=== PATIENT | male | born 1960 | race African-American/Black ===

== ENCOUNTER 2019-02-02 09:26 | Emergency (ER) | payer MEDICAID ==
[~2019-02-02] VITALS: Ht 172.7 cm; Wt 90.0 kg
[~2019-02-02 09:26] MED LIST: HYDR25TA
[2019-02-02] MEDS ORDERED: MORPHINE SULFATE 4 MG/ML CPJ (NOT FOR IM USE) IV STA (10:28)
[2019-02-02] MEDS ORDERED: ONDANSETRON HCL 4MG/2ML INJ IV STA (10:28)
[2019-02-02 10:52] LABS: CHLORIDE 108 mEq/L (98-107)
[2019-02-02 10:58] LABS: BASOPHILS % 0.8 % (0.0-2.0); EOSINOPHILS % 0.4 % (0.0-5.0); HEMATOCRIT. 41.7 % (42.0-52.0); HEMOGLOBIN. 14.4 g/dL (14.0-18.0); LYMPHOCYTES % 18.5 % (20.0-50.0); MEAN CORPUSCULAR HEMOGLOBIN 25.4 pg (28.0-32.0); MEAN CORPUSCULAR VOLUME 73.8 fL (80.0-94.0); MEAN PLATELET VOLUME 8.3 fl (7.4-10.4); MONOCYTES % 7.7 % (2.0-8.0); NEUTROPHILS % 72.6 % (40.0-76.0); PLATELET 375 x1000/uL (130-400); RED BLOOD CELL COUNT 5.65 mill/uL (4.7-6.1); RED CELL DISTRIBUTION WIDTH 16.3 % (11.6-14.6)
[2019-02-02 11:04] LABS: INR 0.9; PROTHROMBIN TIME 9.5 sec (9.6-11.0)
[2019-02-02] MEDS ORDERED: SODIUM CHLORIDE 0.9% 1,000 ML IV ONE (11:38)
[2019-02-02] MEDS ORDERED: LIDOCAINE 1%/EPI 1:100,000 10 ML VIAL IJ ONE (11:45)
[2019-02-02] MEDS ORDERED: CLONIDINE 0.1MG TABLET PO ONE (12:00)
[2019-02-02] MEDS ORDERED: LIDOCAINE HCL/EPINEPHRINE 1%-EPI 1:100,000 20 ML VIAL INFIL ONE (12:06)
[2019-02-02 14:00] VITALS: BP 161/112
== END 2019-02-02 15:20 | disposition home or self-care (01) ==
LOC: ER 09:26
DX: M25.462 Effusion, left knee (principal); I10 Essential (primary) hypertension; N19 Unspecified kidney failure
CPT/HCPCS: 20610; 36415; 73562; 80053; 84550; 85025; 85610; 85651; 86140; 87070; 87205; 89050; 89060; 96374; 96375; 99284; J2270; J2405; J3490; J7030; Z7610

== ENCOUNTER 2019-07-02 12:30 | Inpatient (IN) | payer MEDICAID, OTHER ==
[~2019-07-02] VITALS: Ht 170.2 cm; Wt 83.9 kg
[2019-07-02] MEDS ORDERED: HYDROCHLOROTHIAZIDE 25MG TABLET PO ONE (15:30)
[2019-07-02] MEDS ORDERED: AMLODIPINE 5MG TABLET PO ONE ×2 (15:30→23:30)
[2019-07-02 15:54] LABS: BASOPHILS % 0.5 % (0.0-2.0); EOSINOPHILS % 0.6 % (0.0-5.0); HEMATOCRIT. 43.1 % (42.0-52.0); HEMOGLOBIN. 14.8 g/dL (14.0-18.0); LYMPHOCYTES % 26.8 % (20.0-50.0); MEAN CORPUSCULAR HEMOGLOBIN 25.6 pg (28.0-32.0); MEAN CORPUSCULAR VOLUME 74.2 fL (80.0-94.0); MEAN PLATELET VOLUME 7.9 fl (7.4-10.4); MONOCYTES % 9.4 % (2.0-8.0); NEUTROPHILS % 62.7 % (40.0-76.0); PLATELET 415 x1000/uL (130-400)
[2019-07-02 15:58] LABS: CHLORIDE 106 mEq/L (98-107)
[2019-07-02] MEDS ORDERED: ACETAMINOPHEN 325MG TABLET PO ONE (17:45)
[2019-07-02] MEDS ORDERED: CLONIDINE 0.2MG TABLET PO ONE (18:30)
[2019-07-02 22:02] LABS: CLARITY URINE CLEAR (CLEAR); COLOR URINE YELLOW (YELLOW); KETONES URINE NEGATIVE (NEGATIVE); LEUKOCYTE ESTERASE URINE NEGATIVE (NEGATIVE); NITRITE URINE NEGATIVE (NEGATIVE); OCCULT BLOOD URINE TRACE (NEGATIVE); PH URINE 7.5 (4.5-8.0); PROTEIN URINE 2+ (NEGATIVE)
[2019-07-02 22:15] LABS: *AMPHETAMINES SCREEN URINE NEGATIVE (NEGATIVE)
[2019-07-02 22:16] LABS: *BARBITURATES SCREEN URINE NEGATIVE (NEGATIVE); *BENZODIAZEPINES SCREEN URINE NEGATIVE (NEGATIVE); *COCAINE SCREEN URINE PRESUMTIVE POSITIVE (NEGATIVE); CANNABINOID URINE SCREEN NEGATIVE (NEGATIVE); METHADONE URINE SCREEN NEGATIVE (NEGATIVE); OPIATES URINE SCREEN NEGATIVE (NEGATIVE); PHENCYCLIDINE URINE SCREEN NEGATIVE (NEGATIVE)
[2019-07-03] MEDS ORDERED: CLONIDINE 0.1MG TABLET PO NR (09:00)
[2019-07-03] MEDS ORDERED: MORPHINE SULFATE 2 MG/ML CPJ (NOT FOR IM USE) IV PRN (09:00)
[2019-07-03] MEDS ORDERED: ONDANSETRON HCL 4MG/2ML INJ IV PRN (09:15)
[2019-07-03] MEDS: SODIUM CHLORIDE 0.9% 1,000 ML IV SCH ×2 (09:15→23:10)
[2019-07-03] MEDS ORDERED: POTASSIUM CHLORIDE 20MEQ TABLET SR PO NR (09:15)
[2019-07-03] MEDS: HYDROCODONE/ACETAMINOPHEN 5/325MG TABLET PO PRN ×2 (10:29→16:12)
[2019-07-03] MEDS: ACETAMINOPHEN 325MG TABLET PO PRN (10:31)
[2019-07-03] MEDS ORDERED: TAMSULOSIN HCL 0.4MG SR CAPSULE PO NR (12:45)
[2019-07-03 15:05] VITALS: BP 175/114
[2019-07-03] MEDS: CLONIDINE 0.1MG TABLET PO PRN ×2 (15:14→23:50)
[2019-07-03] MEDS ORDERED: CLON0.1T MT (16:07)
[2019-07-03] MEDS ORDERED: LISI2.5T47 MT (16:08)
[2019-07-03] MEDS: HYDRALAZINE HCL 50MG TABLET PO SCH (16:12)
[2019-07-03] MEDS: AMLODIPINE 5MG TABLET PO SCH ×2 (16:12→20:43)
[2019-07-03 20:00] VITALS: BP 137/93
[2019-07-04] VITALS (7 sets, daily range): BP systolic 118–156; BP diastolic 85–101
[2019-07-04] MEDS: CLONIDINE 0.1MG TABLET PO PRN ×2 (05:51→08:25)
[2019-07-04 07:31] LABS: BASOPHILS % 0.4 % (0.0-2.0); EOSINOPHILS % 1.1 % (0.0-5.0); HEMATOCRIT. 39.7 % (42.0-52.0); HEMOGLOBIN. 14.3 g/dL (14.0-18.0); LYMPHOCYTES % 39.6 % (20.0-50.0); MEAN CORPUSCULAR HEMOGLOBIN 26.8 pg (28.0-32.0); MEAN CORPUSCULAR VOLUME 74.7 fL (80.0-94.0); MEAN PLATELET VOLUME 7.8 fl (7.4-10.4); MONOCYTES % 9.3 % (2.0-8.0); NEUTROPHILS % 49.6 % (40.0-76.0); PLATELET 376 x1000/uL (130-400); RED BLOOD CELL COUNT 5.32 mill/uL (4.7-6.1); RED CELL DISTRIBUTION WIDTH 14.7 % (11.6-14.6)
[2019-07-04 08:08] LABS: PHOSPHORUS 2.5 mg/dL (2.5-4.9)
[2019-07-04] MEDS: HYDRALAZINE HCL 50MG TABLET PO SCH (08:25)
[2019-07-04] MEDS: AMLODIPINE 5MG TABLET PO SCH (08:26)
[2019-07-04] MEDS: ACETAMINOPHEN 325MG TABLET PO PRN (08:29)
[2019-07-04] MEDS ORDERED: TAMSULOSIN HCL 0.4MG SR CAPSULE PO SCH (09:00)
[2019-07-04] MEDS: SODIUM CHLORIDE 0.9% 1,000 ML IV SCH (12:13)
[2019-07-04] MEDS ORDERED: POTASSIUM CHLORIDE 20MEQ TABLET SR PO NR (12:15)
[2019-07-04] MEDS ORDERED: AMLO5TAB88 PO (14:26)
[2019-07-04] MEDS ORDERED: TAMS-11 MT (14:26)
[2019-07-04] MEDS ORDERED: HYDR-4135 MT (14:26)
== END 2019-07-04 17:01 | disposition home or self-care (01) | DRG 469 ==
LOC: ER 14:04 → 6WST 20:59 → EDBEDREQ 21:02 → EDBEDREQTM 21:02 → ENRESERV 07-03 13:16
PROVIDERS: ADMIT Internal Medicine; ATTEND Internal Medicine
DX: N17.9 Acute kidney failure, unspecified (principal); E43 Unspecified severe protein-calorie malnutrition; I16.0 Hypertensive urgency; N18.4 Chronic kidney disease, stage 4 (severe); I12.9 Hypertensive chronic kidney disease with stage 1 through stage 4 chronic kidney disease, or unspecified chronic kidney disease; E87.6 Hypokalemia; N40.0 Benign prostatic hyperplasia without lower urinary tract symptoms; F14.129 Cocaine abuse with intoxication, unspecified; N28.1 Cyst of kidney, acquired; F17.200 Nicotine dependence, unspecified, uncomplicated; G43.909 Migraine, unspecified, not intractable, without status migrainosus; M19.90 Unspecified osteoarthritis, unspecified site; K21.9 Gastro-esophageal reflux disease without esophagitis; Z91.19 Patient's noncompliance with other medical treatment and regimen; Z71.51 Drug abuse counseling and surveillance of drug abuser; Z82.49 Family history of ischemic heart disease and other diseases of the circulatory system; Z87.440 Personal history of urinary (tract) infections; Z91.14 Patient's other noncompliance with medication regimen; Z68.29 Body mass index [BMI] 29.0-29.9, adult
CPT/HCPCS: 36415; 71045; 73130; 76770; 80048; 80053; 80061; 80305; 81003; 83036; 83605; 83735; 83880; 84100; 84443; 84484; 85025; 93005; 93306; 99285; J2270

== ENCOUNTER 2020-03-17 19:52 | Emergency (ER) | payer OTHER ==
[~2020-03-17] VITALS: Ht 175.3 cm; Wt 82.1 kg
[~2020-03-17 19:52] MED LIST changes: +AMLO5TAB88 PO; +HYDR-4135 MT; -HYDR25TA; +TAMS-11 MT
[2020-03-17 22:12] LABS: BASOPHILS % 0.6 % (0.0-2.0); EOSINOPHILS % 2.3 % (0.0-5.0); HEMATOCRIT. 42.5 % (42.0-52.0); HEMOGLOBIN. 14.5 g/dL (14.0-18.0); LYMPHOCYTES % 38.6 % (20.0-50.0); MEAN CORPUSCULAR HEMOGLOBIN 26.2 pg (28.0-32.0); MEAN CORPUSCULAR VOLUME 77.2 fL (80.0-94.0); MEAN PLATELET VOLUME 8.4 fl (7.4-10.4); NEUTROPHILS % 48.5 % (40.0-76.0); PLATELET 330 x1000/uL (130-400); RED BLOOD CELL COUNT 5.51 mill/uL (4.7-6.1); RED CELL DISTRIBUTION WIDTH 16.2 % (11.6-14.6)
[2020-03-17] MEDS ORDERED: AMLODIPINE 10MG TABLET PO ONE (22:15)
[2020-03-17] MEDS ORDERED: ACETAMINOPHEN 325MG TABLET PO ONE (22:15)
[2020-03-17 22:17] LABS: CHLORIDE 111 mEq/L (98-107)
[2020-03-18] MEDS ORDERED: CLONIDINE 0.1MG TABLET PO ONE (01:15)
[2020-03-18 10:12] VITALS: BP 154/95
== END 2020-03-18 10:41 | disposition short-term general hospital (02) ==
LOC: ER 19:52
DX: I16.0 Hypertensive urgency (principal); I10 Essential (primary) hypertension; N28.9 Disorder of kidney and ureter, unspecified; F14.10 Cocaine abuse, uncomplicated; F12.10 Cannabis abuse, uncomplicated; Z79.899 Other long term (current) drug therapy
CPT/HCPCS: 36415; 71045; 80053; 83880; 84484; 85025; 93005; 99285

== ENCOUNTER 2021-06-29 06:46 | Inpatient (IN) | payer OTHER ==
[~2021-06-29] VITALS: Ht 175.3 cm; Wt 78.0 kg
[~2021-06-29 06:46] MED LIST changes: +ASPI-986 MT
[2021-06-29 11:12] LABS: HEMATOCRIT. 37.2 % (42.0-52.0); HEMOGLOBIN. 12.5 g/dL (14.0-18.0); MEAN CORPUSCULAR HEMOGLOBIN 24.9 pg (28.0-32.0); MEAN CORPUSCULAR VOLUME 74.2 fL (80.0-94.0); MEAN PLATELET VOLUME 8.1 fl (7.4-10.4); PLATELET 335 x1000/uL (130-400); RED BLOOD CELL COUNT 5.01 mill/uL (4.7-6.1)
[2021-06-29 11:18] LABS: CHLORIDE 109 mEq/L (98-107)
[2021-06-29 11:56] LABS: PLATELET ESTIMATE NORMAL
[2021-06-29] MEDS ORDERED: ASPIRIN 325MG TABLET PO ONE (12:30)
[2021-06-29] MEDS ORDERED: NITROGLYCERIN 0.4MG TABLET SL SL ONE (12:30)
[2021-06-29] MEDS ORDERED: FUROSEMIDE 100MG/10ML VIAL IVP ONE (12:30)
[2021-06-29] MEDS ORDERED: ONDANSETRON HCL 4MG/2ML INJ IV PRN (16:15)
[2021-06-29] MEDS ORDERED: ACETAMINOPHEN 325MG TABLET PO PRN (16:15)
[2021-06-29] MEDS: AMLODIPINE 10MG TABLET PO SCH (17:01)
[2021-06-29] MEDS: FUROSEMIDE 40MG/4ML VIAL IVP SCH (17:05)
[2021-06-29] MEDS: METOPROLOL TARTRATE 50MG TABLET PO SCH (21:32)
[2021-06-30] MEDS: CLONIDINE 0.1MG TABLET PO PRN (00:23)
[2021-06-30 04:00] VITALS: BP 151/103
[2021-06-30 04:03] VITALS: BP 151/103
[2021-06-30 08:00] VITALS: BP 145/107
[2021-06-30] MEDS: FUROSEMIDE 40MG/4ML VIAL IVP SCH ×2 (08:53→16:35)
[2021-06-30] MEDS: METOPROLOL TARTRATE 50MG TABLET PO SCH ×2 (08:54→20:55)
[2021-06-30] MEDS: AMLODIPINE 10MG TABLET PO SCH (08:54)
[2021-06-30 11:29] LABS: HEMATOCRIT. 31.8 % (42.0-52.0); HEMOGLOBIN. 10.6 g/dL (14.0-18.0); MEAN CORPUSCULAR HEMOGLOBIN 24.7 pg (28.0-32.0); MEAN CORPUSCULAR VOLUME 73.6 fL (80.0-94.0); MEAN PLATELET VOLUME 8.7 fl (7.4-10.4); PLATELET 270 x1000/uL (130-400); RED BLOOD CELL COUNT 4.32 mill/uL (4.7-6.1); RED CELL DISTRIBUTION WIDTH 15.1 % (11.6-14.6)
[2021-06-30 12:00] VITALS: BP 138/74
[2021-06-30 13:11] LABS: BG BASE EXCESS -7.1 mmol/L (-2.0-2.0); BG CARBOXYHEMOGLOBIN 0.3 % (0.5-1.5); BG DEOXYHEMOGLOBIN 6.5 % (0.0-5.0); BG HCO3 ACT 17.6 mmol/L (22.0-26.0); BG METHEMOGLOBIN 0.2 % (0.0-1.5); BG OXYGEN SATURATION 93.5 % (92.0-98.5); BG PCO2 33.2 mmHg (35.0-45.0); BG PH 7.343 (7.350-7.450); BG PO2 77.4 mmHg (75.0-100.0); BG SAMPLE SITE LEFT RADIAL; BG VENT MODE NASAL CANNULA
[2021-06-30] MEDS: CEFTRIAXONE 1,000 MG in DEXTROSE 5% WATER 50 ML IV SCH (13:23)
[2021-06-30] MEDS: DEXAMETHASONE 10 MG/ML VIAL IV SCH (13:23)
[2021-06-30 16:00] VITALS: BP 141/98
[2021-06-30 16:01] LABS: CLARITY URINE CLEAR (CLEAR); COLOR URINE YELLOW (YELLOW); KETONES URINE NEGATIVE (NEGATIVE); LEUKOCYTE ESTERASE URINE NEGATIVE (NEGATIVE); NITRITE URINE NEGATIVE (NEGATIVE); OCCULT BLOOD URINE 2+ (NEGATIVE); PROTEIN URINE 3+ (NEGATIVE); SPECIFIC GRAVITY URINE 1.012 (1.005-1.030); UROBILINOGEN URINE 0.2 E.U./dL (0.2-1.0)
[2021-06-30 16:19] LABS: *AMPHETAMINES SCREEN URINE NEGATIVE (NEGATIVE); *BARBITURATES SCREEN URINE NEGATIVE (NEGATIVE); *BENZODIAZEPINES SCREEN URINE NEGATIVE (NEGATIVE); *COCAINE SCREEN URINE PRESUMTIVE POSITIVE (NEGATIVE); METHADONE URINE SCREEN NEGATIVE (NEGATIVE)
[2021-06-30 16:20] LABS: CANNABINOID URINE SCREEN NEGATIVE (NEGATIVE); OPIATES URINE SCREEN NEGATIVE (NEGATIVE); PHENCYCLIDINE URINE SCREEN NEGATIVE (NEGATIVE)
[2021-06-30 20:00] VITALS: BP 144/109
[2021-07-01 04:00] VITALS: BP 148/106
[2021-07-01 08:00] VITALS: BP 137/102
[2021-07-01 08:47] LABS: PHOSPHORUS 6.4 mg/dL (2.5-4.9)
[2021-07-01] MEDS: METOPROLOL TARTRATE 50MG TABLET PO SCH ×2 (09:09→21:45)
[2021-07-01] MEDS: AMLODIPINE 10MG TABLET PO SCH (09:09)
[2021-07-01] MEDS: FUROSEMIDE 40MG/4ML VIAL IVP SCH (09:10)
[2021-07-01] MEDS: DEXAMETHASONE 10 MG/ML VIAL IV SCH (09:10)
[2021-07-01 11:50] LABS: BASOPHILS % 0.3 % (0.0-2.0); EOSINOPHILS % 0.2 % (0.0-5.0); HEMATOCRIT. 34.7 % (42.0-52.0); HEMOGLOBIN. 11.5 g/dL (14.0-18.0); LYMPHOCYTES % 22.8 % (20.0-50.0); MEAN CORPUSCULAR HEMOGLOBIN 24.7 pg (28.0-32.0); MEAN CORPUSCULAR VOLUME 74.3 fL (80.0-94.0); MEAN PLATELET VOLUME 9.2 fl (7.4-10.4); MONOCYTES % 12.6 % (2.0-8.0); NEUTROPHILS % 64.1 % (40.0-76.0); PLATELET 331 x1000/uL (130-400); RED BLOOD CELL COUNT 4.67 mill/uL (4.7-6.1); RED CELL DISTRIBUTION WIDTH 15.2 % (11.6-14.6)
[2021-07-01 14:00] VITALS: BP 134/104
[2021-07-01] MEDS: CEFTRIAXONE 1,000 MG in DEXTROSE 5% WATER 50 ML IV SCH (14:27)
[2021-07-01 14:36] LABS: PLATELET ESTIMATE NORMAL
[2021-07-01 16:30] VITALS: BP 125/90
[2021-07-01] MEDS ORDERED: ALBUTEROL 6.7GM HFA INHALER ORI PRN (17:00)
[2021-07-01 20:00] VITALS: BP 139/93
[2021-07-02] VITALS (7 sets, daily range): BP systolic 116–141; BP diastolic 89–103
[2021-07-02 06:54] LABS: PHOSPHORUS 6.6 mg/dL (2.5-4.9)
[2021-07-02 06:56] LABS: HEMATOCRIT. 33.4 % (42.0-52.0); HEMOGLOBIN. 11.3 g/dL (14.0-18.0); LYMPHOCYTES % 16.3 % (20.0-50.0); MEAN CORPUSCULAR HEMOGLOBIN 24.9 pg (28.0-32.0); MEAN CORPUSCULAR VOLUME 73.5 fL (80.0-94.0); MEAN PLATELET VOLUME 8.7 fl (7.4-10.4); MONOCYTES % 9.3 % (2.0-8.0); NEUTROPHILS % 74.4 % (40.0-76.0); PLATELET 332 x1000/uL (130-400); RED BLOOD CELL COUNT 4.54 mill/uL (4.7-6.1); RED CELL DISTRIBUTION WIDTH 15.2 % (11.6-14.6)
[2021-07-02] MEDS: AMLODIPINE 10MG TABLET PO SCH (08:15)
[2021-07-02] MEDS: METOPROLOL TARTRATE 50MG TABLET PO SCH ×2 (08:15→21:00)
[2021-07-02] MEDS: DEXAMETHASONE 10 MG/ML VIAL IV SCH (08:15)
[2021-07-02] MEDS: CEFTRIAXONE 1,000 MG in DEXTROSE 5% WATER 50 ML IV SCH (14:25)
[2021-07-03] VITALS: BP 140/98
[2021-07-03 07:34] LABS: BASOPHILS % 0.1 % (0.0-2.0); EOSINOPHILS % 0.2 % (0.0-5.0); HEMATOCRIT. 31.6 % (42.0-52.0); HEMOGLOBIN. 10.6 g/dL (14.0-18.0); LYMPHOCYTES % 17.5 % (20.0-50.0); MEAN CORPUSCULAR HEMOGLOBIN 24.7 pg (28.0-32.0); MEAN CORPUSCULAR VOLUME 73.5 fL (80.0-94.0); NEUTROPHILS % 73.2 % (40.0-76.0); PLATELET 339 x1000/uL (130-400); RED CELL DISTRIBUTION WIDTH 15.3 % (11.6-14.6)
[2021-07-03 07:51] LABS: PHOSPHORUS 5.4 mg/dL (2.5-4.9)
[2021-07-03 08:00] VITALS: BP 105/55
[2021-07-03] MEDS: METOPROLOL TARTRATE 50MG TABLET PO SCH ×2 (08:32→20:34)
[2021-07-03] MEDS: AMLODIPINE 10MG TABLET PO SCH (08:32)
[2021-07-03] MEDS: DEXAMETHASONE 10 MG/ML VIAL IV SCH (08:33)
[2021-07-03 12:00] VITALS: BP 123/90
[2021-07-03] MEDS: CEFTRIAXONE 1,000 MG in DEXTROSE 5% WATER 50 ML IV SCH (14:41)
[2021-07-03 16:00] VITALS: BP 126/89
[2021-07-03 20:00] VITALS: BP 148/94
[2021-07-04 04:03] VITALS: BP 132/85
[2021-07-04 08:00] VITALS: BP 138/109
[2021-07-04] MEDS: DEXAMETHASONE 10 MG/ML VIAL IV SCH (08:17)
[2021-07-04] MEDS: METOPROLOL TARTRATE 50MG TABLET PO SCH ×2 (08:18→20:28)
[2021-07-04] MEDS: AMLODIPINE 10MG TABLET PO SCH (08:18)
[2021-07-04 09:08] LABS: BASOPHILS % 0.1 % (0.0-2.0); EOSINOPHILS % 0.2 % (0.0-5.0); HEMATOCRIT. 33.4 % (42.0-52.0); HEMOGLOBIN. 11.1 g/dL (14.0-18.0); LYMPHOCYTES % 19.7 % (20.0-50.0); MEAN CORPUSCULAR HEMOGLOBIN 24.7 pg (28.0-32.0); MEAN CORPUSCULAR VOLUME 74.6 fL (80.0-94.0); MEAN PLATELET VOLUME 8.9 fl (7.4-10.4); PLATELET 366 x1000/uL (130-400); RED BLOOD CELL COUNT 4.47 mill/uL (4.7-6.1); RED CELL DISTRIBUTION WIDTH 15.3 % (11.6-14.6)
[2021-07-04 09:27] LABS: PHOSPHORUS 4.7 mg/dL (2.5-4.9)
[2021-07-04 12:00] VITALS: BP 129/93
[2021-07-04] MEDS: CEFTRIAXONE 1,000 MG in DEXTROSE 5% WATER 50 ML IV SCH (14:24)
[2021-07-04 16:00] VITALS: BP 132/93
[2021-07-04 20:00] VITALS: BP 149/106
[2021-07-05 04:00] VITALS: BP 142/86
[2021-07-05 08:00] VITALS: BP 169/104
[2021-07-05] MEDS: AMLODIPINE 10MG TABLET PO SCH (08:56)
[2021-07-05] MEDS: DEXAMETHASONE 10 MG/ML VIAL IV SCH (08:56)
[2021-07-05] MEDS: METOPROLOL TARTRATE 50MG TABLET PO SCH ×2 (08:56→21:15)
[2021-07-05 11:17] LABS: HEMATOCRIT. 32.8 % (42.0-52.0); HEMOGLOBIN. 10.9 g/dL (14.0-18.0); MEAN CORPUSCULAR HEMOGLOBIN 24.5 pg (28.0-32.0); MEAN CORPUSCULAR VOLUME 73.4 fL (80.0-94.0); MEAN PLATELET VOLUME 8.7 fl (7.4-10.4); PLATELET 421 x1000/uL (130-400); RED BLOOD CELL COUNT 4.47 mill/uL (4.7-6.1); RED CELL DISTRIBUTION WIDTH 15.2 % (11.6-14.6)
[2021-07-05 11:25] LABS: PHOSPHORUS 3.8 mg/dL (2.5-4.9)
[2021-07-05 12:00] VITALS: BP 129/55
[2021-07-05 14:14] LABS: PLATELET ESTIMATE SLIGHTLY INCREASED
[2021-07-05] MEDS: CEFTRIAXONE 1,000 MG in DEXTROSE 5% WATER 50 ML IV SCH (15:44)
[2021-07-05 15:48] VITALS: BP 135/86
[2021-07-05] MEDS ORDERED: ALBU18HF2 IH (19:37)
[2021-07-05 20:00] VITALS: BP 158/102
[2021-07-06 04:00] VITALS: BP 148/94
[2021-07-06 06:33] VITALS: BP 145/94
[2021-07-06 08:00] VITALS: BP 165/107
[2021-07-06] MEDS: AMLODIPINE 10MG TABLET PO SCH (08:47)
[2021-07-06] MEDS: DEXAMETHASONE 10 MG/ML VIAL IV SCH (08:47)
[2021-07-06] MEDS: METOPROLOL TARTRATE 50MG TABLET PO SCH (08:47)
[2021-07-06 11:29] LABS: BASOPHILS % 0.3 % (0.0-2.0); EOSINOPHILS % 0.5 % (0.0-5.0); HEMATOCRIT. 33.4 % (42.0-52.0); HEMOGLOBIN. 11.2 g/dL (14.0-18.0); LYMPHOCYTES % 11.1 % (20.0-50.0); MEAN CORPUSCULAR HEMOGLOBIN 24.7 pg (28.0-32.0); MEAN CORPUSCULAR VOLUME 73.5 fL (80.0-94.0); MEAN PLATELET VOLUME 8.9 fl (7.4-10.4); MONOCYTES % 7.4 % (2.0-8.0); NEUTROPHILS % 80.7 % (40.0-76.0); PLATELET 419 x1000/uL (130-400); RED BLOOD CELL COUNT 4.54 mill/uL (4.7-6.1); RED CELL DISTRIBUTION WIDTH 15.5 % (11.6-14.6)
[2021-07-06 11:38] LABS: PHOSPHORUS 3.4 mg/dL (2.5-4.9)
[2021-07-06 11:41] VITALS: BP 160/115
[2021-07-06] MEDS: CLONIDINE 0.1MG TABLET PO PRN (11:42)
[2021-07-06 12:50] VITALS: BP 145/94
== END 2021-07-06 14:35 | disposition home or self-care (01) | DRG 720 ==
LOC: ER 06:46 → EDBEDREQTM 15:00 → EDBEDREQ 15:00 → ENRESERV 06-30 02:51 → 7EST 06-30 03:01
PROVIDERS: ADMIT Internal Medicine; ATTEND Internal Medicine
DX: A41.89 Other specified sepsis (principal); J96.01 Acute respiratory failure with hypoxia; N17.0 Acute kidney failure with tubular necrosis; J12.82 Pneumonia due to coronavirus disease 2019; E43 Unspecified severe protein-calorie malnutrition; U07.1 COVID-19; E11.22 Type 2 diabetes mellitus with diabetic chronic kidney disease; J68.0 Bronchitis and pneumonitis due to chemicals, gases, fumes and vapors; E87.8 Other disorders of electrolyte and fluid balance, not elsewhere classified; I13.0 Hypertensive heart and chronic kidney disease with heart failure and stage 1 through stage 4 chronic kidney disease, or unspecified chronic kidney disease; I50.9 Heart failure, unspecified; D64.9 Anemia, unspecified; E87.5 Hyperkalemia; F14.10 Cocaine abuse, uncomplicated; N18.4 Chronic kidney disease, stage 4 (severe); N28.1 Cyst of kidney, acquired; N40.0 Benign prostatic hyperplasia without lower urinary tract symptoms; Z82.49 Family history of ischemic heart disease and other diseases of the circulatory system; Z83.3 Family history of diabetes mellitus; N18.9 Chronic kidney disease, unspecified; Z86.16 Personal history of COVID-19; Z68.25 Body mass index [BMI] 25.0-25.9, adult
CPT/HCPCS: 36415; 36600; 71045; 76770; 80048; 80053; 80305; 81003; 82375; 82550; 82805; 83735; 83880; 84100; 84484; 85025; 87426; 93005; 99285; C9803; J0696; J1100; J1940; J7060; U0003; U0005

== ENCOUNTER 2021-07-18 06:23 | Inpatient (IN) | payer OTHER ==
[~2021-07-18] VITALS: Ht 182.9 cm; Wt 85.7 kg
[~2021-07-18 06:23] MED LIST changes: +ALBU18HF2 IH
[2021-07-18 07:29] LABS: BASOPHILS % 0.9 % (0.0-2.0); EOSINOPHILS % 0.8 % (0.0-5.0); HEMATOCRIT. 33.5 % (42.0-52.0); LYMPHOCYTES % 23.8 % (20.0-50.0); MEAN CORPUSCULAR HEMOGLOBIN 24.4 pg (28.0-32.0); MEAN CORPUSCULAR VOLUME 74.4 fL (80.0-94.0); MEAN PLATELET VOLUME 8.7 fl (7.4-10.4); MONOCYTES % 11.6 % (2.0-8.0); NEUTROPHILS % 62.9 % (40.0-76.0); PLATELET 394 x1000/uL (130-400); RED CELL DISTRIBUTION WIDTH 16.1 % (11.6-14.6)
[2021-07-18 07:35] LABS: CHLORIDE 110 mEq/L (98-107)
[2021-07-18] MEDS ORDERED: NITROGLYCERIN 0.4MG TABLET SL SL PRN (11:45)
[2021-07-18] MEDS ORDERED: ENOXAPARIN 40MG/0.4ML SYR SUBCUT SCH (11:45)
[2021-07-18] MEDS ORDERED: ACETAMINOPHEN 325MG TABLET PO PRN ×2 (11:45)
[2021-07-18] MEDS ORDERED: CLONIDINE 0.1MG TABLET PO PRN (11:45)
[2021-07-18] MEDS ORDERED: MAGNESIUM/ALUMINUM HYDROXIDE/SIMETHICONE 30ML UDC PO PRN (11:45)
[2021-07-18] MEDS ORDERED: GUAIFENESIN 200MG/10ML SUGAR FREE UDC PO PRN (11:45)
[2021-07-18] MEDS ORDERED: DOCUSATE SODIUM 100MG CAPSULE PO PRN (11:45)
[2021-07-18] MEDS ORDERED: IPRATROPIUM/ALBUTEROL 0.5-3(2.5)MG/3ML NEB NEB PRN (11:45)
[2021-07-18] MEDS ORDERED: METOLAZONE 10MG TABLET PO NR (11:45)
[2021-07-18] MEDS ORDERED: ONDANSETRON HCL 4MG/2ML INJ IV PRN (11:45)
[2021-07-18] MEDS: ENOXAPARIN 30MG/0.3ML SYR SUBCUT SCH (12:00)
[2021-07-18 12:30] LABS: CLARITY URINE CLEAR (CLEAR); COLOR URINE YELLOW (YELLOW); KETONES URINE NEGATIVE (NEGATIVE); LEUKOCYTE ESTERASE URINE NEGATIVE (NEGATIVE); NITRITE URINE NEGATIVE (NEGATIVE); OCCULT BLOOD URINE TRACE (NEGATIVE); PROTEIN URINE 2+ (NEGATIVE); SPECIFIC GRAVITY URINE 1.014 (1.005-1.030); UROBILINOGEN URINE 0.2 E.U./dL (0.2-1.0)
[2021-07-18 12:44] LABS: *AMPHETAMINES SCREEN URINE NEGATIVE (NEGATIVE); *BARBITURATES SCREEN URINE NEGATIVE (NEGATIVE); *BENZODIAZEPINES SCREEN URINE NEGATIVE (NEGATIVE); *COCAINE SCREEN URINE PRESUMTIVE POSITIVE (NEGATIVE); CANNABINOID URINE SCREEN NEGATIVE (NEGATIVE); METHADONE URINE SCREEN NEGATIVE (NEGATIVE); PHENCYCLIDINE URINE SCREEN NEGATIVE (NEGATIVE)
[2021-07-18 12:45] LABS: OPIATES URINE SCREEN NEGATIVE (NEGATIVE)
[2021-07-18 12:50] LABS: BG BASE EXCESS -9.3 mmol/L (-2.0-2.0); BG CARBOXYHEMOGLOBIN 0.5 % (0.5-1.5); BG FRACTION INSPIRED OXYGEN 21; BG HCO3 ACT 14.4 mmol/L (22.0-26.0); BG METHEMOGLOBIN 0.2 % (0.0-1.5); BG OXYHEMOGLOBIN 96.3 % (94.0-97.0); BG PCO2 25.2 mmHg (35.0-45.0); BG PH 7.376 (7.350-7.450); BG PO2 99.5 mmHg (75.0-100.0); BG SAMPLE SITE RIGHT RADIAL; BG TOTAL HEMOGLOBIN 10.9 g/dL (12.0-18.0); BG VENT MODE ROOM AIR
[2021-07-18 12:55] LABS: FOLIC ACID (FOLATE) SERUM 7.9 ng/mL (>5.38)
[2021-07-18 16:07] LABS: CREATINE KINASE MB FRACTION 4.5 ng/mL (0.5-3.6)
[2021-07-18] MEDS: FUROSEMIDE 40MG/4ML VIAL IVP SCH (17:24)
[2021-07-18 19:44] LABS: CLARITY URINE CLEAR (CLEAR); COLOR URINE YELLOW (YELLOW); KETONES URINE NEGATIVE (NEGATIVE); LEUKOCYTE ESTERASE URINE NEGATIVE (NEGATIVE); NITRITE URINE NEGATIVE (NEGATIVE); OCCULT BLOOD URINE NEGATIVE (NEGATIVE); PROTEIN URINE 1+ (NEGATIVE); SPECIFIC GRAVITY URINE 1.008 (1.005-1.030); UROBILINOGEN URINE 0.2 E.U./dL (0.2-1.0)
[2021-07-18 19:53] LABS: *AMPHETAMINES SCREEN URINE NEGATIVE (NEGATIVE); *BARBITURATES SCREEN URINE NEGATIVE (NEGATIVE); *BENZODIAZEPINES SCREEN URINE NEGATIVE (NEGATIVE); *COCAINE SCREEN URINE PRESUMTIVE POSITIVE (NEGATIVE); METHADONE URINE SCREEN NEGATIVE (NEGATIVE); OPIATES URINE SCREEN NEGATIVE (NEGATIVE)
[2021-07-18 19:54] LABS: CANNABINOID URINE SCREEN NEGATIVE (NEGATIVE); PHENCYCLIDINE URINE SCREEN NEGATIVE (NEGATIVE)
[2021-07-18 20:44] LABS: CREATINE KINASE MB FRACTION 4.7 ng/mL (0.5-3.6)
[2021-07-18] MEDS ORDERED: ZOLPIDEM TARTRATE 5MG TABLET PO PRN (21:00)
[2021-07-18] MEDS: FAMOTIDINE 20MG TABLET PO SCH (21:06)
[2021-07-19 04:13] LABS: BASOPHILS % 0.6 % (0.0-2.0); EOSINOPHILS % 1.2 % (0.0-5.0); HEMATOCRIT. 27.4 % (42.0-52.0); HEMOGLOBIN. 9.3 g/dL (14.0-18.0); MEAN CORPUSCULAR HEMOGLOBIN 24.8 pg (28.0-32.0); MEAN CORPUSCULAR VOLUME 72.7 fL (80.0-94.0); MEAN PLATELET VOLUME 7.7 fl (7.4-10.4); MONOCYTES % 13.9 % (2.0-8.0); NEUTROPHILS % 65.3 % (40.0-76.0); PLATELET 300 x1000/uL (130-400); RED BLOOD CELL COUNT 3.76 mill/uL (4.7-6.1)
[2021-07-19 04:20] LABS: CHLORIDE 107 mEq/L (98-107)
[2021-07-19 04:26] LABS: PHOSPHORUS 5.7 mg/dL (2.5-4.9)
[2021-07-19 04:30] LABS: CREATINE KINASE 70 IU/L (39-308); T4 FREE 0.99 ng/dL (0.76-1.46)
[2021-07-19] MEDS: FUROSEMIDE 40MG/4ML VIAL IVP SCH ×2 (06:57→17:59)
[2021-07-19 08:00] VITALS: BP 163/97
[2021-07-19 12:00] VITALS: BP 141/87
[2021-07-19] MEDS: ASPIRIN 325MG EC TABLET PO SCH (12:07)
[2021-07-19] MEDS: AMLODIPINE 10MG TABLET PO SCH (12:07)
[2021-07-19] MEDS: ENOXAPARIN 30MG/0.3ML SYR SUBCUT SCH (12:11)
[2021-07-19 16:00] VITALS: BP 142/78
[2021-07-19 20:00] VITALS: BP 138/77
[2021-07-19] MEDS: FAMOTIDINE 20MG TABLET PO SCH (20:54)
[2021-07-20] VITALS: BP 143/73
[2021-07-20 04:00] VITALS: BP 147/88
[2021-07-20] MEDS: FUROSEMIDE 40MG/4ML VIAL IVP SCH ×2 (05:32→18:23)
[2021-07-20 07:54] LABS: HEMATOCRIT. 30.4 % (42.0-52.0); HEMOGLOBIN. 10.4 g/dL (14.0-18.0); MEAN CORPUSCULAR HEMOGLOBIN 24.7 pg (28.0-32.0); MEAN CORPUSCULAR VOLUME 71.9 fL (80.0-94.0); MEAN PLATELET VOLUME 8.1 fl (7.4-10.4); PLATELET 333 x1000/uL (130-400); RED BLOOD CELL COUNT 4.22 mill/uL (4.7-6.1); RED CELL DISTRIBUTION WIDTH 15.5 % (11.6-14.6)
[2021-07-20 07:55] LABS: BASOPHILS % 0.4 % (0.0-2.0); EOSINOPHILS % 0.9 % (0.0-5.0); LYMPHOCYTES % 14.7 % (20.0-50.0); MONOCYTES % 10.3 % (2.0-8.0); NEUTROPHILS % 73.7 % (40.0-76.0)
[2021-07-20 08:00] VITALS: BP 134/83
[2021-07-20] MEDS: ENOXAPARIN 30MG/0.3ML SYR SUBCUT SCH ×2 (09:00→09:42)
[2021-07-20] MEDS: ASPIRIN 325MG EC TABLET PO SCH (09:42)
[2021-07-20] MEDS: AMLODIPINE 10MG TABLET PO SCH (09:43)
[2021-07-20 12:00] VITALS: BP 155/93
[2021-07-20 16:00] VITALS: BP 144/89
[2021-07-20 20:00] VITALS: BP 137/89
[2021-07-20] MEDS: FAMOTIDINE 20MG TABLET PO SCH (20:49)
[2021-07-21] VITALS: BP 107/45
[2021-07-21 04:00] VITALS: BP 152/87
[2021-07-21] MEDS: FUROSEMIDE 40MG/4ML VIAL IVP SCH ×2 (05:34→16:17)
[2021-07-21 07:24] LABS: HEMATOCRIT. 33.4 % (42.0-52.0); HEMOGLOBIN. 11.6 g/dL (14.0-18.0); MEAN CORPUSCULAR HEMOGLOBIN 24.7 pg (28.0-32.0); MEAN CORPUSCULAR VOLUME 71.1 fL (80.0-94.0); MEAN PLATELET VOLUME 7.8 fl (7.4-10.4); PLATELET 342 x1000/uL (130-400); RED CELL DISTRIBUTION WIDTH 15.5 % (11.6-14.6)
[2021-07-21 07:51] LABS: PHOSPHORUS 3.8 mg/dL (2.5-4.9)
[2021-07-21 08:00] VITALS: BP 142/100
[2021-07-21] MEDS: AMLODIPINE 10MG TABLET PO SCH (08:09)
[2021-07-21] MEDS: ENOXAPARIN 30MG/0.3ML SYR SUBCUT SCH ×2 (08:09→08:11)
[2021-07-21] MEDS: ASPIRIN 325MG EC TABLET PO SCH (08:09)
[2021-07-21 11:55] VITALS: BP 143/95
[2021-07-21 16:00] VITALS: BP 118/73
[2021-07-21 16:13] LABS: PLATELET ESTIMATE NORMAL
[2021-07-21 20:00] VITALS: BP 130/86
[2021-07-21] MEDS: FAMOTIDINE 20MG TABLET PO SCH (21:54)
[2021-07-22 04:00] VITALS: BP 147/85
[2021-07-22 05:33] LABS: PHOSPHORUS 5.1 mg/dL (2.5-4.9)
[2021-07-22 06:00] LABS: BASOPHILS % 0.3 % (0.0-2.0); EOSINOPHILS % 4.3 % (0.0-5.0); HEMATOCRIT. 36.1 % (42.0-52.0); HEMOGLOBIN. 12.2 g/dL (14.0-18.0); LYMPHOCYTES % 30.3 % (20.0-50.0); MEAN CORPUSCULAR HEMOGLOBIN 24.2 pg (28.0-32.0); MEAN CORPUSCULAR VOLUME 71.7 fL (80.0-94.0); MONOCYTES % 14.8 % (2.0-8.0); NEUTROPHILS % 50.3 % (40.0-76.0); PLATELET 373 x1000/uL (130-400); RED BLOOD CELL COUNT 5.04 mill/uL (4.7-6.1); RED CELL DISTRIBUTION WIDTH 15.7 % (11.6-14.6)
[2021-07-22] MEDS: FUROSEMIDE 40MG/4ML VIAL IVP SCH ×3 (06:27→10:20)
[2021-07-22 08:00] VITALS: BP 148/80
[2021-07-22] MEDS: ENOXAPARIN 30MG/0.3ML SYR SUBCUT SCH (09:00)
[2021-07-22] MEDS: AMLODIPINE 10MG TABLET PO SCH (10:15)
[2021-07-22] MEDS: ASPIRIN 325MG EC TABLET PO SCH (10:15)
[2021-07-22] MEDS: FAMOTIDINE 20MG TABLET PO SCH (10:15)
[2021-07-22 12:00] VITALS: BP 151/80
[2021-07-22 13:52] VITALS: BP 148/80
[2021-09-05] MEDS ORDERED: HYDR-4135 MT (12:05)
[2021-09-05] MEDS ORDERED: NIFE-32 MT (12:05)
[2021-09-05] MEDS ORDERED: ALBU18HF2 IH (12:05)
[2021-09-05] MEDS ORDERED: FLUT1DIS3 INH (12:05)
== END 2021-07-22 15:00 | disposition home or self-care (01) | DRG 194 ==
LOC: ER 06:23 → MICUSO 10:41 → EDBEDREQ 10:52 → 8WST 07-19 08:33
PROVIDERS: ADMIT Internal Medicine; ATTEND Internal Medicine
DX: I13.0 Hypertensive heart and chronic kidney disease with heart failure and stage 1 through stage 4 chronic kidney disease, or unspecified chronic kidney disease (principal); N17.9 Acute kidney failure, unspecified; E43 Unspecified severe protein-calorie malnutrition; E11.22 Type 2 diabetes mellitus with diabetic chronic kidney disease; E83.51 Hypocalcemia; D63.8 Anemia in other chronic diseases classified elsewhere; F14.10 Cocaine abuse, uncomplicated; F17.210 Nicotine dependence, cigarettes, uncomplicated; Z20.822 Contact with and (suspected) exposure to COVID-19; N28.1 Cyst of kidney, acquired; R94.6 Abnormal results of thyroid function studies; R79.89 Other specified abnormal findings of blood chemistry; N40.0 Benign prostatic hyperplasia without lower urinary tract symptoms; Z82.49 Family history of ischemic heart disease and other diseases of the circulatory system; Z86.16 Personal history of COVID-19; Z87.01 Personal history of pneumonia (recurrent); Z91.14 Patient's other noncompliance with medication regimen; Z79.82 Long term (current) use of aspirin; Z79.899 Other long term (current) drug therapy; Z68.25 Body mass index [BMI] 25.0-25.9, adult; I50.33 Acute on chronic diastolic (congestive) heart failure; N18.5 Chronic kidney disease, stage 5
CPT/HCPCS: 36415; 36600; 71045; 80048; 80053; 80305; 81003; 82375; 82550; 82553; 82607; 82746; 82805; 83540; 83550; 83735; 83880; 84100; 84145; 84439; 84443; 84484; 85025; 87426; 93005; 93306; 93970; 99285; J1650; J1940

== ENCOUNTER 2021-10-13 17:03 | Inpatient (IN) | payer OTHER ==
[~2021-10-13] VITALS: Ht 172.7 cm; Wt 76.2 kg
[~2021-10-13 17:03] MED LIST changes: -AMLO5TAB88 PO; -ASPI-986 MT; +FLUT1DIS3 INH; +NIFE-32 MT
[2021-10-13] MEDS ORDERED: NITROGLYCERIN OINT 1GM/INCH UDPKT TD ONE (17:45)
[2021-10-13] MEDS ORDERED: ASPIRIN 81MG TABLET PO ONE (17:45)
[2021-10-13 18:28] LABS: HEMATOCRIT. 30.7 % (42.0-52.0); MEAN CORPUSCULAR HEMOGLOBIN 23.6 pg (28.0-32.0); MEAN CORPUSCULAR VOLUME 72.3 fL (80.0-94.0); MEAN PLATELET VOLUME 8.8 fl (7.4-10.4); PLATELET 262 x1000/uL (130-400); RED BLOOD CELL COUNT 4.24 mill/uL (4.7-6.1); RED CELL DISTRIBUTION WIDTH 20.5 % (11.6-14.6)
[2021-10-13] MEDS ORDERED: FUROSEMIDE 40MG/4ML VIAL IVP NR (18:30)
[2021-10-13 18:34] LABS: CHLORIDE 117 mEq/L (98-107)
[2021-10-13 18:39] LABS: ETHANOL BLOOD < 10 mg/dL
[2021-10-13] MEDS ORDERED: ALBUTEROL (0.083%) 2.5MG/3ML NEB HHN NR (18:43)
[2021-10-13] MEDS ORDERED: SODIUM BICARBONATE 8.4% 1 MEQ/ML 50ML SYR IV NR (18:45)
[2021-10-13] MEDS ORDERED: INSULIN REGULAR (HUMULIN R) 300UNITS/3ML VIAL IV NR (18:45)
[2021-10-13] MEDS ORDERED: DEXTROSE 50% WATER 50ML SYRINGE IV NR (18:45)
[2021-10-13 18:55] LABS: CLARITY URINE CLEAR (CLEAR); COLOR URINE YELLOW (YELLOW); KETONES URINE NEGATIVE (NEGATIVE); LEUKOCYTE ESTERASE URINE NEGATIVE (NEGATIVE); NITRITE URINE NEGATIVE (NEGATIVE); OCCULT BLOOD URINE TRACE (NEGATIVE); PROTEIN URINE 3+ (NEGATIVE); SPECIFIC GRAVITY URINE 1.017 (1.005-1.030); UROBILINOGEN URINE 0.2 E.U./dL (0.2-1.0)
[2021-10-13 19:15] LABS: PLATELET ESTIMATE NORMAL
[2021-10-13 19:31] LABS: *AMPHETAMINES SCREEN URINE NEGATIVE (NEGATIVE); *BARBITURATES SCREEN URINE NEGATIVE (NEGATIVE); *BENZODIAZEPINES SCREEN URINE NEGATIVE (NEGATIVE); *COCAINE SCREEN URINE PRESUMTIVE POSITIVE (NEGATIVE); CANNABINOID URINE SCREEN NEGATIVE (NEGATIVE); METHADONE URINE SCREEN NEGATIVE (NEGATIVE); OPIATES URINE SCREEN NEGATIVE (NEGATIVE); PHENCYCLIDINE URINE SCREEN NEGATIVE (NEGATIVE)
[2021-10-13] MEDS ORDERED: HYDRALAZINE 20MG/ML VIAL IV PRN (23:07)
[2021-10-14] VITALS (7 sets, daily range): BP systolic 131–176; BP diastolic 51–128
[2021-10-14] MEDS: CLONIDINE 0.1MG TABLET PO PRN ×2 (00:02→08:50)
[2021-10-14] MEDS ORDERED: IPRATROPIUM/ALBUTEROL 0.5-3(2.5)MG/3ML NEB HHN PRN (01:45)
[2021-10-14] MEDS: FUROSEMIDE 40MG/4ML VIAL IVP SCH (10:45)
[2021-10-14] MEDS: NIFEDIPINE XL 60MG TAB PO SCH (11:50)
[2021-10-14] MEDS: HYDRALAZINE HCL 100MG TABLET PO SCH ×2 (13:03→21:10)
[2021-10-15] VITALS: BP_SYST 119; BP_SYST 132; BP_DIAS 59; BP_DIAS 85
[2021-10-15 04:00] VITALS: BP 146/106
[2021-10-15 08:00] VITALS: BP 150/97
[2021-10-15 08:31] LABS: BASOPHILS % 0.3 % (0.0-2.0); EOSINOPHILS % 1.9 % (0.0-5.0); HEMATOCRIT. 28.9 % (42.0-52.0); HEMOGLOBIN. 9.9 g/dL (14.0-18.0); LYMPHOCYTES % 23.3 % (20.0-50.0); MEAN CORPUSCULAR HEMOGLOBIN 24.8 pg (28.0-32.0); MEAN CORPUSCULAR VOLUME 72.2 fL (80.0-94.0); MEAN PLATELET VOLUME 8.6 fl (7.4-10.4); MONOCYTES % 12.6 % (2.0-8.0); NEUTROPHILS % 61.9 % (40.0-76.0); PLATELET 249 x1000/uL (130-400); RED CELL DISTRIBUTION WIDTH 20.2 % (11.6-14.6)
[2021-10-15] MEDS: FUROSEMIDE 40MG/4ML VIAL IVP SCH (09:19)
[2021-10-15] MEDS: NIFEDIPINE XL 60MG TAB PO SCH (09:20)
[2021-10-15] MEDS: HYDRALAZINE HCL 100MG TABLET PO SCH ×2 (09:20→20:41)
[2021-10-15 12:00] VITALS: BP 152/106
[2021-10-15 16:00] VITALS: BP 144/105
[2021-10-15] MEDS ORDERED: FUROSEMIDE 40MG/4ML VIAL IVP NR (16:15)
[2021-10-15 20:00] VITALS: BP 148/100
[2021-10-16] VITALS (7 sets, daily range): BP systolic 145–167; BP diastolic 89–117
[2021-10-16] MEDS: FUROSEMIDE 40MG/4ML VIAL IVP SCH (08:05)
[2021-10-16] MEDS: CLONIDINE 0.1MG TABLET PO PRN (08:05)
[2021-10-16] MEDS: NIFEDIPINE XL 60MG TAB PO SCH (08:05)
[2021-10-16] MEDS: HYDRALAZINE HCL 100MG TABLET PO SCH (08:06)
[2021-10-16] MEDS ORDERED: HYDR100T26 MT (08:08)
[2021-10-16] MEDS ORDERED: FURO-151 MT (08:08)
[2021-10-16] MEDS ORDERED: ALBU18HF2 IH (08:08)
[2021-10-16] MEDS ORDERED: FLUT1DIS3 INH (08:08)
[2021-10-16] MEDS ORDERED: CLONIDINE 0.1MG TABLET PO NR (08:08)
[2021-10-16] MEDS ORDERED: NIFE-32 MT (08:08)
[2021-10-16] MEDS ORDERED: HYDRALAZINE HCL 100MG TABLET PO SCH (14:00)
== END 2021-10-16 15:30 | disposition home or self-care (01) | DRG 194 ==
LOC: ER 17:03 → EDBEDREQTM 19:59 → EDBEDREQ 19:59 → 7WST 20:11 → EDBEDREQ 20:16 → EDBEDREQTM 20:16 → ENRESERV 21:32
PROVIDERS: ADMIT Internal Medicine; ATTEND Internal Medicine
DX: I13.2 Hypertensive heart and chronic kidney disease with heart failure and with stage 5 chronic kidney disease, or end stage renal disease (principal); N17.0 Acute kidney failure with tubular necrosis; E43 Unspecified severe protein-calorie malnutrition; E87.8 Other disorders of electrolyte and fluid balance, not elsewhere classified; E87.5 Hyperkalemia; I16.0 Hypertensive urgency; I50.33 Acute on chronic diastolic (congestive) heart failure; J44.9 Chronic obstructive pulmonary disease, unspecified; Z91.19 Patient's noncompliance with other medical treatment and regimen; Z68.25 Body mass index [BMI] 25.0-25.9, adult; F14.90 Cocaine use, unspecified, uncomplicated; R07.9 Chest pain, unspecified; D64.9 Anemia, unspecified; Z71.51 Drug abuse counseling and surveillance of drug abuser
CPT/HCPCS: 36415; 71045; 80048; 80053; 80305; 80320; 81003; 83605; 83880; 84145; 84484; 85025; 93005; 94640; 99291; J0360; J1815; J1940; J3490; G0480

== ENCOUNTER 2021-12-30 05:33 | Emergency (ER) | payer OTHER ==
[~2021-12-30] VITALS: Ht 170.2 cm; Wt 81.6 kg
[~2021-12-30 05:33] MED LIST changes: +FURO-151 MT; -HYDR-4135 MT; +HYDR100T26 MT
[2021-12-30] MEDS ORDERED: IPRATROPIUM/ALBUTEROL 0.5-3(2.5)MG/3ML NEB HHN ONE (06:15)
[2021-12-30] MEDS ORDERED: FUROSEMIDE 40MG/4ML VIAL IVP ONE (06:15)
[2021-12-30] MEDS ORDERED: ASPIRIN 81MG TABLET PO ONE (06:15)
[2021-12-30] MEDS ORDERED: HYDRALAZINE 20MG/ML VIAL IV ONE (06:15)
[2021-12-30 06:20] LABS: BASOPHILS % 0.5 % (0.0-2.0); EOSINOPHILS % 4.2 % (0.0-5.0); HEMATOCRIT. 35.7 % (42.0-52.0); HEMOGLOBIN. 11.5 g/dL (14.0-18.0); LYMPHOCYTES % 21.6 % (20.0-50.0); MEAN CORPUSCULAR HEMOGLOBIN 23.8 pg (28.0-32.0); MEAN CORPUSCULAR VOLUME 73.6 fL (80.0-94.0); MEAN PLATELET VOLUME 7.8 fl (7.4-10.4); MONOCYTES % 14.4 % (2.0-8.0); NEUTROPHILS % 59.3 % (40.0-76.0); PLATELET 352 x1000/uL (130-400); RED BLOOD CELL COUNT 4.84 mill/uL (4.7-6.1); RED CELL DISTRIBUTION WIDTH 18.8 % (11.6-14.6)
[2021-12-30 06:30] LABS: CHLORIDE 117 mEq/L (98-107)
[2021-12-30 07:07] LABS: PROTHROMBIN TIME 10.9 sec (9.6-11.0)
[2021-12-30] MEDS ORDERED: INSULIN REGULAR (HUMULIN R) 300UNITS/3ML VIAL IV ONE (08:30)
[2021-12-30] MEDS ORDERED: DEXTROSE 50% WATER 50ML SYRINGE IV ONE ×2 (08:30→14:45)
[2021-12-30] MEDS ORDERED: INSULIN REGULAR (HUMULIN R) 300UNITS/3ML VIAL IV SCH (10:15)
[2021-12-30] MEDS: DEXTROSE 50% WATER 50ML SYRINGE IV SCH ×2 (10:48→11:00)
[2021-12-30] MEDS ORDERED: ACETAMINOPHEN 325MG TABLET PO ONE (11:45)
[2021-12-30] MEDS ORDERED: LABETALOL 5MG/ML SYR 20 MG/4 ML SYRINGE IV NR (15:00)
[2021-12-30 15:12] VITALS: BP 160/100
== END 2021-12-30 14:58 | disposition short-term general hospital (02) ==
LOC: ER 05:33
DX: I21.4 Non-ST elevation (NSTEMI) myocardial infarction (principal); N17.9 Acute kidney failure, unspecified; I13.0 Hypertensive heart and chronic kidney disease with heart failure and stage 1 through stage 4 chronic kidney disease, or unspecified chronic kidney disease; N18.9 Chronic kidney disease, unspecified; I50.9 Heart failure, unspecified; J44.9 Chronic obstructive pulmonary disease, unspecified; F14.10 Cocaine abuse, uncomplicated; Z20.822 Contact with and (suspected) exposure to COVID-19; Z91.14 Patient's other noncompliance with medication regimen
CPT/HCPCS: 36415; 71045; 80048; 80053; 82962; 83880; 84484; 85025; 85610; 87426; 93005; 94640; 94664; 96374; 96375; 96376; 99285; C9803; J0360; J1815; J1940; J3490; Z7610

== ENCOUNTER 2022-02-05 02:31 | Inpatient (IN) | payer OTHER ==
[~2022-02-05] VITALS: Ht 175.3 cm; Wt 74.8 kg
[~2022-02-05 02:31] MED LIST changes: +AMLO10TA80 PO; +CLON0.1T PO; -NIFE-32 MT
[2022-02-05] MEDS ORDERED: CEFTRIAXONE 1 G PREMIX 50 ML IV ONE (03:15)
[2022-02-05] MEDS ORDERED: AZITHROMYCIN 500MG/250ML 250 ML IV ONE (03:15)
[2022-02-05] MEDS ORDERED: SODIUM CHLORIDE 0.9% 1,000 ML IV ONE (03:15)
[2022-02-05] MEDS ORDERED: FUROSEMIDE 40MG/4ML VIAL IVP ONE (04:30)
[2022-02-05 04:37] LABS: BASOPHILS % 0.6 % (0.0-2.0); EOSINOPHILS % 1.7 % (0.0-5.0); HEMATOCRIT. 31.8 % (42.0-52.0); HEMOGLOBIN. 10.4 g/dL (14.0-18.0); LYMPHOCYTES % 25.4 % (20.0-50.0); MEAN CORPUSCULAR HEMOGLOBIN 23.1 pg (28.0-32.0); MEAN CORPUSCULAR VOLUME 70.6 fL (80.0-94.0); MEAN PLATELET VOLUME 8.1 fl (7.4-10.4); MONOCYTES % 13.5 % (2.0-8.0); NEUTROPHILS % 58.8 % (40.0-76.0); PLATELET 277 x1000/uL (130-400); RED BLOOD CELL COUNT 4.51 mill/uL (4.7-6.1); RED CELL DISTRIBUTION WIDTH 18.7 % (11.6-14.6)
[2022-02-05 04:45] LABS: CHLORIDE 108 mEq/L (98-107)
[2022-02-05] MEDS ORDERED: FUROSEMIDE 40MG/4ML VIAL IVP SCH (06:45)
[2022-02-05] MEDS ORDERED: AZITHROMYCIN 500MG/250ML 250 ML IV SCH (06:45)
[2022-02-05] MEDS ORDERED: CEFTRIAXONE 1 G PREMIX 50 ML IV SCH (06:45)
[2022-02-05] MEDS ORDERED: ACETAMINOPHEN 325MG TABLET PO PRN (10:00)
[2022-02-05] MEDS ORDERED: ONDANSETRON HCL 4MG/2ML INJ IV PRN (10:00)
[2022-02-05] MEDS ORDERED: FUROSEMIDE 40MG/4ML VIAL IVP NR (10:00)
[2022-02-05] MEDS: AMLODIPINE 10MG TABLET PO SCH (10:17)
[2022-02-05 20:00] VITALS: BP 151/101
[2022-02-05 20:20] VITALS: BP 129/90
[2022-02-06] VITALS: BP 146/116
[2022-02-06 08:00] VITALS: BP 158/118
[2022-02-06] MEDS: FUROSEMIDE 40MG/4ML VIAL IVP SCH ×2 (09:00→17:03)
[2022-02-06] MEDS: AMLODIPINE 10MG TABLET PO SCH (09:00)
[2022-02-06 12:00] VITALS: BP 147/115
[2022-02-06] MEDS: METHYLPREDNISOLONE SOD SUCC 40 MG/ML VIAL IV SCH ×2 (13:42→21:39)
[2022-02-06] MEDS: IPRATROPIUM/ALBUTEROL 0.5-3(2.5)MG/3ML NEB HHN SCH ×2 (14:08→20:00)
[2022-02-06 16:00] VITALS: BP 145/100
[2022-02-06 20:00] VITALS: BP 186/125
[2022-02-06] MEDS: HYDRALAZINE HCL 50MG TABLET PO SCH (21:39)
[2022-02-06] MEDS ORDERED: *PATIENT'S OWN MEDICATION STORAGE XX SCH (23:00)
[2022-02-06 23:06] LABS: *AMPHETAMINES SCREEN URINE NEGATIVE (NEGATIVE); *BARBITURATES SCREEN URINE NEGATIVE (NEGATIVE); *BENZODIAZEPINES SCREEN URINE NEGATIVE (NEGATIVE); *COCAINE SCREEN URINE NEGATIVE (NEGATIVE); CANNABINOID URINE SCREEN NEGATIVE (NEGATIVE); METHADONE URINE SCREEN NEGATIVE (NEGATIVE); OPIATES URINE SCREEN NEGATIVE (NEGATIVE); PHENCYCLIDINE URINE SCREEN NEGATIVE (NEGATIVE)
[2022-02-07] VITALS (7 sets, daily range): BP systolic 160–173; BP diastolic 89–104
[2022-02-07] MEDS: IPRATROPIUM/ALBUTEROL 0.5-3(2.5)MG/3ML NEB HHN SCH ×4 (01:07→20:36)
[2022-02-07] MEDS: METHYLPREDNISOLONE SOD SUCC 40 MG/ML VIAL IV SCH ×3 (06:01→21:34)
[2022-02-07] MEDS: AMLODIPINE 10MG TABLET PO SCH (06:01)
[2022-02-07] MEDS: HYDRALAZINE HCL 50MG TABLET PO SCH (09:39)
[2022-02-07] MEDS: HYDRALAZINE HCL 100MG TABLET PO SCH (21:34)
[2022-02-08 00:30] VITALS: BP 166/108
[2022-02-08] MEDS ORDERED: HYDRALAZINE HCL 50MG TABLET PO SCH (01:00)
[2022-02-08] MEDS: IPRATROPIUM/ALBUTEROL 0.5-3(2.5)MG/3ML NEB HHN SCH (01:15)
[2022-02-08 03:48] VITALS: BP 155/95
[2022-02-08 04:19] VITALS: BP 159/87
[2022-02-08] MEDS: METHYLPREDNISOLONE SOD SUCC 40 MG/ML VIAL IV SCH ×2 (05:17→13:34)
[2022-02-08] MEDS: HYDRALAZINE HCL 100MG TABLET PO SCH ×2 (05:17→13:34)
[2022-02-08 08:00] VITALS: BP 161/209
[2022-02-08] MEDS: AMLODIPINE 10MG TABLET PO SCH (08:45)
[2022-02-08 12:00] VITALS: BP 162/107
[2022-02-08] MEDS ORDERED: HYDR100T26 MT (13:56)
[2022-02-08] MEDS ORDERED: FLUT1DIS3 INH (13:56)
[2022-02-08] MEDS ORDERED: ALBU18HF2 IH (13:56)
[2022-02-08] MEDS ORDERED: TAMS-11 MT (13:56)
[2022-02-08] MEDS ORDERED: CLON0.1T PO (13:56)
[2022-02-08] MEDS ORDERED: AMLO10TA80 PO (13:56)
[2022-02-08 16:00] VITALS: BP 154/89
== END 2022-02-08 15:55 | disposition home or self-care (01) | DRG 194 ==
LOC: ER 02:34 → MICUSO 05:27 → 7EST 18:40 → 7WST 02-06 11:58
PROVIDERS: ADMIT Internal Medicine; ATTEND Internal Medicine
DX: I13.0 Hypertensive heart and chronic kidney disease with heart failure and stage 1 through stage 4 chronic kidney disease, or unspecified chronic kidney disease (principal); N17.9 Acute kidney failure, unspecified; J44.1 Chronic obstructive pulmonary disease with (acute) exacerbation; I50.33 Acute on chronic diastolic (congestive) heart failure; I34.0 Nonrheumatic mitral (valve) insufficiency; Z20.822 Contact with and (suspected) exposure to COVID-19; N18.9 Chronic kidney disease, unspecified; Z28.310 Unvaccinated for COVID-19; Z79.899 Other long term (current) drug therapy; Z82.49 Family history of ischemic heart disease and other diseases of the circulatory system; F14.11 Cocaine abuse, in remission
CPT/HCPCS: 36415; 71045; 78580; 80048; 80053; 80305; 83605; 83880; 84484; 85025; 85379; 87426; 87804; 93005; 94640; 99285; C9803; J0456; J0696; J1940; J2920; J7030

== ENCOUNTER 2022-04-20 18:47 | Inpatient (IN) | payer OTHER ==
[~2022-04-20] VITALS: Ht 172.7 cm; Wt 83.9 kg
[2022-04-20] MEDS ORDERED: FUROSEMIDE 40MG/4ML VIAL IVP ONE ×2 (21:15→23:30)
[2022-04-20 21:59] LABS: HEMOGLOBIN. 10.2 g/dL (14.0-18.0); MEAN CORPUSCULAR HEMOGLOBIN 23.8 pg (28.0-32.0); MEAN CORPUSCULAR VOLUME 72.3 fL (80.0-94.0); PLATELET 275 x1000/uL (130-400); RED BLOOD CELL COUNT 4.29 mill/uL (4.7-6.1); RED CELL DISTRIBUTION WIDTH 20.6 % (11.6-14.6)
[2022-04-20 22:30] LABS: PLATELET ESTIMATE NORMAL
[2022-04-20 22:38] LABS: CHLORIDE 114 mEq/L (98-107)
[2022-04-20] MEDS ORDERED: NITROGLYCERIN 0.4MG TABLET SL SL ONE (23:30)
[2022-04-21] VITALS (7 sets, daily range): BP systolic 142–182; BP diastolic 78–130
[2022-04-21] MEDS ORDERED: ACETAMINOPHEN 325MG TABLET PO PRN (02:30)
[2022-04-21] MEDS ORDERED: ONDANSETRON HCL 4MG/2ML INJ IV PRN (02:30)
[2022-04-21] MEDS ORDERED: CLONIDINE 0.1MG TABLET PO PRN (02:30)
[2022-04-21] MEDS: ALBUTEROL (0.083%) 2.5MG/3ML NEB HHN SCH ×5 (04:18→20:13)
[2022-04-21] MEDS ORDERED: HYDRALAZINE HCL 100MG TABLET PO SCH (06:00)
[2022-04-21] MEDS ORDERED: FUROSEMIDE 40MG/4 ML UDC PO SCH (09:00)
[2022-04-21] MEDS: AMLODIPINE 10MG TABLET PO SCH (10:10)
[2022-04-21] MEDS: FUROSEMIDE 40MG/4 ML UDC PO SCH ×2 (10:29→21:26)
[2022-04-21 13:13] LABS: HEMATOCRIT. 33.4 % (42.0-52.0); HEMOGLOBIN. 10.9 g/dL (14.0-18.0); MEAN CORPUSCULAR HEMOGLOBIN 23.6 pg (28.0-32.0); MEAN CORPUSCULAR VOLUME 72.8 fL (80.0-94.0); MEAN PLATELET VOLUME 8.5 fl (7.4-10.4); PLATELET 273 x1000/uL (130-400); RED BLOOD CELL COUNT 4.59 mill/uL (4.7-6.1)
[2022-04-21 14:11] LABS: PLATELET ESTIMATE NORMAL
[2022-04-21] MEDS: HYDRALAZINE HCL 50MG TABLET PO SCH ×2 (14:29→21:26)
[2022-04-21] MEDS: TAMSULOSIN HCL 0.4MG SR CAPSULE PO SCH (21:24)
[2022-04-21 23:38] LABS: CLARITY URINE CLEAR (CLEAR); COLOR URINE YELLOW (YELLOW); KETONES URINE NEGATIVE (NEGATIVE); LEUKOCYTE ESTERASE URINE TRACE (NEGATIVE); NITRITE URINE NEGATIVE (NEGATIVE); OCCULT BLOOD URINE NEGATIVE (NEGATIVE); PROTEIN URINE 1+ (NEGATIVE); SPECIFIC GRAVITY URINE 1.008 (1.005-1.030); UROBILINOGEN URINE 0.2 E.U./dL (0.2-1.0)
[2022-04-22 00:02] VITALS: BP 149/90
[2022-04-22 00:03] LABS: *AMPHETAMINES SCREEN URINE NEGATIVE (NEGATIVE); *BARBITURATES SCREEN URINE NEGATIVE (NEGATIVE); *BENZODIAZEPINES SCREEN URINE NEGATIVE (NEGATIVE); *COCAINE SCREEN URINE PRESUMTIVE POSITIVE (NEGATIVE); CANNABINOID URINE SCREEN NEGATIVE (NEGATIVE); METHADONE URINE SCREEN NEGATIVE (NEGATIVE); OPIATES URINE SCREEN NEGATIVE (NEGATIVE); PHENCYCLIDINE URINE SCREEN NEGATIVE (NEGATIVE)
[2022-04-22] MEDS: ALBUTEROL (0.083%) 2.5MG/3ML NEB HHN SCH ×3 (00:17→08:56)
[2022-04-22 04:03] VITALS: BP 173/109
[2022-04-22] MEDS: HYDRALAZINE HCL 50MG TABLET PO SCH ×3 (04:58→22:01)
[2022-04-22 08:00] VITALS: BP 156/99
[2022-04-22] MEDS: FUROSEMIDE 40MG/4 ML UDC PO SCH ×2 (08:30→22:02)
[2022-04-22] MEDS: AMLODIPINE 10MG TABLET PO SCH (08:31)
[2022-04-22] MEDS ORDERED: METOPROLOL TARTRATE 50MG TABLET PO SCH (09:00)
[2022-04-22 11:40] LABS: BASOPHILS % 0.4 % (0.0-2.0); EOSINOPHILS % 0.8 % (0.0-5.0); HEMATOCRIT. 30.8 % (42.0-52.0); HEMOGLOBIN. 10.2 g/dL (14.0-18.0); LYMPHOCYTES % 12.7 % (20.0-50.0); MEAN CORPUSCULAR HEMOGLOBIN 23.7 pg (28.0-32.0); MEAN CORPUSCULAR VOLUME 71.3 fL (80.0-94.0); MEAN PLATELET VOLUME 8.3 fl (7.4-10.4); NEUTROPHILS % 72.1 % (40.0-76.0); PLATELET 250 x1000/uL (130-400); RED BLOOD CELL COUNT 4.32 mill/uL (4.7-6.1); RED CELL DISTRIBUTION WIDTH 20.4 % (11.6-14.6)
[2022-04-22 12:00] VITALS: BP 140/84
[2022-04-22] MEDS: CARVEDILOL 3.125 MG TABLET PO SCH ×2 (14:06→22:00)
[2022-04-22] MEDS ORDERED: MAGNESIUM 2 G PREMIX 50 ML IV SCH (15:00)
[2022-04-22 16:00] VITALS: BP 130/94
[2022-04-22 20:00] VITALS: BP 136/88
[2022-04-22] MEDS: TAMSULOSIN HCL 0.4MG SR CAPSULE PO SCH (21:59)
[2022-04-23] VITALS: BP 125/75
[2022-04-23 04:00] VITALS: BP 133/91
[2022-04-23] MEDS: HYDRALAZINE HCL 50MG TABLET PO SCH ×3 (06:38→21:49)
[2022-04-23 08:00] VITALS: BP_SYST 129; BP_SYST 132; BP_DIAS 75; BP_DIAS 79
[2022-04-23 08:24] LABS: HEMATOCRIT. 29.4 % (42.0-52.0); HEMOGLOBIN. 9.8 g/dL (14.0-18.0); MEAN CORPUSCULAR HEMOGLOBIN 23.4 pg (28.0-32.0); MEAN CORPUSCULAR VOLUME 70.6 fL (80.0-94.0); MEAN PLATELET VOLUME 7.7 fl (7.4-10.4); PLATELET 255 x1000/uL (130-400); RED BLOOD CELL COUNT 4.17 mill/uL (4.7-6.1); RED CELL DISTRIBUTION WIDTH 20.1 % (11.6-14.6)
[2022-04-23] MEDS: FUROSEMIDE 40MG/4 ML UDC PO SCH ×2 (09:05→21:48)
[2022-04-23] MEDS: CARVEDILOL 3.125 MG TABLET PO SCH ×2 (09:05→21:48)
[2022-04-23] MEDS: AMLODIPINE 10MG TABLET PO SCH (09:05)
[2022-04-23 12:00] VITALS: BP 132/96
[2022-04-23] MEDS: SODIUM BICARBONATE 650 MG TABLET PO SCH (13:07)
[2022-04-23 16:00] VITALS: BP 143/87
[2022-04-23 16:54] LABS: PLATELET ESTIMATE NORMAL
[2022-04-23 20:00] VITALS: BP 140/90
[2022-04-23] MEDS: TAMSULOSIN HCL 0.4MG SR CAPSULE PO SCH (21:48)
[2022-04-24] VITALS: BP 136/88
[2022-04-24 04:10] VITALS: BP 131/85
[2022-04-24] MEDS: HYDRALAZINE HCL 50MG TABLET PO SCH ×2 (05:45→13:15)
[2022-04-24 07:42] LABS: HEMATOCRIT. 30.8 % (42.0-52.0); HEMOGLOBIN. 10.4 g/dL (14.0-18.0); MEAN PLATELET VOLUME 8.2 fl (7.4-10.4); PLATELET 267 x1000/uL (130-400); RED BLOOD CELL COUNT 4.33 mill/uL (4.7-6.1); RED CELL DISTRIBUTION WIDTH 20.4 % (11.6-14.6)
[2022-04-24 08:00] VITALS: BP 164/92
[2022-04-24] MEDS: SODIUM BICARBONATE 650 MG TABLET PO SCH (08:09)
[2022-04-24] MEDS: FUROSEMIDE 40MG/4 ML UDC PO SCH (08:10)
[2022-04-24] MEDS: AMLODIPINE 10MG TABLET PO SCH (08:10)
[2022-04-24] MEDS: CARVEDILOL 3.125 MG TABLET PO SCH (08:10)
[2022-04-24] MEDS ORDERED: MAGNESIUM 2 G PREMIX 50 ML IV ONE (09:30)
[2022-04-24 09:57] LABS: PLATELET ESTIMATE NORMAL
[2022-04-24 12:00] VITALS: BP 133/91
[2022-04-24] MEDS ORDERED: HYDR-4135 PO (13:36)
[2022-04-24] MEDS ORDERED: COR3 PO (13:36)
[2022-04-24] MEDS ORDERED: SODI650T PO (13:36)
[2022-04-24] MEDS ORDERED: FURO40SO4 PO (13:36)
[2022-04-24 15:01] VITALS: BP 133/91
== END 2022-04-24 16:00 | disposition home or self-care (01) | DRG 816 ==
LOC: ER 18:47 → MICUSO 23:22 → EDBEDREQ 23:26 → EDBEDREQTM 23:26 → 6WST 04-21 01:35
PROVIDERS: ADMIT Internal Medicine; ATTEND Internal Medicine
DX: T40.5X1A Poisoning by cocaine, accidental (unintentional), initial encounter (principal); J96.01 Acute respiratory failure with hypoxia; I50.43 Acute on chronic combined systolic (congestive) and diastolic (congestive) heart failure; N17.9 Acute kidney failure, unspecified; E44.0 Moderate protein-calorie malnutrition; I31.39 Other pericardial effusion (noninflammatory); D63.8 Anemia in other chronic diseases classified elsewhere; I27.21 Secondary pulmonary arterial hypertension; I24.9 Acute ischemic heart disease, unspecified; I42.0 Dilated cardiomyopathy; J68.0 Bronchitis and pneumonitis due to chemicals, gases, fumes and vapors; F14.10 Cocaine abuse, uncomplicated; D50.9 Iron deficiency anemia, unspecified; I13.2 Hypertensive heart and chronic kidney disease with heart failure and with stage 5 chronic kidney disease, or end stage renal disease; N18.5 Chronic kidney disease, stage 5; I08.1 Rheumatic disorders of both mitral and tricuspid valves; Z60.2 Problems related to living alone; E83.42 Hypomagnesemia; E78.00 Pure hypercholesterolemia, unspecified; I45.10 Unspecified right bundle-branch block; N28.1 Cyst of kidney, acquired; N40.0 Benign prostatic hyperplasia without lower urinary tract symptoms; Z79.899 Other long term (current) drug therapy; Z82.49 Family history of ischemic heart disease and other diseases of the circulatory system; Z86.16 Personal history of COVID-19; Z91.15 Patient's noncompliance with renal dialysis; Z91.199 Patient's noncompliance with other medical treatment and regimen due to unspecified reason; Z87.01 Personal history of pneumonia (recurrent); Y92.89 Other specified places as the place of occurrence of the external cause; Z71.51 Drug abuse counseling and surveillance of drug abuser; Z68.28 Body mass index [BMI] 28.0-28.9, adult
CPT/HCPCS: 36415; 71045; 76770; 80048; 80053; 80061; 80305; 81003; 83735; 83880; 84100; 84484; 85025; 93005; 93306; 94640; 99291; J1940; J3475

== ENCOUNTER 2022-07-12 20:23 | Inpatient (IN) | payer OTHER ==
[~2022-07-12] VITALS: Ht 172.7 cm; Wt 93.4 kg
[~2022-07-12 20:23] MED LIST changes: -CLON0.1T PO; +COR3 PO; -FURO-151 MT; +FURO40SO4 PO; +HYDR-4135 PO; -HYDR100T26 MT; +SODI650T PO
[2022-07-12] MEDS ORDERED: NALOXONE HCL 0.4 MG/ML 1ML VIAL ONE (20:49)
[2022-07-12] MEDS ORDERED: IPRATROPIUM BROMIDE (0.02%) 0.5MG/2.5ML NEB HHN STA (20:53)
[2022-07-12] MEDS ORDERED: ALBUTEROL (0.083%) 2.5MG/3ML NEB HHN STA (20:53)
[2022-07-12] MEDS ORDERED: NALOXONE HCL 1 MG/ML 2ML VIAL IV ONE (21:00)
[2022-07-12] MEDS ORDERED: FUROSEMIDE 40MG/4ML VIAL IV ONE (21:00)
[2022-07-12 21:26] LABS: BG BASE EXCESS -16.6 mmol/L (-2.0-2.0); BG CARBOXYHEMOGLOBIN 1.2 % (0.5-1.5); BG FRACTION INSPIRED OXYGEN 100; BG METHEMOGLOBIN 0.1 % (0.0-1.5); BG OXYGEN SATURATION 70.6 % (92.0-98.5); BG OXYHEMOGLOBIN 69.7 % (94.0-97.0); BG PCO2 148.7 mmHg (35.0-45.0); BG PH 6.767 (7.350-7.450); BG PO2 53.2 mmHg (75.0-100.0); BG SAMPLE SITE LEFT RADIAL; BG TOTAL HEMOGLOBIN 12.7 g/dL (12.0-18.0); BG VENT MODE MASK - NRB
[2022-07-12 21:39] LABS: BASOPHILS % 0.8 % (0.0-2.0); EOSINOPHILS % 0.3 % (0.0-5.0); HEMATOCRIT. 38.4 % (42.0-52.0); LYMPHOCYTES % 16.2 % (20.0-50.0); MEAN CORPUSCULAR HEMOGLOBIN 22.7 pg (28.0-32.0); MEAN CORPUSCULAR VOLUME 73.1 fL (80.0-94.0); MEAN PLATELET VOLUME 7.1 fl (7.4-10.4); MONOCYTES % 10.8 % (2.0-8.0); NEUTROPHILS % 71.9 % (40.0-76.0); PLATELET 378 x1000/uL (130-400); RED BLOOD CELL COUNT 5.26 mill/uL (4.7-6.1); RED CELL DISTRIBUTION WIDTH 19.2 % (11.6-14.6)
[2022-07-12 21:44] LABS: CHLORIDE 114 mEq/L (98-107)
[2022-07-12] MEDS ORDERED: PROPOFOL 10MG/ML 100ML 100 ML IV ONE (21:45)
[2022-07-12] MEDS ORDERED: METHYLPREDNISOLONE SOD SUCC 125 MG/2 ML VIAL IV ONE (21:45)
[2022-07-12] MEDS ORDERED: FENTANYL CITRATE/PF 50MCG/ML 2ML VIAL IV ONE (21:45)
[2022-07-12 22:02] LABS: ETHANOL BLOOD < 10 mg/dL
[2022-07-12] MEDS ORDERED: DEXTROSE 50% WATER 50ML SYRINGE IV NR (22:30)
[2022-07-12] MEDS ORDERED: SODIUM BICARBONATE 8.4% 1 MEQ/ML 50ML SYR IV NR (22:30)
[2022-07-12] MEDS ORDERED: CALCIUM GLUCONATE 100MG/ML 10ML VIAL IV NR (22:30)
[2022-07-12] MEDS ORDERED: INSULIN REGULAR (HUMULIN R) 300UNITS/3ML VIAL IV NR (22:30)
[2022-07-12] MEDS ORDERED: ALBUTEROL (0.083%) 2.5MG/3ML NEB HHN NR (22:30)
[2022-07-12 22:35] LABS: INR 1.1; PROTHROMBIN TIME 11.5 sec (9.6-11.0)
[2022-07-12 22:56] LABS: BG BASE EXCESS -15.9 mmol/L (-2.0-2.0); BG CARBOXYHEMOGLOBIN 0.1 % (0.5-1.5); BG DEOXYHEMOGLOBIN 3.9 % (0.0-5.0); BG FRACTION INSPIRED OXYGEN 100; BG HCO3 ACT 15.8 mmol/L (22.0-26.0); BG METHEMOGLOBIN 0.9 % (0.0-1.5); BG OXYGEN SATURATION 96.1 % (92.0-98.5); BG OXYHEMOGLOBIN 95.1 % (94.0-97.0); BG PCO2 66.3 mmHg (35.0-45.0); BG PH 6.995 (7.350-7.450); BG PO2 106.3 mmHg (75.0-100.0); BG SAMPLE SITE LEFT BRACHIAL; BG TOTAL HEMOGLOBIN 12.2 g/dL (12.0-18.0); BG VENT MODE VENT - AC
[2022-07-12] MEDS ORDERED: VANCOMYCIN 1G PREMIX 200 ML IV NR (23:00)
[2022-07-12] MEDS ORDERED: PIPERACILLIN/TAZ 3.375G PREMIX 50 ML IV NR (23:00)
[2022-07-12] MEDS ORDERED: PIPERACILLIN/TAZOBACTAM 3.375GM/50ML PREMIX IV ONE (23:00)
[2022-07-13] VITALS (41 sets, daily range): BP systolic 98–139; BP diastolic 61–96
[2022-07-13] MEDS ORDERED: FENTANYL 2500MCG/250ML PMX 250 ML IV ONE ×3 (00:30→16:00)
[2022-07-13] MEDS ORDERED: FENTANYL CITRATE 2,500 MCG in SODIUM CHLORIDE 0.9% 200 ML IV NR (00:45)
[2022-07-13] MEDS ORDERED: SODIUM BICARBONATE 8.4% 1 MEQ/ML 50ML SYR IV NR (01:00)
[2022-07-13 01:02] LABS: *AMPHETAMINES SCREEN URINE NEGATIVE (NEGATIVE); *BARBITURATES SCREEN URINE NEGATIVE (NEGATIVE); *BENZODIAZEPINES SCREEN URINE NEGATIVE (NEGATIVE); *COCAINE SCREEN URINE PRESUMTIVE POSITIVE (NEGATIVE); CANNABINOID URINE SCREEN NEGATIVE (NEGATIVE); METHADONE URINE SCREEN NEGATIVE (NEGATIVE); OPIATES URINE SCREEN NEGATIVE (NEGATIVE); PHENCYCLIDINE URINE SCREEN NEGATIVE (NEGATIVE)
[2022-07-13 02:13] LABS: BG BASE EXCESS -9.6 mmol/L (-2.0-2.0); BG CARBOXYHEMOGLOBIN 0.2 % (0.5-1.5); BG DEOXYHEMOGLOBIN 1.3 % (0.0-5.0); BG FRACTION INSPIRED OXYGEN 100; BG HCO3 ACT 15.2 mmol/L (22.0-26.0); BG METHEMOGLOBIN 0.3 % (0.0-1.5); BG OXYGEN SATURATION 98.7 % (92.0-98.5); BG OXYHEMOGLOBIN 98.2 % (94.0-97.0); BG PCO2 29.6 mmHg (35.0-45.0); BG PH 7.329 (7.350-7.450); BG PO2 268.7 mmHg (75.0-100.0); BG SAMPLE SITE RIGHT RADIAL; BG VENT MODE VENT - AC
[2022-07-13] MEDS ORDERED: SODIUM BICARBONATE 100 MEQ in SODIUM CHLORIDE 0.45% 1,000 ML IV SCH (02:15)
[2022-07-13] MEDS ORDERED: CALCIUM GLUCONATE 100MG/ML 10ML VIAL IV ONE (02:15)
[2022-07-13] MEDS ORDERED: INSULIN REGULAR (HUMULIN R) 300UNITS/3ML VIAL IV ONE (02:15)
[2022-07-13] MEDS ORDERED: DEXTROSE 50% WATER 50ML SYRINGE IV ONE (02:15)
[2022-07-13] MEDS ORDERED: SODIUM POLYSTYRENE SULFONATE 15 G/60 ML BOT PO NR (02:45)
[2022-07-13 04:55] LABS: HEMATOCRIT. 27.5 % (42.0-52.0); HEMOGLOBIN. 8.6 g/dL (14.0-18.0); MEAN CORPUSCULAR HEMOGLOBIN 22.8 pg (28.0-32.0); MEAN PLATELET VOLUME 6.9 fl (7.4-10.4); PLATELET 204 x1000/uL (130-400); RED BLOOD CELL COUNT 3.76 mill/uL (4.7-6.1); RED CELL DISTRIBUTION WIDTH 18.8 % (11.6-14.6)
[2022-07-13 05:16] LABS: CHLORIDE 118 mEq/L (98-107); INR 1.1; PROTHROMBIN TIME 11.7 sec (9.6-11.0)
[2022-07-13 05:42] LABS: HEPATITIS B SURFACE ANTIGEN NEGATIVE
[2022-07-13] MEDS: PROPOFOL 10MG/ML 100ML 100 ML IV PRN ×2 (05:46→07:46)
[2022-07-13] MEDS ORDERED: SODIUM POLYSTYRENE SULFONATE 15 G/60 ML BOT PR NR (06:00)
[2022-07-13] MEDS ORDERED: LIDOCAINE HCL 1% 10 MG/ML 10ML VIAL ONE (08:23)
[2022-07-13] MEDS ORDERED: ONDANSETRON HCL 4MG/2ML INJ IV PRN (08:45)
[2022-07-13] MEDS: PANTOPRAZOLE SODIUM 40 MG/VIAL IV SCH (09:00)
[2022-07-13 09:28] LABS: NUCLEATED RED BLOOD CELLS 3 /100 WBC; PLATELET ESTIMATE NORMAL
[2022-07-13] MEDS ORDERED: PIPERACILLIN/TAZOBACTAM 3.375 G in DEXTROSE 5% WATER 50 ML IV SCH (10:00)
[2022-07-13] MEDS ORDERED: IPRATROPIUM/ALBUTEROL 0.5-3(2.5)MG/3ML NEB HHN PRN (11:30)
[2022-07-13] MEDS ORDERED: ALBUTEROL (0.083%) 2.5MG/3ML NEB HHN PRN (11:45)
[2022-07-13] MEDS ORDERED: IPRATROPIUM BROMIDE (0.02%) 0.5MG/2.5ML NEB HHN PRN (11:45)
[2022-07-13] MEDS: IPRATROPIUM BROMIDE (0.02%) 0.5MG/2.5ML NEB HHN SCH ×2 (11:57→20:23)
[2022-07-13] MEDS: ALBUTEROL (0.083%) 2.5MG/3ML NEB HHN SCH ×2 (11:57→20:24)
[2022-07-13] MEDS ORDERED: IPRATROPIUM/ALBUTEROL 0.5-3(2.5)MG/3ML NEB HHN SCH (12:00)
[2022-07-13] MEDS: DEXT 5%/0.45% NACL 1000ML 1,000 ML IV SCH (12:05)
[2022-07-13] MEDS ORDERED: MIDAZOLAM 100MG/100ML PMX 100 ML IV PRN ×2 (15:45→16:00)
[2022-07-13] MEDS: MIDAZOLAM HCL 100 MG in SODIUM CHLORIDE 0.9% 100 ML IV PRN (17:03)
[2022-07-13] MEDS: FENTANYL CITRATE 2,500 MCG in SODIUM CHLORIDE 0.9% 200 ML IV PRN (19:41)
[2022-07-13] MEDS ORDERED: EPOETIN ALFA 10000UNITS/ML VIAL SUBCUT NR (21:00)
[2022-07-13] MEDS ORDERED: EPOETIN ALFA-EPBX 4,000 UNIT/ML VIAL SUBCUT NR (21:00)
[2022-07-13] MEDS: PIPERACILLIN/TAZOBACTAM 3.375 G in DEXTROSE 5% WATER 50 ML IV SCH (21:23)
[2022-07-14] VITALS (74 sets, daily range): BP systolic 96–176; BP diastolic 62–113
[2022-07-14] MEDS: IPRATROPIUM BROMIDE (0.02%) 0.5MG/2.5ML NEB HHN SCH ×4 (01:54→20:26)
[2022-07-14] MEDS: ALBUTEROL (0.083%) 2.5MG/3ML NEB HHN SCH ×4 (01:54→20:27)
[2022-07-14] MEDS ORDERED: NOREPINEPHRINE 8MG/250ML PMX 250 ML IV PRN (02:45)
[2022-07-14] MEDS ORDERED: NOREPINEPHRINE 8 MG in DEXTROSE 5% WATER 250 ML IV PRN (02:45)
[2022-07-14 05:12] LABS: HEMOGLOBIN. 8.6 g/dL (14.0-18.0); MEAN CORPUSCULAR HEMOGLOBIN 22.7 pg (28.0-32.0); MEAN CORPUSCULAR VOLUME 71.2 fL (80.0-94.0); MEAN PLATELET VOLUME 8.4 fl (7.4-10.4); PLATELET 225 x1000/uL (130-400); RED BLOOD CELL COUNT 3.79 mill/uL (4.7-6.1); RED CELL DISTRIBUTION WIDTH 18.5 % (11.6-14.6)
[2022-07-14 06:16] LABS: PHOSPHORUS 5.6 mg/dL (2.5-4.9)
[2022-07-14] MEDS: DEXT 5%/0.45% NACL 1000ML 1,000 ML IV SCH (07:35)
[2022-07-14] MEDS ORDERED: SODIUM BICARBONATE 8.4% 1 MEQ/ML 50ML SYR IV NR (08:30)
[2022-07-14 08:31] LABS: BG BASE EXCESS -0.8 mmol/L (-2.0-2.0); BG CARBOXYHEMOGLOBIN 0.4 % (0.5-1.5); BG DEOXYHEMOGLOBIN 7.4 % (0.0-5.0); BG FRACTION INSPIRED OXYGEN 90; BG HCO3 ACT 21.7 mmol/L (22.0-26.0); BG METHEMOGLOBIN 0.7 % (0.0-1.5); BG OXYGEN SATURATION 92.5 % (92.0-98.5); BG OXYHEMOGLOBIN 91.5 % (94.0-97.0); BG PCO2 27.3 mmHg (35.0-45.0); BG PH 7.519 (7.350-7.450); BG PO2 63.2 mmHg (75.0-100.0); BG SAMPLE SITE RIGHT RADIAL; BG TOTAL HEMOGLOBIN 7.5 g/dL (12.0-18.0); BG VENT MODE VENT - AC
[2022-07-14] MEDS: PANTOPRAZOLE SODIUM 40 MG/VIAL IV SCH (09:32)
[2022-07-14] MEDS: PIPERACILLIN/TAZOBACTAM 3.375 G in DEXTROSE 5% WATER 50 ML IV SCH ×2 (09:32→21:16)
[2022-07-14 13:12] LABS: NUCLEATED RED BLOOD CELLS 7 /100 WBC
[2022-07-14 13:13] LABS: PLATELET ESTIMATE NORMAL
[2022-07-14] MEDS: METHYLPREDNISOLONE SOD SUCC 40 MG/ML VIAL IV SCH (18:15)
[2022-07-14] MEDS: MIDAZOLAM HCL 100 MG in SODIUM CHLORIDE 0.9% 100 ML IV PRN (19:48)
[2022-07-14] MEDS: CLONIDINE 0.1MG TABLET PO PRN (22:43)
[2022-07-15] VITALS (97 sets, daily range): BP systolic 115–180; BP diastolic 53–116
[2022-07-15] MEDS: IPRATROPIUM BROMIDE (0.02%) 0.5MG/2.5ML NEB HHN SCH ×4 (01:13→20:19)
[2022-07-15] MEDS: ALBUTEROL (0.083%) 2.5MG/3ML NEB HHN SCH ×4 (01:14→20:20)
[2022-07-15] MEDS: DEXT 5%/0.45% NACL 1000ML 1,000 ML IV SCH (02:31)
[2022-07-15] MEDS: METHYLPREDNISOLONE SOD SUCC 40 MG/ML VIAL IV SCH ×2 (02:31→09:30)
[2022-07-15] MEDS: CLONIDINE 0.1MG TABLET PO PRN (04:25)
[2022-07-15 05:16] LABS: EOSINOPHILS % 0.1 % (0.0-5.0); HEMATOCRIT. 23.8 % (42.0-52.0); HEMOGLOBIN. 7.9 g/dL (14.0-18.0); MEAN CORPUSCULAR HEMOGLOBIN 22.9 pg (28.0-32.0); MEAN CORPUSCULAR VOLUME 69.3 fL (80.0-94.0); MEAN PLATELET VOLUME 7.1 fl (7.4-10.4); MONOCYTES % 3.7 % (2.0-8.0); NEUTROPHILS % 79.2 % (40.0-76.0); PLATELET 207 x1000/uL (130-400); RED BLOOD CELL COUNT 3.44 mill/uL (4.7-6.1); RED CELL DISTRIBUTION WIDTH 18.2 % (11.6-14.6)
[2022-07-15 05:58] LABS: PHOSPHORUS 6.7 mg/dL (2.5-4.9)
[2022-07-15] MEDS: FENTANYL CITRATE 2,500 MCG in SODIUM CHLORIDE 0.9% 200 ML IV PRN (06:48)
[2022-07-15] MEDS ORDERED: HYDRALAZINE 20MG/ML VIAL IV PRN (07:00)
[2022-07-15] MEDS: PIPERACILLIN/TAZOBACTAM 3.375 G in DEXTROSE 5% WATER 50 ML IV SCH ×2 (08:22→20:34)
[2022-07-15] MEDS: PANTOPRAZOLE SODIUM 40 MG/VIAL IV SCH (08:23)
[2022-07-15 09:03] LABS: BG BASE EXCESS -1.7 mmol/L (-2.0-2.0); BG DEOXYHEMOGLOBIN 7.8 % (0.0-5.0); BG FRACTION INSPIRED OXYGEN 60; BG METHEMOGLOBIN 0.4 % (0.0-1.5); BG OXYGEN SATURATION 92.1 % (92.0-98.5); BG OXYHEMOGLOBIN 90.8 % (94.0-97.0); BG PCO2 32.7 mmHg (35.0-45.0); BG PH 7.446 (7.350-7.450); BG PO2 68.6 mmHg (75.0-100.0); BG SAMPLE SITE RIGHT RADIAL; BG TOTAL HEMOGLOBIN 8.1 g/dL (12.0-18.0); BG VENT MODE VENT - AC
[2022-07-15] MEDS ORDERED: AMLODIPINE 10MG TABLET PO SCH (13:15)
[2022-07-15] MEDS: AMLODIPINE 10MG TABLET PO SCH (16:36)
[2022-07-15] MEDS: HYDRALAZINE HCL 50MG TABLET PO SCH ×2 (16:37→21:04)
[2022-07-15] MEDS: MIDAZOLAM HCL 100 MG in SODIUM CHLORIDE 0.9% 100 ML IV PRN (17:32)
[2022-07-16] VITALS (98 sets, daily range): BP systolic 132–167; BP diastolic 69–108
[2022-07-16] MEDS: IPRATROPIUM BROMIDE (0.02%) 0.5MG/2.5ML NEB HHN SCH ×4 (02:10→21:09)
[2022-07-16] MEDS: ALBUTEROL (0.083%) 2.5MG/3ML NEB HHN SCH ×4 (02:10→21:09)
[2022-07-16 05:41] LABS: EOSINOPHILS % 0.1 % (0.0-5.0); HEMATOCRIT. 26.7 % (42.0-52.0); HEMOGLOBIN. 8.7 g/dL (14.0-18.0); LYMPHOCYTES % 13.7 % (20.0-50.0); MEAN CORPUSCULAR HEMOGLOBIN 23.2 pg (28.0-32.0); MONOCYTES % 14.9 % (2.0-8.0); NEUTROPHILS % 71.3 % (40.0-76.0); PLATELET 212 x1000/uL (130-400); RED BLOOD CELL COUNT 3.77 mill/uL (4.7-6.1); RED CELL DISTRIBUTION WIDTH 18.4 % (11.6-14.6)
[2022-07-16 05:45] LABS: PHOSPHORUS 6.1 mg/dL (2.5-4.9)
[2022-07-16] MEDS: HYDRALAZINE HCL 50MG TABLET PO SCH (06:12)
[2022-07-16] MEDS: FENTANYL CITRATE 2,500 MCG in SODIUM CHLORIDE 0.9% 200 ML IV PRN ×2 (06:13→22:00)
[2022-07-16] MEDS: MIDAZOLAM HCL 100 MG in SODIUM CHLORIDE 0.9% 100 ML IV PRN ×2 (07:30→21:24)
[2022-07-16 09:17] LABS: BG BASE EXCESS -1.2 mmol/L (-2.0-2.0); BG CARBOXYHEMOGLOBIN 0.1 % (0.5-1.5); BG DEOXYHEMOGLOBIN 2.3 % (0.0-5.0); BG FRACTION INSPIRED OXYGEN 80; BG HCO3 ACT 21.8 mmol/L (22.0-26.0); BG METHEMOGLOBIN 0.3 % (0.0-1.5); BG OXYGEN SATURATION 97.7 % (92.0-98.5); BG OXYHEMOGLOBIN 97.3 % (94.0-97.0); BG PCO2 29.8 mmHg (35.0-45.0); BG PH 7.483 (7.350-7.450); BG PO2 103.8 mmHg (75.0-100.0); BG SAMPLE SITE LEFT RADIAL; BG TOTAL RESPIRATORY RATE 27 b/min; BG VENT MODE VENT - AC
[2022-07-16] MEDS: PIPERACILLIN/TAZOBACTAM 3.375 G in DEXTROSE 5% WATER 50 ML IV SCH ×2 (10:03→21:25)
[2022-07-16] MEDS: PANTOPRAZOLE SODIUM 40 MG/VIAL IV SCH (10:03)
[2022-07-16] MEDS: AMLODIPINE 10MG TABLET PO SCH (10:03)
[2022-07-16] MEDS ORDERED: SODIUM BICARBONATE 4% (2.4MEQ) 5ML VIAL IV ONE (12:41)
[2022-07-16] MEDS ORDERED: LIDOCAINE HCL 1% 30ML VIAL (10MG/ML) ONE (12:41)
[2022-07-16] MEDS: HYDRALAZINE HCL 100MG TABLET PO SCH (14:54)
[2022-07-17] VITALS (101 sets, daily range): BP systolic 96–194; BP diastolic 58–130
[2022-07-17] MEDS: HYDRALAZINE HCL 100MG TABLET PO SCH ×4 (00:42→20:23)
[2022-07-17] MEDS: ALBUTEROL (0.083%) 2.5MG/3ML NEB HHN SCH ×4 (01:37→22:14)
[2022-07-17] MEDS: IPRATROPIUM BROMIDE (0.02%) 0.5MG/2.5ML NEB HHN SCH ×4 (01:37→22:14)
[2022-07-17 05:45] LABS: BASOPHILS % 0.2 % (0.0-2.0); EOSINOPHILS % 0.5 % (0.0-5.0); HEMATOCRIT. 22.4 % (42.0-52.0); HEMOGLOBIN. 7.3 g/dL (14.0-18.0); LYMPHOCYTES % 16.3 % (20.0-50.0); MEAN CORPUSCULAR HEMOGLOBIN 22.6 pg (28.0-32.0); MEAN CORPUSCULAR VOLUME 69.7 fL (80.0-94.0); MONOCYTES % 12.3 % (2.0-8.0); NEUTROPHILS % 70.7 % (40.0-76.0); PLATELET 194 x1000/uL (130-400); RED BLOOD CELL COUNT 3.21 mill/uL (4.7-6.1); RED CELL DISTRIBUTION WIDTH 18.4 % (11.6-14.6)
[2022-07-17 06:09] LABS: PHOSPHORUS 5.9 mg/dL (2.5-4.9)
[2022-07-17] MEDS: FENTANYL CITRATE 2,500 MCG in SODIUM CHLORIDE 0.9% 200 ML IV PRN (06:58)
[2022-07-17] MEDS: MIDAZOLAM HCL 100 MG in SODIUM CHLORIDE 0.9% 100 ML IV PRN (06:59)
[2022-07-17] MEDS: PANTOPRAZOLE SODIUM 40 MG/VIAL IV SCH (09:13)
[2022-07-17] MEDS: PIPERACILLIN/TAZOBACTAM 3.375 G in DEXTROSE 5% WATER 50 ML IV SCH ×2 (09:15→20:23)
[2022-07-17] MEDS: AMLODIPINE 10MG TABLET PO SCH (09:47)
[2022-07-17 11:10] LABS: BG BASE EXCESS 1.3 mmol/L (-2.0-2.0); BG CARBOXYHEMOGLOBIN 0.3 % (0.5-1.5); BG DEOXYHEMOGLOBIN 4.1 % (0.0-5.0); BG FRACTION INSPIRED OXYGEN 60; BG HCO3 ACT 24.7 mmol/L (22.0-26.0); BG METHEMOGLOBIN 0.3 % (0.0-1.5); BG OXYGEN SATURATION 95.9 % (92.0-98.5); BG OXYHEMOGLOBIN 95.3 % (94.0-97.0); BG PCO2 33.7 mmHg (35.0-45.0); BG PH 7.483 (7.350-7.450); BG PO2 83.8 mmHg (75.0-100.0); BG SAMPLE SITE LEFT RADIAL; BG TOTAL HEMOGLOBIN 8.2 g/dL (12.0-18.0); BG VENT MODE VENT - AC
[2022-07-17] MEDS: CLONIDINE 0.1MG TABLET PO PRN (20:23)
[2022-07-18] VITALS (42 sets, daily range): BP systolic 129–187; BP diastolic 52–138
[2022-07-18] MEDS: ALBUTEROL (0.083%) 2.5MG/3ML NEB HHN SCH ×3 (02:47→14:02)
[2022-07-18] MEDS: IPRATROPIUM BROMIDE (0.02%) 0.5MG/2.5ML NEB HHN SCH ×3 (02:47→14:02)
[2022-07-18] MEDS: HYDRALAZINE HCL 100MG TABLET PO SCH ×3 (05:45→21:06)
[2022-07-18] MEDS: CLONIDINE 0.1MG TABLET PO PRN ×2 (06:18→18:44)
[2022-07-18] MEDS: PIPERACILLIN/TAZOBACTAM 3.375 G in DEXTROSE 5% WATER 50 ML IV SCH ×2 (08:23→21:06)
[2022-07-18] MEDS: PANTOPRAZOLE SODIUM 40 MG/VIAL IV SCH (08:23)
[2022-07-18] MEDS: AMLODIPINE 10MG TABLET PO SCH (08:24)
[2022-07-18] MEDS ORDERED: THROAT LOZENGES-BENZOCAINE/MENTH/CETYLPYRD CL LOZENGES MM PRN (13:00)
[2022-07-19] VITALS (41 sets, daily range): BP systolic 124–184; BP diastolic 70–112
[2022-07-19] MEDS: CLONIDINE 0.1MG TABLET PO PRN ×2 (00:16→04:21)
[2022-07-19] MEDS ORDERED: HYDRALAZINE 20MG/ML VIAL IV PRN (05:00)
[2022-07-19] MEDS: HYDRALAZINE HCL 100MG TABLET PO SCH ×3 (05:51→22:46)
[2022-07-19 06:33] LABS: HEMATOCRIT. 25.8 % (42.0-52.0); HEMOGLOBIN. 8.7 g/dL (14.0-18.0); MEAN CORPUSCULAR HEMOGLOBIN 23.1 pg (28.0-32.0); MEAN CORPUSCULAR VOLUME 68.7 fL (80.0-94.0); MEAN PLATELET VOLUME 8.4 fl (7.4-10.4); PLATELET 212 x1000/uL (130-400); RED BLOOD CELL COUNT 3.75 mill/uL (4.7-6.1); RED CELL DISTRIBUTION WIDTH 17.5 % (11.6-14.6)
[2022-07-19 06:41] LABS: PHOSPHORUS 6.1 mg/dL (2.5-4.9)
[2022-07-19] MEDS: PANTOPRAZOLE SODIUM 40 MG/VIAL IV SCH (08:44)
[2022-07-19] MEDS: NIFEDIPINE XL 60MG TAB PO SCH ×2 (08:44→21:28)
[2022-07-19] MEDS: CLONIDINE 0.2MG TABLET PO SCH ×2 (12:31→21:28)
[2022-07-19 13:39] LABS: NUCLEATED RED BLOOD CELLS 1 /100 WBC; PLATELET ESTIMATE NORMAL
[2022-07-20 04:00] VITALS: BP 135/75
[2022-07-20] MEDS: HYDRALAZINE HCL 100MG TABLET PO SCH ×3 (05:42→20:50)
[2022-07-20] MEDS ORDERED: HYDRALAZINE HCL 50MG TABLET PO SCH (06:00)
[2022-07-20 06:54] LABS: HEMATOCRIT. 25.1 % (42.0-52.0); HEMOGLOBIN. 8.1 g/dL (14.0-18.0); MEAN CORPUSCULAR HEMOGLOBIN 22.5 pg (28.0-32.0); MEAN CORPUSCULAR VOLUME 69.6 fL (80.0-94.0); MEAN PLATELET VOLUME 7.4 fl (7.4-10.4); PLATELET 207 x1000/uL (130-400); RED BLOOD CELL COUNT 3.61 mill/uL (4.7-6.1); RED CELL DISTRIBUTION WIDTH 17.9 % (11.6-14.6)
[2022-07-20 07:10] LABS: PHOSPHORUS 5.4 mg/dL (2.5-4.9)
[2022-07-20 08:00] VITALS: BP 125/78
[2022-07-20] MEDS ORDERED: SODIUM BICARBONATE 650 MG TABLET PO SCH (09:00)
[2022-07-20] MEDS ORDERED: FUROSEMIDE 40MG/4 ML UDC PO SCH (09:00)
[2022-07-20] MEDS: NIFEDIPINE XL 60MG TAB PO SCH ×2 (09:24→20:50)
[2022-07-20] MEDS: AMLODIPINE 10MG TABLET PO SCH (09:25)
[2022-07-20] MEDS: CLONIDINE 0.2MG TABLET PO SCH ×2 (09:25→20:50)
[2022-07-20] MEDS: PANTOPRAZOLE SODIUM 40 MG/VIAL IV SCH (09:26)
[2022-07-20] MEDS: CARVEDILOL 3.125 MG TABLET PO SCH ×2 (09:26→20:50)
[2022-07-20 11:14] LABS: PLATELET ESTIMATE NORMAL
[2022-07-20 12:00] VITALS: BP 134/84
[2022-07-20 20:00] VITALS: BP 127/79
[2022-07-21] VITALS: BP 115/74
[2022-07-21 04:00] VITALS: BP 125/83
[2022-07-21] MEDS: HYDRALAZINE HCL 100MG TABLET PO SCH ×3 (06:07→21:28)
[2022-07-21 08:00] VITALS: BP 136/83
[2022-07-21] MEDS: PANTOPRAZOLE SODIUM 40 MG/VIAL IV SCH (08:58)
[2022-07-21] MEDS: AMLODIPINE 10MG TABLET PO SCH (08:58)
[2022-07-21] MEDS: CARVEDILOL 3.125 MG TABLET PO SCH ×2 (08:59→21:28)
[2022-07-21] MEDS: NIFEDIPINE XL 60MG TAB PO SCH ×2 (08:59→21:28)
[2022-07-21] MEDS: CLONIDINE 0.2MG TABLET PO SCH ×2 (09:00→21:50)
[2022-07-21 12:00] VITALS: BP 130/81
[2022-07-21 16:00] VITALS: BP 135/79
[2022-07-21 17:07] LABS: HEMOGLOBIN. 7.9 g/dL (14.0-18.0); MEAN CORPUSCULAR HEMOGLOBIN 22.5 pg (28.0-32.0); MEAN CORPUSCULAR VOLUME 68.3 fL (80.0-94.0); PLATELET 240 x1000/uL (130-400); RED BLOOD CELL COUNT 3.51 mill/uL (4.7-6.1); RED CELL DISTRIBUTION WIDTH 17.9 % (11.6-14.6)
[2022-07-21 17:37] LABS: PHOSPHORUS 5.8 mg/dL (2.5-4.9)
[2022-07-21 20:00] VITALS: BP 135/83
[2022-07-21 23:29] LABS: PLATELET ESTIMATE NORMAL
[2022-07-22] VITALS (15 sets, daily range): BP systolic 116–141; BP diastolic 69–81
[2022-07-22] MEDS ORDERED: IPRATROPIUM BROMIDE (0.02%) 0.5MG/2.5ML NEB HHN PRN (02:50)
[2022-07-22] MEDS ORDERED: ALBUTEROL (0.083%) 2.5MG/3ML NEB HHN PRN (02:50)
[2022-07-22] MEDS ORDERED: IPRATROPIUM/ALBUTEROL 0.5-3(2.5)MG/3ML NEB HHN PRN (03:00)
[2022-07-22 04:47] LABS: BASOPHILS % 0.4 % (0.0-2.0); EOSINOPHILS % 3.4 % (0.0-5.0); HEMATOCRIT. 24.1 % (42.0-52.0); LYMPHOCYTES % 20.5 % (20.0-50.0); MEAN CORPUSCULAR HEMOGLOBIN 22.3 pg (28.0-32.0); MEAN CORPUSCULAR VOLUME 67.6 fL (80.0-94.0); MEAN PLATELET VOLUME 6.9 fl (7.4-10.4); MONOCYTES % 19.5 % (2.0-8.0); NEUTROPHILS % 56.2 % (40.0-76.0); PLATELET 243 x1000/uL (130-400); RED BLOOD CELL COUNT 3.57 mill/uL (4.7-6.1); RED CELL DISTRIBUTION WIDTH 17.9 % (11.6-14.6)
[2022-07-22 05:07] LABS: PHOSPHORUS 6.2 mg/dL (2.5-4.9)
[2022-07-22] MEDS: HYDRALAZINE HCL 100MG TABLET PO SCH ×3 (05:27→21:30)
[2022-07-22] MEDS: PANTOPRAZOLE SODIUM 40 MG/VIAL IV SCH (08:53)
[2022-07-22] MEDS: CLONIDINE 0.2MG TABLET PO SCH ×2 (09:00→21:37)
[2022-07-22] MEDS: AMLODIPINE 10MG TABLET PO SCH (09:00)
[2022-07-22] MEDS: NIFEDIPINE XL 60MG TAB PO SCH ×2 (09:00→21:31)
[2022-07-22] MEDS: CARVEDILOL 3.125 MG TABLET PO SCH ×2 (09:01→21:32)
[2022-07-22] MEDS: CLONIDINE 0.1MG TABLET PO PRN (21:31)
[2022-07-22] MEDS: ACETAMINOPHEN 325MG TABLET PO PRN (21:32)
[2022-07-23] VITALS: BP 128/71
[2022-07-23 04:00] VITALS: BP 113/69
[2022-07-23] MEDS: HYDRALAZINE HCL 100MG TABLET PO SCH ×3 (06:32→21:28)
[2022-07-23 07:26] LABS: HEMATOCRIT. 23.4 % (42.0-52.0); HEMOGLOBIN. 7.7 g/dL (14.0-18.0); MEAN CORPUSCULAR HEMOGLOBIN 22.9 pg (28.0-32.0); MEAN CORPUSCULAR VOLUME 69.6 fL (80.0-94.0); MEAN PLATELET VOLUME 7.1 fl (7.4-10.4); PLATELET 249 x1000/uL (130-400); RED BLOOD CELL COUNT 3.37 mill/uL (4.7-6.1); RED CELL DISTRIBUTION WIDTH 17.6 % (11.6-14.6)
[2022-07-23 08:00] VITALS: BP 117/64
[2022-07-23] MEDS: PANTOPRAZOLE SODIUM 40 MG/VIAL IV SCH (08:40)
[2022-07-23] MEDS: CLONIDINE 0.2MG TABLET PO SCH ×2 (08:41→21:27)
[2022-07-23] MEDS: NIFEDIPINE XL 60MG TAB PO SCH ×2 (08:41→21:27)
[2022-07-23] MEDS: CARVEDILOL 3.125 MG TABLET PO SCH ×2 (08:42→21:28)
[2022-07-23 09:22] LABS: PHOSPHORUS 5.3 mg/dL (2.5-4.9)
[2022-07-23 12:00] VITALS: BP 145/80
[2022-07-23 14:06] LABS: BG BASE EXCESS 0.9 mmol/L (-2.0-2.0); BG CARBOXYHEMOGLOBIN 1.2 % (0.5-1.5); BG FRACTION INSPIRED OXYGEN 21; BG HCO3 ACT 28.3 mmol/L (22.0-26.0); BG METHEMOGLOBIN 0.5 % (0.0-1.5); BG OXYGEN SATURATION 82.7 % (92.0-98.5); BG OXYHEMOGLOBIN 81.3 % (94.0-97.0); BG PCO2 61.7 mmHg (35.0-45.0); BG PH 7.279 (7.350-7.450); BG SAMPLE SITE LEFT RADIAL; BG TOTAL HEMOGLOBIN 8.8 g/dL (12.0-18.0); BG VENT MODE ROOM AIR
[2022-07-23 16:00] VITALS: BP 164/94
[2022-07-23] MEDS: CLONIDINE 0.1MG TABLET PO PRN (16:13)
[2022-07-23 17:24] LABS: PLATELET ESTIMATE NORMAL
[2022-07-23 20:00] VITALS: BP 148/88
[2022-07-23] MEDS: ACETAMINOPHEN 325MG TABLET PO PRN (21:28)
[2022-07-24] VITALS (7 sets, daily range): BP systolic 116–133; BP diastolic 68–76
[2022-07-24] MEDS: HYDRALAZINE HCL 100MG TABLET PO SCH ×3 (06:13→21:30)
[2022-07-24] MEDS: CLONIDINE 0.2MG TABLET PO SCH ×2 (08:52→21:31)
[2022-07-24] MEDS: PANTOPRAZOLE SODIUM 40 MG/VIAL IV SCH (08:52)
[2022-07-24] MEDS: NIFEDIPINE XL 60MG TAB PO SCH ×2 (08:52→21:31)
[2022-07-24] MEDS: CARVEDILOL 3.125 MG TABLET PO SCH ×2 (08:52→21:31)
[2022-07-24 10:02] LABS: BG BASE EXCESS -1.7 mmol/L (-2.0-2.0); BG CARBOXYHEMOGLOBIN 0.8 % (0.5-1.5); BG DEOXYHEMOGLOBIN 10.6 % (0.0-5.0); BG FRACTION INSPIRED OXYGEN 28; BG OXYGEN SATURATION 89.3 % (92.0-98.5); BG OXYHEMOGLOBIN 88.6 % (94.0-97.0); BG PCO2 53.4 mmHg (35.0-45.0); BG PH 7.288 (7.350-7.450); BG PO2 63.2 mmHg (75.0-100.0); BG SAMPLE SITE LEFT BRACHIAL; BG TOTAL HEMOGLOBIN 7.9 g/dL (12.0-18.0); BG VENT MODE NASAL CANNULA
[2022-07-24 11:52] LABS: HEMATOCRIT. 23.4 % (42.0-52.0); HEMOGLOBIN. 7.7 g/dL (14.0-18.0); MEAN CORPUSCULAR HEMOGLOBIN 22.7 pg (28.0-32.0); MEAN CORPUSCULAR VOLUME 69.1 fL (80.0-94.0); MEAN PLATELET VOLUME 7.1 fl (7.4-10.4); PLATELET 260 x1000/uL (130-400); RED BLOOD CELL COUNT 3.39 mill/uL (4.7-6.1); RED CELL DISTRIBUTION WIDTH 17.6 % (11.6-14.6)
[2022-07-24 13:16] LABS: PHOSPHORUS 5.9 mg/dL (2.5-4.9)
[2022-07-24 16:52] LABS: PLATELET ESTIMATE NORMAL
[2022-07-24] MEDS: BUDESONIDE 0.5MG/2ML NEB HHN SCH (20:12)
[2022-07-24] MEDS: IPRATROPIUM BROMIDE (0.02%) 0.5MG/2.5ML NEB HHN SCH (20:12)
[2022-07-24] MEDS: ALBUTEROL (0.083%) 2.5MG/3ML NEB HHN SCH (20:13)
[2022-07-24] MEDS: GUAIFENESIN 600MG ER TABLET PO SCH (21:31)
[2022-07-25] VITALS (9 sets, daily range): BP systolic 112–155; BP diastolic 76–87
[2022-07-25] MEDS: HYDRALAZINE HCL 100MG TABLET PO SCH ×3 (05:58→21:22)
[2022-07-25 06:48] LABS: HEMATOCRIT. 22.8 % (42.0-52.0); HEMOGLOBIN. 7.5 g/dL (14.0-18.0); MEAN CORPUSCULAR HEMOGLOBIN 22.3 pg (28.0-32.0); MEAN CORPUSCULAR VOLUME 68.1 fL (80.0-94.0); MEAN PLATELET VOLUME 6.8 fl (7.4-10.4); PLATELET 270 x1000/uL (130-400); RED BLOOD CELL COUNT 3.34 mill/uL (4.7-6.1); RED CELL DISTRIBUTION WIDTH 17.6 % (11.6-14.6)
[2022-07-25 07:22] LABS: PHOSPHORUS 5.9 mg/dL (2.5-4.9)
[2022-07-25] MEDS: PANTOPRAZOLE SODIUM 40 MG/VIAL IV SCH (09:00)
[2022-07-25] MEDS: IPRATROPIUM BROMIDE (0.02%) 0.5MG/2.5ML NEB HHN SCH ×2 (09:54→17:40)
[2022-07-25] MEDS: ALBUTEROL (0.083%) 2.5MG/3ML NEB HHN SCH ×2 (09:54→17:40)
[2022-07-25] MEDS: BUDESONIDE 0.5MG/2ML NEB HHN SCH (09:55)
[2022-07-25] MEDS: GUAIFENESIN 600MG ER TABLET PO SCH ×2 (10:02→21:23)
[2022-07-25] MEDS: CARVEDILOL 3.125 MG TABLET PO SCH ×2 (10:03→21:23)
[2022-07-25] MEDS: NIFEDIPINE XL 60MG TAB PO SCH ×2 (10:03→21:23)
[2022-07-25] MEDS: CLONIDINE 0.2MG TABLET PO SCH ×2 (10:03→21:22)
[2022-07-25 19:16] LABS: BG BASE EXCESS -0.1 mmol/L (-2.0-2.0); BG CARBOXYHEMOGLOBIN 0.9 % (0.5-1.5); BG DEOXYHEMOGLOBIN 9.9 % (0.0-5.0); BG FRACTION INSPIRED OXYGEN 28; BG HCO3 ACT 25.2 mmol/L (22.0-26.0); BG METHEMOGLOBIN 0.5 % (0.0-1.5); BG OXYHEMOGLOBIN 88.7 % (94.0-97.0); BG PH 7.375 (7.350-7.450); BG PO2 61.3 mmHg (75.0-100.0); BG SAMPLE SITE LEFT RADIAL; BG TOTAL HEMOGLOBIN 8.2 g/dL (12.0-18.0); BG VENT MODE NASAL CANNULA
[2022-07-26] VITALS: BP 128/70
[2022-07-26] MEDS: IPRATROPIUM BROMIDE (0.02%) 0.5MG/2.5ML NEB HHN SCH (00:26)
[2022-07-26] MEDS: BUDESONIDE 0.5MG/2ML NEB HHN SCH ×2 (00:27→08:18)
[2022-07-26] MEDS: ALBUTEROL (0.083%) 2.5MG/3ML NEB HHN SCH ×2 (00:27→08:18)
[2022-07-26 04:00] VITALS: BP 147/86
[2022-07-26 05:41] LABS: BASOPHILS % 0.5 % (0.0-2.0); EOSINOPHILS % 3.1 % (0.0-5.0); HEMATOCRIT. 23.9 % (42.0-52.0); HEMOGLOBIN. 7.8 g/dL (14.0-18.0); LYMPHOCYTES % 23.4 % (20.0-50.0); MEAN CORPUSCULAR HEMOGLOBIN 21.7 pg (28.0-32.0); MEAN CORPUSCULAR VOLUME 66.9 fL (80.0-94.0); MEAN PLATELET VOLUME 6.8 fl (7.4-10.4); MONOCYTES % 13.7 % (2.0-8.0); NEUTROPHILS % 59.3 % (40.0-76.0); PLATELET 275 x1000/uL (130-400); RED BLOOD CELL COUNT 3.58 mill/uL (4.7-6.1)
[2022-07-26 05:49] LABS: CHLORIDE 104 mEq/L (98-107)
[2022-07-26 05:59] LABS: PHOSPHORUS 5.8 mg/dL (2.5-4.9)
[2022-07-26] MEDS: HYDRALAZINE HCL 100MG TABLET PO SCH ×2 (06:12→13:28)
[2022-07-26 07:00] LABS: PLATELET ESTIMATE NORMAL
[2022-07-26 08:00] VITALS: BP 132/77
[2022-07-26] MEDS: PANTOPRAZOLE SODIUM 40 MG/VIAL IV SCH (09:02)
[2022-07-26] MEDS: CLONIDINE 0.2MG TABLET PO SCH (09:03)
[2022-07-26] MEDS: GUAIFENESIN 600MG ER TABLET PO SCH (09:03)
[2022-07-26] MEDS: NIFEDIPINE XL 60MG TAB PO SCH (09:03)
[2022-07-26] MEDS: CARVEDILOL 3.125 MG TABLET PO SCH (09:04)
[2022-07-26] MEDS ORDERED: HYDR100T26 PO (09:10)
[2022-07-26] MEDS ORDERED: CARV12.545 MT (09:10)
[2022-07-26] MEDS ORDERED: LOSA100T32 MT (09:10)
[2022-07-26] MEDS ORDERED: ALBU18HF2 IH (09:11)
[2022-07-26] MEDS ORDERED: FLUT1DIS3 INH (09:11)
[2022-07-26 10:13] VITALS: BP 132/77
[2022-07-26 12:00] VITALS: BP 131/86
[2022-07-26] MEDS ORDERED: SEVELAMER CARBONATE 800 MG TABLET PO SCH (17:40)
[2022-07-27] MEDS ORDERED: PANTOPRAZOLE 40MG DR TABLET PO SCH (07:10)
== END 2022-07-26 14:40 | DRG 130 ==
LOC: ER 20:23 → MICUSO 23:20 → EDBEDREQ 23:21 → CVICU 07-13 14:08 → 8WST 07-19 22:33
PROVIDERS: ADMIT Internal Medicine; ATTEND Internal Medicine
PROC: 5A1955Z Respiratory Ventilation, Greater than 96 Consecutive Hours (ICD-10-PCS; principal; 2022-07-12)
PROC: 06HY33Z Insertion of Infusion Device into Lower Vein, Percutaneous Approach (ICD-10-PCS; 2022-07-12)
PROC: B54BZZA Ultrasonography of Right Lower Extremity Veins, Guidance (ICD-10-PCS; 2022-07-12)
PROC: 0BH17EZ Insertion of Endotracheal Airway into Trachea, Via Natural or Artificial Opening (ICD-10-PCS; 2022-07-12)
PROC: 02HV33Z Insertion of Infusion Device into Superior Vena Cava, Percutaneous Approach (ICD-10-PCS; 2022-07-12)
PROC: B548ZZA Ultrasonography of Superior Vena Cava, Guidance (ICD-10-PCS; 2022-07-13)
PROC: 5A1D70Z Performance of Urinary Filtration, Intermittent, Less than 6 Hours Per Day (ICD-10-PCS; 2022-07-13)
PROC: 5A1D70Z Performance of Urinary Filtration, Intermittent, Less than 6 Hours Per Day (ICD-10-PCS; 2022-07-15)
PROC: 0W9G30Z Drainage of Peritoneal Cavity with Drainage Device, Percutaneous Approach (ICD-10-PCS; 2022-07-16)
PROC: 5A1D70Z Performance of Urinary Filtration, Intermittent, Less than 6 Hours Per Day (ICD-10-PCS; 2022-07-17)
PROC: 5A1D70Z Performance of Urinary Filtration, Intermittent, Less than 6 Hours Per Day (ICD-10-PCS; 2022-07-19)
PROC: 5A1D70Z Performance of Urinary Filtration, Intermittent, Less than 6 Hours Per Day (ICD-10-PCS; 2022-07-22)
PROC: 5A1D70Z Performance of Urinary Filtration, Intermittent, Less than 6 Hours Per Day (ICD-10-PCS; 2022-07-25)
DX: J96.01 Acute respiratory failure with hypoxia (principal); G93.40 Encephalopathy, unspecified; I50.23 Acute on chronic systolic (congestive) heart failure; R18.8 Other ascites; E44.1 Mild protein-calorie malnutrition; N17.9 Acute kidney failure, unspecified; E87.20 Acidosis, unspecified; N18.6 End stage renal disease; D63.1 Anemia in chronic kidney disease; J96.02 Acute respiratory failure with hypercapnia; I13.2 Hypertensive heart and chronic kidney disease with heart failure and with stage 5 chronic kidney disease, or end stage renal disease; Z20.822 Contact with and (suspected) exposure to COVID-19; E78.00 Pure hypercholesterolemia, unspecified; E87.5 Hyperkalemia; E78.5 Hyperlipidemia, unspecified; E66.2 Morbid (severe) obesity with alveolar hypoventilation; F14.129 Cocaine abuse with intoxication, unspecified; F17.210 Nicotine dependence, cigarettes, uncomplicated; Z68.31 Body mass index [BMI] 31.0-31.9, adult; Z99.2 Dependence on renal dialysis; Z91.15 Patient's noncompliance with renal dialysis; Z79.899 Other long term (current) drug therapy; Z82.49 Family history of ischemic heart disease and other diseases of the circulatory system
CPT/HCPCS: 31500; 36415; 36556; 36600; 49083; 71045; 71250; 74176; 76604; 76705; 76937; 78582; 80048; 80053; 80305; 80320; 82375; 82805; 82962; 83735; 83880; 84100; 84145; 84484; 85025; 85732; 86705; 86706; 86709; 86803; 87070; 87340; 87426; 87804; 90935; 93005; 93970; 94002; 94003; 94640; 97110; 97162; 97166; 97530; 99291; A9558; C1752; C1893; C9113; J0360; J0610; J0885; J1642; J1815; J1940; J2250; J2310; J2543; J2704; J2920; J2930; J3010; J3370; J3490; J7050; J7060; J7626; G0480

== ENCOUNTER 2022-07-30 09:18 | Inpatient (IN) | payer OTHER ==
[~2022-07-30] VITALS: Ht 175.3 cm; Wt 77.9 kg
[2022-07-30] VITALS (13 sets, daily range): BP systolic 102–142; BP diastolic 60–82
[~2022-07-30 09:18] MED LIST changes: -AMLO10TA80 PO; +CARV12.545 MT; +HYDR100T26 PO; +LOSA100T32 MT
[2022-07-30 09:51] LABS: BASOPHILS % 0.5 % (0.0-2.0); EOSINOPHILS % 0.2 % (0.0-5.0); HEMATOCRIT. 26.4 % (42.0-52.0); HEMOGLOBIN. 8.3 g/dL (14.0-18.0); LYMPHOCYTES % 15.6 % (20.0-50.0); MEAN CORPUSCULAR HEMOGLOBIN 21.7 pg (28.0-32.0); MEAN CORPUSCULAR VOLUME 69.1 fL (80.0-94.0); MEAN PLATELET VOLUME 7.1 fl (7.4-10.4); MONOCYTES % 9.2 % (2.0-8.0); NEUTROPHILS % 74.5 % (40.0-76.0); PLATELET 269 x1000/uL (130-400); RED BLOOD CELL COUNT 3.82 mill/uL (4.7-6.1); RED CELL DISTRIBUTION WIDTH 18.2 % (11.6-14.6)
[2022-07-30 09:58] LABS: CHLORIDE 105 mEq/L (98-107)
[2022-07-30 10:05] LABS: PLATELET ESTIMATE NORMAL
[2022-07-30] MEDS ORDERED: FUROSEMIDE 100MG/10ML VIAL IV STA (10:52)
[2022-07-30] MEDS ORDERED: SODIUM BICARBONATE 8.4% 1 MEQ/ML 50ML SYR IV ONE (11:00)
[2022-07-30] MEDS ORDERED: ALBUTEROL (0.083%) 2.5MG/3ML NEB HHN ONE (11:00)
[2022-07-30] MEDS ORDERED: DEXTROSE 50% WATER 50ML SYRINGE IV ONE (11:00)
[2022-07-30] MEDS ORDERED: CALCIUM CHLORIDE 1GM/10ML SYR IV ONE (11:00)
[2022-07-30] MEDS ORDERED: INSULIN REGULAR (HUMULIN R) 300UNITS/3ML VIAL IV ONE (11:00)
[2022-07-30] MEDS ORDERED: ACETAMINOPHEN 325MG TABLET PO ONE (11:15)
[2022-07-30] MEDS ORDERED: SODIUM BICARBONATE 8.4% 1 MEQ/ML 50ML SYR IV NR (11:30)
[2022-07-30] MEDS ORDERED: ACETAMINOPHEN 325MG TABLET PO PRN ×2 (15:45)
[2022-07-30] MEDS ORDERED: IPRATROPIUM/ALBUTEROL 0.5-3(2.5)MG/3ML NEB HHN PRN (15:45)
[2022-07-30] MEDS ORDERED: ONDANSETRON HCL 4MG/2ML INJ IV PRN (15:45)
[2022-07-30] MEDS ORDERED: HYDROCODONE/ACETAMINOPHEN 5/325MG TABLET PO PRN (15:45)
[2022-07-30] MEDS ORDERED: LORAZEPAM 0.5MG TABLET PO PRN (15:45)
[2022-07-30] MEDS ORDERED: ALBUTEROL (0.083%) 2.5MG/3ML NEB HHN PRN (16:00)
[2022-07-30] MEDS ORDERED: NALOXONE HCL 0.4MG/ML VIAL IV PRN (16:00)
[2022-07-30] MEDS ORDERED: IPRATROPIUM BROMIDE (0.02%) 0.5MG/2.5ML NEB HHN PRN (16:00)
[2022-07-30] MEDS ORDERED: DOCUSATE SODIUM 100MG CAPSULE PO PRN (17:00)
[2022-07-30 17:23] LABS: FERRITIN 92 ng/mL (22-322)
[2022-07-30 17:35] LABS: HEPATITIS B SURFACE ANTIGEN NEGATIVE
[2022-07-30] MEDS: ATORVASTATIN CALCIUM 20MG TABLET PO SCH (20:35)
[2022-07-31 04:00] VITALS: BP 160/85
[2022-07-31] MEDS: CLONIDINE 0.1MG TABLET PO PRN (04:31)
[2022-07-31 04:32] LABS: *AMPHETAMINES SCREEN URINE NEGATIVE (NEGATIVE); *BARBITURATES SCREEN URINE NEGATIVE (NEGATIVE); *BENZODIAZEPINES SCREEN URINE PRESUMTIVE POSITIVE (NEGATIVE); *COCAINE SCREEN URINE PRESUMTIVE POSITIVE (NEGATIVE); CANNABINOID URINE SCREEN NEGATIVE (NEGATIVE); METHADONE URINE SCREEN NEGATIVE (NEGATIVE); OPIATES URINE SCREEN NEGATIVE (NEGATIVE); PHENCYCLIDINE URINE SCREEN NEGATIVE (NEGATIVE)
[2022-07-31 07:15] LABS: PHOSPHORUS 7.6 mg/dL (2.5-4.9)
[2022-07-31 07:43] LABS: BASOPHILS % 0.1 % (0.0-2.0); EOSINOPHILS % 0.1 % (0.0-5.0); HEMATOCRIT. 22.3 % (42.0-52.0); HEMOGLOBIN. 7.3 g/dL (14.0-18.0); LYMPHOCYTES % 7.2 % (20.0-50.0); MEAN CORPUSCULAR HEMOGLOBIN 22.6 pg (28.0-32.0); MEAN CORPUSCULAR VOLUME 68.6 fL (80.0-94.0); MEAN PLATELET VOLUME 6.9 fl (7.4-10.4); MONOCYTES % 11.2 % (2.0-8.0); NEUTROPHILS % 81.4 % (40.0-76.0); PLATELET 226 x1000/uL (130-400); RED BLOOD CELL COUNT 3.25 mill/uL (4.7-6.1); RED CELL DISTRIBUTION WIDTH 17.5 % (11.6-14.6)
[2022-07-31 08:00] VITALS: BP 130/88
[2022-07-31] MEDS ORDERED: ASPIRIN 81MG TABLET PO SCH (09:00)
[2022-07-31 12:00] VITALS: BP 126/92
[2022-07-31 12:39] LABS: BG BASE EXCESS -3.4 mmol/L (-2.0-2.0); BG CARBOXYHEMOGLOBIN 0.8 % (0.5-1.5); BG DEOXYHEMOGLOBIN 18.1 % (0.0-5.0); BG HCO3 ACT 23.8 mmol/L (22.0-26.0); BG METHEMOGLOBIN 0.3 % (0.0-1.5); BG OXYGEN SATURATION 81.7 % (92.0-98.5); BG OXYHEMOGLOBIN 80.8 % (94.0-97.0); BG PCO2 56.1 mmHg (35.0-45.0); BG PH 7.245 (7.350-7.450); BG PO2 47.5 mmHg (75.0-100.0); BG SAMPLE SITE LEFT RADIAL; BG TOTAL HEMOGLOBIN 7.3 g/dL (12.0-18.0); BG VENT MODE 21
[2022-07-31] MEDS: DEXAMETHASONE 10 MG/ML VIAL IV SCH (12:53)
[2022-07-31] MEDS ORDERED: CEFTRIAXONE 1,000 MG in DEXTROSE 5% WATER 50 ML IV SCH (13:00)
[2022-07-31] MEDS ORDERED: AZITHROMYCIN 500 MG in DEXT 5% WATER 250 ML IV SCH (13:00)
[2022-07-31 16:00] VITALS: BP 150/89
[2022-07-31] MEDS: CEFTRIAXONE 1,000 MG in DEXTROSE 5% WATER 50 ML IV SCH (16:00)
[2022-07-31] MEDS: AZITHROMYCIN 500 MG in DEXT 5% WATER 250 ML IV SCH (16:00)
[2022-07-31 16:15] LABS: BG BASE EXCESS -5.4 mmol/L (-2.0-2.0); BG CARBOXYHEMOGLOBIN 0.6 % (0.5-1.5); BG DEOXYHEMOGLOBIN 7.1 % (0.0-5.0); BG FRACTION INSPIRED OXYGEN 36; BG METHEMOGLOBIN 0.2 % (0.0-1.5); BG OXYGEN SATURATION 92.8 % (92.0-98.5); BG OXYHEMOGLOBIN 92.1 % (94.0-97.0); BG PCO2 74.4 mmHg (35.0-45.0); BG PH 7.126 (7.350-7.450); BG PO2 78.9 mmHg (75.0-100.0); BG SAMPLE SITE RIGHT RADIAL; BG VENT MODE NASAL CANNULA
[2022-07-31] MEDS: ALBUTEROL 6.7GM HFA INHALER ORI SCH (18:45)
[2022-07-31 20:00] VITALS: BP 141/84
[2022-07-31 21:05] LABS: D-DIMER 4.03 mg/L FEU (<0.50); INR 1.1; PROTHROMBIN TIME 11.3 sec (9.6-11.0)
[2022-07-31] MEDS: EPOETIN ALFA-EPBX 4,000 UNIT/ML VIAL SUBCUT SCH (21:41)
[2022-07-31] MEDS: ATORVASTATIN CALCIUM 20MG TABLET PO SCH (21:41)
[2022-07-31] MEDS: GUAIFENESIN 600MG ER TABLET PO SCH (21:42)
[2022-08-01] VITALS (16 sets, daily range): BP systolic 150–199; BP diastolic 82–113
[2022-08-01] MEDS: ALBUTEROL 6.7GM HFA INHALER ORI SCH
[2022-08-01 07:32] LABS: BASOPHILS % 0.1 % (0.0-2.0); LYMPHOCYTES % 8.1 % (20.0-50.0); MEAN CORPUSCULAR HEMOGLOBIN 22.4 pg (28.0-32.0); MEAN CORPUSCULAR VOLUME 68.1 fL (80.0-94.0); MEAN PLATELET VOLUME 7.2 fl (7.4-10.4); MONOCYTES % 11.7 % (2.0-8.0); NEUTROPHILS % 80.1 % (40.0-76.0); PLATELET 234 x1000/uL (130-400); RED CELL DISTRIBUTION WIDTH 17.8 % (11.6-14.6)
[2022-08-01 08:26] LABS: HEMOGLOBIN. 6.5 g/dL (14.0-18.0)
[2022-08-01 08:27] LABS: HEMATOCRIT. 19.8 % (42.0-52.0)
[2022-08-01] MEDS: GUAIFENESIN 600MG ER TABLET PO SCH ×2 (08:35→21:38)
[2022-08-01] MEDS: DEXAMETHASONE 10 MG/ML VIAL IV SCH (08:35)
[2022-08-01 09:08] LABS: BG CARBOXYHEMOGLOBIN 0.5 % (0.5-1.5); BG DEOXYHEMOGLOBIN 18.5 % (0.0-5.0); BG FRACTION INSPIRED OXYGEN 21; BG HCO3 ACT 20.1 mmol/L (22.0-26.0); BG METHEMOGLOBIN 0.1 % (0.0-1.5); BG OXYGEN SATURATION 81.4 % (92.0-98.5); BG OXYHEMOGLOBIN 80.9 % (94.0-97.0); BG PCO2 42.7 mmHg (35.0-45.0); BG PH 7.291 (7.350-7.450); BG PO2 49.9 mmHg (75.0-100.0); BG SAMPLE SITE RIGHT RADIAL; BG TOTAL HEMOGLOBIN 6.7 g/dL (12.0-18.0); BG VENT MODE ROOM AIR
[2022-08-01 09:19] LABS: PHOSPHORUS 7.3 mg/dL (2.5-4.9)
[2022-08-01] MEDS: LACTULOSE 20G/30ML UDC PO SCH ×2 (14:00→21:38)
[2022-08-01] MEDS: AZITHROMYCIN 500 MG in DEXT 5% WATER 250 ML IV SCH (16:53)
[2022-08-01] MEDS: CEFTRIAXONE 1,000 MG in DEXTROSE 5% WATER 50 ML IV SCH (16:53)
[2022-08-01 18:07] LABS: HEMATOCRIT 24.2 % (42.0-52.0); HEMOGLOBIN 7.8 g/dL (14.0-18.0)
[2022-08-01] MEDS: ATORVASTATIN CALCIUM 20MG TABLET PO SCH (21:38)
[2022-08-02] VITALS (13 sets, daily range): BP systolic 132–175; BP diastolic 66–115
[2022-08-02] MEDS: CLONIDINE 0.1MG TABLET PO PRN ×2 (05:10→10:47)
[2022-08-02] MEDS: LACTULOSE 20G/30ML UDC PO SCH ×3 (06:00→22:57)
[2022-08-02 08:46] LABS: HEMATOCRIT. 27.8 % (42.0-52.0); HEMOGLOBIN. 8.7 g/dL (14.0-18.0); MEAN CORPUSCULAR HEMOGLOBIN 22.8 pg (28.0-32.0); MEAN CORPUSCULAR VOLUME 72.8 fL (80.0-94.0); PLATELET 262 x1000/uL (130-400); RED BLOOD CELL COUNT 3.83 mill/uL (4.7-6.1); RED CELL DISTRIBUTION WIDTH 19.1 % (11.6-14.6)
[2022-08-02] MEDS: GUAIFENESIN 600MG ER TABLET PO SCH ×3 (09:09→22:58)
[2022-08-02] MEDS: DEXAMETHASONE 10 MG/ML VIAL IV SCH (09:09)
[2022-08-02] MEDS: AMLODIPINE 5MG TABLET PO SCH ×3 (09:09→22:58)
[2022-08-02 09:18] LABS: PHOSPHORUS 4.8 mg/dL (2.5-4.9)
[2022-08-02] MEDS: ALBUTEROL 6.7GM HFA INHALER ORI SCH ×3 (11:00→23:03)
[2022-08-02 13:24] LABS: PLATELET ESTIMATE NORMAL
[2022-08-02] MEDS: CEFTRIAXONE 1,000 MG in DEXTROSE 5% WATER 50 ML IV SCH (16:28)
[2022-08-02] MEDS: AZITHROMYCIN 500 MG in DEXT 5% WATER 250 ML IV SCH (16:29)
[2022-08-02] MEDS: HYDRALAZINE 20MG/ML VIAL IV PRN (17:03)
[2022-08-02] MEDS: ATORVASTATIN CALCIUM 20MG TABLET PO SCH ×2 (21:00→22:58)
[2022-08-02] MEDS ORDERED: GUAIFENESIN 600MG ER TABLET PO SCH (21:00)
[2022-08-02] MEDS: EPOETIN ALFA-EPBX 4,000 UNIT/ML VIAL SUBCUT SCH (22:57)
[2022-08-03] VITALS (17 sets, daily range): BP systolic 132–165; BP diastolic 80–93
[2022-08-03] MEDS: HYDRALAZINE 20MG/ML VIAL IV PRN (04:54)
[2022-08-03] MEDS: LACTULOSE 20G/30ML UDC PO SCH ×3 (05:03→21:51)
[2022-08-03] MEDS: ALBUTEROL 6.7GM HFA INHALER ORI SCH ×3 (05:03→18:12)
[2022-08-03 06:27] LABS: HEMATOCRIT. 27.7 % (42.0-52.0); MEAN CORPUSCULAR HEMOGLOBIN 22.5 pg (28.0-32.0); MEAN PLATELET VOLUME 6.6 fl (7.4-10.4); PLATELET 252 x1000/uL (130-400); RED BLOOD CELL COUNT 4.02 mill/uL (4.7-6.1)
[2022-08-03 07:23] LABS: PHOSPHORUS 3.7 mg/dL (2.5-4.9)
[2022-08-03] MEDS: AMLODIPINE 5MG TABLET PO SCH ×2 (09:11→21:50)
[2022-08-03] MEDS: GUAIFENESIN 600MG ER TABLET PO SCH ×2 (09:11→21:50)
[2022-08-03] MEDS: DEXAMETHASONE 10 MG/ML VIAL IV SCH (09:11)
[2022-08-03 11:21] LABS: NUCLEATED RED BLOOD CELLS 1 /100 WBC
[2022-08-03 11:22] LABS: PLATELET ESTIMATE NORMAL
[2022-08-03] MEDS: CEFTRIAXONE 1,000 MG in DEXTROSE 5% WATER 50 ML IV SCH (15:20)
[2022-08-03] MEDS: AZITHROMYCIN 500 MG TABLET PO SCH (16:36)
[2022-08-03] MEDS: ATORVASTATIN CALCIUM 20MG TABLET PO SCH (21:49)
[2022-08-04] VITALS (9 sets, daily range): BP systolic 122–175; BP diastolic 82–104
[2022-08-04] MEDS: ALBUTEROL 6.7GM HFA INHALER ORI SCH (00:22)
[2022-08-04] MEDS: HYDRALAZINE 20MG/ML VIAL IV PRN (00:24)
[2022-08-04] MEDS: LACTULOSE 20G/30ML UDC PO SCH ×3 (06:00→21:12)
[2022-08-04] MEDS: GUAIFENESIN 600MG ER TABLET PO SCH ×2 (08:57→21:12)
[2022-08-04] MEDS: DEXAMETHASONE 10 MG/ML VIAL IV SCH (08:57)
[2022-08-04] MEDS: AMLODIPINE 5MG TABLET PO SCH ×2 (09:00→21:13)
[2022-08-04] MEDS ORDERED: LIDOCAINE HCL 1% 10 MG/ML 10ML VIAL ONE (13:47)
[2022-08-04] MEDS ORDERED: SODIUM BICARBONATE 4% (2.4MEQ) 5ML VIAL IV ONE (13:47)
[2022-08-04] MEDS: CEFTRIAXONE 1,000 MG in DEXTROSE 5% WATER 50 ML IV SCH (15:15)
[2022-08-04] MEDS: CLONIDINE 0.1MG TABLET PO PRN (15:16)
[2022-08-04] MEDS: AZITHROMYCIN 500 MG TABLET PO SCH (15:18)
[2022-08-04 16:28] LABS: HEMOGLOBIN. 9.5 g/dL (14.0-18.0); MEAN CORPUSCULAR HEMOGLOBIN 22.5 pg (28.0-32.0); MEAN CORPUSCULAR VOLUME 68.7 fL (80.0-94.0); MEAN PLATELET VOLUME 6.9 fl (7.4-10.4); PLATELET 274 x1000/uL (130-400); RED BLOOD CELL COUNT 4.22 mill/uL (4.7-6.1); RED CELL DISTRIBUTION WIDTH 18.9 % (11.6-14.6)
[2022-08-04 17:00] LABS: PHOSPHORUS 4.4 mg/dL (2.5-4.9)
[2022-08-04 18:32] LABS: PLATELET ESTIMATE NORMAL
[2022-08-04] MEDS: ATORVASTATIN CALCIUM 20MG TABLET PO SCH (21:12)
[2022-08-05] VITALS: BP 159/94
[2022-08-05 04:00] VITALS: BP 152/97
[2022-08-05] MEDS: LACTULOSE 20G/30ML UDC PO SCH ×3 (05:07→20:45)
[2022-08-05 06:55] LABS: HEMATOCRIT. 27.3 % (42.0-52.0); HEMOGLOBIN. 9.1 g/dL (14.0-18.0); MEAN PLATELET VOLUME 6.9 fl (7.4-10.4); PLATELET 294 x1000/uL (130-400); RED BLOOD CELL COUNT 3.96 mill/uL (4.7-6.1); RED CELL DISTRIBUTION WIDTH 18.8 % (11.6-14.6)
[2022-08-05 07:25] LABS: PHOSPHORUS 4.9 mg/dL (2.5-4.9)
[2022-08-05] MEDS: DEXAMETHASONE 10 MG/ML VIAL IV SCH (09:34)
[2022-08-05] MEDS: AMLODIPINE 5MG TABLET PO SCH ×2 (09:34→20:45)
[2022-08-05] MEDS: GUAIFENESIN 600MG ER TABLET PO SCH ×2 (09:34→20:45)
[2022-08-05 10:23] LABS: NUCLEATED RED BLOOD CELLS 1 /100 WBC
[2022-08-05 10:24] LABS: PLATELET ESTIMATE NORMAL
[2022-08-05 12:00] VITALS: BP 149/81
[2022-08-05] MEDS: ALBUTEROL 6.7GM HFA INHALER ORI SCH ×2 (12:00→18:00)
[2022-08-05] MEDS: CEFTRIAXONE 1,000 MG in DEXTROSE 5% WATER 50 ML IV SCH (15:33)
[2022-08-05] MEDS: AZITHROMYCIN 500 MG TABLET PO SCH (15:33)
[2022-08-05 16:00] VITALS: BP 142/88
[2022-08-05 20:00] VITALS: BP 132/94
[2022-08-05] MEDS: ATORVASTATIN CALCIUM 20MG TABLET PO SCH (20:45)
[2022-08-05] MEDS: EPOETIN ALFA-EPBX 4,000 UNIT/ML VIAL SUBCUT SCH (20:45)
[2022-08-06] VITALS (11 sets, daily range): BP systolic 130–163; BP diastolic 37–97
[2022-08-06] MEDS: LACTULOSE 20G/30ML UDC PO SCH ×3 (05:12→22:22)
[2022-08-06 07:01] LABS: EOSINOPHILS % 0.1 % (0.0-5.0); HEMOGLOBIN. 9.2 g/dL (14.0-18.0); LYMPHOCYTES % 17.7 % (20.0-50.0); MEAN CORPUSCULAR HEMOGLOBIN 22.8 pg (28.0-32.0); MEAN CORPUSCULAR VOLUME 69.3 fL (80.0-94.0); MEAN PLATELET VOLUME 6.7 fl (7.4-10.4); MONOCYTES % 13.5 % (2.0-8.0); NEUTROPHILS % 68.7 % (40.0-76.0); PLATELET 306 x1000/uL (130-400); RED BLOOD CELL COUNT 4.04 mill/uL (4.7-6.1)
[2022-08-06] MEDS: GUAIFENESIN 600MG ER TABLET PO SCH ×2 (09:08→22:22)
[2022-08-06] MEDS: DEXAMETHASONE 10 MG/ML VIAL IV SCH (09:08)
[2022-08-06] MEDS: AMLODIPINE 5MG TABLET PO SCH ×2 (09:08→22:23)
[2022-08-06] MEDS ORDERED: MAGNESIUM 2 G PREMIX 50 ML IV NR (11:00)
[2022-08-06] MEDS: ATORVASTATIN CALCIUM 20MG TABLET PO SCH (22:23)
[2022-08-06] MEDS: QUETIAPINE FUMARATE 25MG TABLET PO SCH (22:23)
[2022-08-07] MEDS: LACTULOSE 20G/30ML UDC PO SCH ×3 (06:00→21:32)
[2022-08-07 06:51] LABS: HEMOGLOBIN. 9.5 g/dL (14.0-18.0); MEAN CORPUSCULAR HEMOGLOBIN 22.6 pg (28.0-32.0); MEAN CORPUSCULAR VOLUME 69.2 fL (80.0-94.0); MEAN PLATELET VOLUME 6.8 fl (7.4-10.4); PLATELET 313 x1000/uL (130-400); RED CELL DISTRIBUTION WIDTH 19.2 % (11.6-14.6)
[2022-08-07 07:29] LABS: PHOSPHORUS 3.7 mg/dL (2.5-4.9)
[2022-08-07 08:00] VITALS: BP 160/95
[2022-08-07] MEDS: DEXAMETHASONE 10 MG/ML VIAL IV SCH (09:00)
[2022-08-07 09:35] LABS: PLATELET ESTIMATE NORMAL
[2022-08-07] MEDS: AMLODIPINE 5MG TABLET PO SCH ×2 (09:45→21:33)
[2022-08-07] MEDS: GUAIFENESIN 600MG ER TABLET PO SCH ×2 (09:45→21:33)
[2022-08-07 12:00] VITALS: BP 128/85
[2022-08-07 13:07] LABS: BARBITURATE SCREEN Negative ug/mL (Cutoff:0.1); OPIATES SCREEN Negative ng/mL (Cutoff:5); PHENCYCLIDINE SCREEN Negative ng/mL (Cutoff:8)
[2022-08-07] MEDS: DEXAMETHASONE 4MG TABLET PO SCH (13:44)
[2022-08-07] MEDS ORDERED: DEXAMETHASONE 4MG TABLET PO SCH (14:00)
[2022-08-07 16:00] VITALS: BP 153/95
[2022-08-07 20:00] VITALS: BP 146/95
[2022-08-07] MEDS: QUETIAPINE FUMARATE 25MG TABLET PO SCH (21:33)
[2022-08-07] MEDS: ATORVASTATIN CALCIUM 20MG TABLET PO SCH (21:33)
[2022-08-08] VITALS (13 sets, daily range): BP systolic 121–165; BP diastolic 79–99
[2022-08-08] MEDS: LACTULOSE 20G/30ML UDC PO SCH ×3 (06:00→20:44)
[2022-08-08 06:37] LABS: HEMATOCRIT. 28.2 % (42.0-52.0); HEMOGLOBIN. 9.2 g/dL (14.0-18.0); MEAN CORPUSCULAR HEMOGLOBIN 22.6 pg (28.0-32.0); MEAN PLATELET VOLUME 6.8 fl (7.4-10.4); PLATELET 315 x1000/uL (130-400); RED BLOOD CELL COUNT 4.09 mill/uL (4.7-6.1); RED CELL DISTRIBUTION WIDTH 18.8 % (11.6-14.6)
[2022-08-08 07:31] LABS: PHOSPHORUS 2.5 mg/dL (2.5-4.9)
[2022-08-08 09:27] LABS: PLATELET ESTIMATE NORMAL
[2022-08-08] MEDS: GUAIFENESIN 600MG ER TABLET PO SCH ×2 (10:06→20:44)
[2022-08-08] MEDS: DEXAMETHASONE 4MG TABLET PO SCH (10:06)
[2022-08-08] MEDS: AMLODIPINE 5MG TABLET PO SCH ×2 (10:06→20:44)
[2022-08-08] MEDS: QUETIAPINE FUMARATE 25MG TABLET PO SCH (20:44)
[2022-08-08] MEDS: ATORVASTATIN CALCIUM 20MG TABLET PO SCH (20:44)
[2022-08-09] VITALS: BP 143/91
[2022-08-09 04:00] VITALS: BP 160/106
[2022-08-09] MEDS: LACTULOSE 20G/30ML UDC PO SCH ×3 (06:44→22:05)
[2022-08-09 08:00] VITALS: BP 164/112
[2022-08-09] MEDS: DEXAMETHASONE 4MG TABLET PO SCH (09:30)
[2022-08-09] MEDS: AMLODIPINE 5MG TABLET PO SCH ×2 (09:31→22:04)
[2022-08-09] MEDS: GUAIFENESIN 600MG ER TABLET PO SCH ×2 (09:31→22:05)
[2022-08-09 12:00] VITALS: BP 150/85
[2022-08-09 16:00] VITALS: BP 136/83
[2022-08-09 20:00] VITALS: BP 135/85
[2022-08-09] MEDS: QUETIAPINE FUMARATE 25MG TABLET PO SCH (22:05)
[2022-08-09] MEDS: CLONIDINE 0.2MG TABLET PO SCH (22:05)
[2022-08-09] MEDS: ATORVASTATIN CALCIUM 20MG TABLET PO SCH (22:05)
[2022-08-10] VITALS: BP 164/99
[2022-08-10 04:00] VITALS: BP 116/67
[2022-08-10] MEDS: LACTULOSE 20G/30ML UDC PO SCH ×3 (06:00→21:20)
[2022-08-10] MEDS: CLONIDINE 0.2MG TABLET PO SCH ×3 (06:00→21:19)
[2022-08-10 06:06] LABS: BASOPHILS % 0.2 % (0.0-2.0); HEMATOCRIT. 26.6 % (42.0-52.0); HEMOGLOBIN. 8.7 g/dL (14.0-18.0); LYMPHOCYTES % 8.8 % (20.0-50.0); MEAN CORPUSCULAR HEMOGLOBIN 22.5 pg (28.0-32.0); MEAN CORPUSCULAR VOLUME 68.8 fL (80.0-94.0); MEAN PLATELET VOLUME 7.3 fl (7.4-10.4); MONOCYTES % 11.6 % (2.0-8.0); NEUTROPHILS % 79.4 % (40.0-76.0); PLATELET 315 x1000/uL (130-400); RED BLOOD CELL COUNT 3.87 mill/uL (4.7-6.1); RED CELL DISTRIBUTION WIDTH 19.1 % (11.6-14.6)
[2022-08-10 06:12] LABS: PHOSPHORUS 2.3 mg/dL (2.5-4.9)
[2022-08-10 08:18] LABS: BG CARBOXYHEMOGLOBIN 0.6 % (0.5-1.5); BG DEOXYHEMOGLOBIN 6.2 % (0.0-5.0); BG FRACTION INSPIRED OXYGEN 21; BG HCO3 ACT 24.6 mmol/L (22.0-26.0); BG METHEMOGLOBIN 0.3 % (0.0-1.5); BG OXYGEN SATURATION 93.7 % (92.0-98.5); BG OXYHEMOGLOBIN 92.9 % (94.0-97.0); BG PCO2 44.7 mmHg (35.0-45.0); BG PH 7.358 (7.350-7.450); BG PO2 68.9 mmHg (75.0-100.0); BG SAMPLE SITE RIGHT RADIAL; BG TOTAL HEMOGLOBIN 9.1 g/dL (12.0-18.0); BG VENT MODE ROOM AIR
[2022-08-10] MEDS: GUAIFENESIN 600MG ER TABLET PO SCH ×2 (09:18→21:20)
[2022-08-10] MEDS: AMLODIPINE 5MG TABLET PO SCH ×2 (09:18→21:19)
[2022-08-10 12:00] VITALS: BP 131/69
[2022-08-10] MEDS: POTASSIUM-SODIUM PHOSPHATE POWDER PACKET PO SCH ×2 (14:23→21:19)
[2022-08-10] MEDS: CLONIDINE 0.1MG TABLET PO PRN (14:23)
[2022-08-10 16:00] VITALS: BP 154/89
[2022-08-10 20:00] VITALS: BP 147/87
[2022-08-10] MEDS: ATORVASTATIN CALCIUM 20MG TABLET PO SCH (21:19)
[2022-08-10] MEDS: QUETIAPINE FUMARATE 25MG TABLET PO SCH (21:19)
[2022-08-11] VITALS (13 sets, daily range): BP systolic 118–148; BP diastolic 71–92
[2022-08-11] MEDS: CLONIDINE 0.2MG TABLET PO SCH ×3 (05:26→21:53)
[2022-08-11] MEDS: LACTULOSE 20G/30ML UDC PO SCH ×3 (05:26→21:53)
[2022-08-11 07:55] LABS: BASOPHILS % 0.3 % (0.0-2.0); EOSINOPHILS % 0.3 % (0.0-5.0); HEMATOCRIT. 26.6 % (42.0-52.0); HEMOGLOBIN. 8.3 g/dL (14.0-18.0); LYMPHOCYTES % 14.1 % (20.0-50.0); MEAN CORPUSCULAR HEMOGLOBIN 21.8 pg (28.0-32.0); MEAN CORPUSCULAR VOLUME 69.7 fL (80.0-94.0); MEAN PLATELET VOLUME 7.2 fl (7.4-10.4); MONOCYTES % 14.7 % (2.0-8.0); NEUTROPHILS % 70.6 % (40.0-76.0); PLATELET 337 x1000/uL (130-400); RED BLOOD CELL COUNT 3.82 mill/uL (4.7-6.1); RED CELL DISTRIBUTION WIDTH 19.5 % (11.6-14.6)
[2022-08-11 08:13] LABS: CHLORIDE 102 mEq/L (98-107)
[2022-08-11 08:23] LABS: PHOSPHORUS 1.7 mg/dL (2.5-4.9)
[2022-08-11] MEDS: GUAIFENESIN 600MG ER TABLET PO SCH ×2 (08:25→21:52)
[2022-08-11] MEDS: POTASSIUM-SODIUM PHOSPHATE POWDER PACKET PO SCH ×2 (08:25→17:45)
[2022-08-11] MEDS: AMLODIPINE 5MG TABLET PO SCH ×2 (08:29→21:53)
[2022-08-11 09:07] LABS: 7-AMINOCLONAZEPAM CONFIRM Negative (.); ALPRAZOLAM CONFIRM Negative (.); BENZODIAZEPINE SCREEN Negative ng/mL (Cutoff:20); CHLORDIAZEPOXIDE CONFIRM Negative (.); CLONAZEPAM CONFIRM Negative (.); DESMETHYLCHLORDIAZEPOXIDE Negative (.); DIAZEPAM CONFIRM Negative (.); FLURAZEPAM CONFIRM Negative (.); LORAZEPAM CONFIRM Negative (.); MIDAZOLAM CONFIRM Negative (.); OXAZEPAM CONFIRM Negative (.); TEMAZEPAM CONFIRM Negative (.); TRIAZOLAM CONFIRM Negative (.)
[2022-08-11] MEDS ORDERED: NAPH1POW3 PO (14:42)
[2022-08-11] MEDS ORDERED: AMLO5TAB88 PO (14:42)
[2022-08-11] MEDS ORDERED: ATOR20TA PO (14:42)
[2022-08-11] MEDS ORDERED: LACT10SO7 PO (14:42)
[2022-08-11] MEDS ORDERED: QUET25TA PO (14:42)
[2022-08-11] MEDS ORDERED: CLON0.2T PO (14:42)
[2022-08-11] MEDS ORDERED: HEPARIN SODIUM 1,000 UNIT/1ML VIAL IV NR ×3 (16:00→19:00)
[2022-08-11] MEDS ORDERED: HEPARIN SODIUM 1,000 UNIT/1ML VIAL IV ONE (16:00)
[2022-08-11] MEDS ORDERED: SODIUM PHOS,M-BASIC-D-BASIC 20 MM in DEXT 5% WATER 243.3333 ML IV NR (16:00)
[2022-08-11] MEDS ORDERED: EPOETIN ALFA-EPBX 4,000 UNIT/ML VIAL SUBCUT SCH (21:00)
[2022-08-11] MEDS: ATORVASTATIN CALCIUM 20MG TABLET PO SCH (21:52)
[2022-08-11] MEDS: QUETIAPINE FUMARATE 25MG TABLET PO SCH (21:53)
[2022-08-12] VITALS: BP 126/72
[2022-08-12 04:00] VITALS: BP 136/69
[2022-08-12 05:01] VITALS: BP 123/67
[2022-08-12] MEDS: LACTULOSE 20G/30ML UDC PO SCH ×2 (05:47→13:58)
[2022-08-12] MEDS: CLONIDINE 0.2MG TABLET PO SCH ×2 (05:47→14:06)
[2022-08-12 06:05] LABS: BASOPHILS % 0.1 % (0.0-2.0); EOSINOPHILS % 0.6 % (0.0-5.0); HEMATOCRIT. 23.9 % (42.0-52.0); HEMOGLOBIN. 7.9 g/dL (14.0-18.0); LYMPHOCYTES % 15.3 % (20.0-50.0); MEAN CORPUSCULAR HEMOGLOBIN 22.5 pg (28.0-32.0); MEAN CORPUSCULAR VOLUME 68.3 fL (80.0-94.0); MEAN PLATELET VOLUME 8.2 fl (7.4-10.4); MONOCYTES % 14.8 % (2.0-8.0); NEUTROPHILS % 69.2 % (40.0-76.0); PLATELET 283 x1000/uL (130-400); RED CELL DISTRIBUTION WIDTH 19.8 % (11.6-14.6)
[2022-08-12 08:00] VITALS: BP 147/91
[2022-08-12] MEDS ORDERED: MAGNESIUM 2 G PREMIX 50 ML IV SCH (09:30)
[2022-08-12] MEDS: AMLODIPINE 5MG TABLET PO SCH (09:47)
[2022-08-12] MEDS: GUAIFENESIN 600MG ER TABLET PO SCH (09:47)
[2022-08-12] MEDS: POTASSIUM-SODIUM PHOSPHATE POWDER PACKET PO SCH (09:47)
[2022-08-12 12:00] VITALS: BP 123/67
[2022-08-12] MEDS ORDERED: FLUOXETINE HCL 10 MG CAPSULE PO SCH (12:15)
[2022-08-12 16:00] VITALS: BP 144/88
== END 2022-08-12 16:30 | disposition home or self-care (01) | DRG 720 ==
LOC: ER 09:18 → MICUSO 11:50 → EDBEDREQ 11:54 → EDBEDREQTM 11:54 → 8WST 13:58 → 7EST 22:22
PROVIDERS: ADMIT Internal Medicine; ATTEND Internal Medicine
PROC: 5A1D70Z Performance of Urinary Filtration, Intermittent, Less than 6 Hours Per Day (ICD-10-PCS; 2022-07-30)
PROC: 30233N1 Transfusion of Nonautologous Red Blood Cells into Peripheral Vein, Percutaneous Approach (ICD-10-PCS; principal; 2022-08-01)
PROC: 5A1D70Z Performance of Urinary Filtration, Intermittent, Less than 6 Hours Per Day (ICD-10-PCS; 2022-08-01)
PROC: 5A1D70Z Performance of Urinary Filtration, Intermittent, Less than 6 Hours Per Day (ICD-10-PCS; 2022-08-02)
PROC: 5A1D70Z Performance of Urinary Filtration, Intermittent, Less than 6 Hours Per Day (ICD-10-PCS; 2022-08-03)
PROC: 0W9G3ZZ Drainage of Peritoneal Cavity, Percutaneous Approach (ICD-10-PCS; 2022-08-04)
PROC: 5A1D70Z Performance of Urinary Filtration, Intermittent, Less than 6 Hours Per Day (ICD-10-PCS; 2022-08-04)
PROC: 5A1D70Z Performance of Urinary Filtration, Intermittent, Less than 6 Hours Per Day (ICD-10-PCS; 2022-08-06)
PROC: 5A1D70Z Performance of Urinary Filtration, Intermittent, Less than 6 Hours Per Day (ICD-10-PCS; 2022-08-08)
PROC: 5A1D70Z Performance of Urinary Filtration, Intermittent, Less than 6 Hours Per Day (ICD-10-PCS; 2022-08-11)
DX: A41.89 Other specified sepsis (principal); J96.00 Acute respiratory failure, unspecified whether with hypoxia or hypercapnia; J12.82 Pneumonia due to coronavirus disease 2019; G92.8 Other toxic encephalopathy; I50.23 Acute on chronic systolic (congestive) heart failure; E72.20 Disorder of urea cycle metabolism, unspecified; N18.6 End stage renal disease; K76.82 Hepatic encephalopathy; U07.1 COVID-19; R18.8 Other ascites; I42.0 Dilated cardiomyopathy; E83.51 Hypocalcemia; I13.2 Hypertensive heart and chronic kidney disease with heart failure and with stage 5 chronic kidney disease, or end stage renal disease; D50.9 Iron deficiency anemia, unspecified; E87.5 Hyperkalemia; I45.10 Unspecified right bundle-branch block; I25.10 Atherosclerotic heart disease of native coronary artery without angina pectoris; E78.00 Pure hypercholesterolemia, unspecified; E87.29 Other acidosis; G47.00 Insomnia, unspecified; D63.1 Anemia in chronic kidney disease; E78.5 Hyperlipidemia, unspecified; F43.21 Adjustment disorder with depressed mood; F14.129 Cocaine abuse with intoxication, unspecified; Z99.2 Dependence on renal dialysis; Z79.51 Long term (current) use of inhaled steroids; Z91.199 Patient's noncompliance with other medical treatment and regimen due to unspecified reason; Z82.49 Family history of ischemic heart disease and other diseases of the circulatory system; Z79.899 Other long term (current) drug therapy
CPT/HCPCS: 36415; 36600; 49083; 71045; 74018; 76705; 78580; 80048; 80053; 80061; 80305; 80307; 82040; 82140; 82150; 82375; 82728; 82805; 83036; 83540; 83550; 83615; 83735; 83880; 84100; 84134; 84145; 84443; 84484; 85014; 85018; 85025; 85379; 86705; 86709; 86803; 86850; 86900; 86920; 87340; 87426; 90935; 93005; 93306; 93970; 94640; 94660; 97162; 97166; 99291; C1893; J0360; J0456; J0696; J0885; J1100; J1644; J1815; J1940; J3475; J3490; J7060; J8540; P9016

== ENCOUNTER 2022-08-14 10:53 | Inpatient (IN) | payer OTHER ==
[~2022-08-14] VITALS: Ht 172.7 cm; Wt 68.9 kg
[~2022-08-14 10:53] MED LIST changes: +AMLO5TAB88 PO; +ATOR20TA PO; -CARV12.545 MT; +CLON0.2T PO; -COR3 PO; -FURO40SO4 PO; -HYDR-4135 PO; -HYDR100T26 PO; +LACT10SO7 PO; -LOSA100T32 MT; +NAPH1POW3 PO; +QUET25TA PO; -SODI650T PO
[2022-08-14 13:55] LABS: HEMATOCRIT. 32.6 % (42.0-52.0); HEMOGLOBIN. 10.3 g/dL (14.0-18.0); MEAN CORPUSCULAR HEMOGLOBIN 21.9 pg (28.0-32.0); MEAN CORPUSCULAR VOLUME 69.2 fL (80.0-94.0); MEAN PLATELET VOLUME 6.8 fl (7.4-10.4); PLATELET 304 x1000/uL (130-400); RED BLOOD CELL COUNT 4.71 mill/uL (4.7-6.1); RED CELL DISTRIBUTION WIDTH 20.2 % (11.6-14.6)
[2022-08-14 14:04] LABS: CHLORIDE 99 mEq/L (98-107)
[2022-08-14 14:06] LABS: INR 1.1; PARTIAL THROMBOPLASTIN TIME 30.3 sec (23.4-31.0); PROTHROMBIN TIME 11.3 sec (9.6-11.0)
[2022-08-14 14:16] LABS: PLATELET ESTIMATE NORMAL
[2022-08-14] MEDS ORDERED: INSULIN REGULAR (HUMULIN R) 300UNITS/3ML VIAL IV NR (14:30)
[2022-08-14] MEDS ORDERED: DEXTROSE 50% WATER 50ML SYRINGE IV NR (14:30)
[2022-08-14] MEDS ORDERED: SODIUM BICARBONATE 8.4% 1 MEQ/ML 50ML SYR IV NR (14:30)
[2022-08-14] MEDS ORDERED: SODIUM POLYSTYRENE SULFONATE 15 G/60 ML BOT PO NR (14:30)
[2022-08-14] MEDS ORDERED: CLONIDINE 0.2MG TABLET PO ONE (17:15)
[2022-08-14] MEDS ORDERED: CLONIDINE 0.2MG TABLET PO NR (19:30)
[2022-08-14 20:35] VITALS: BP 175/95
[2022-08-14 21:42] VITALS: BP 175/95
[2022-08-14] MEDS ORDERED: NALOXONE HCL 0.4MG/ML VIAL IV PRN (22:30)
[2022-08-14] MEDS ORDERED: HYDROCODONE/ACETAMINOPHEN 5/325MG TABLET PO PRN (22:30)
[2022-08-14] MEDS: QUETIAPINE FUMARATE 25MG TABLET PO SCH (23:53)
[2022-08-14] MEDS: CLONIDINE 0.2MG TABLET PO SCH (23:54)
[2022-08-15] VITALS (14 sets, daily range): BP systolic 108–153; BP diastolic 72–95
[2022-08-15] MEDS: HYDRALAZINE HCL 50MG TABLET PO SCH ×2 (05:53→13:04)
[2022-08-15] MEDS: CLONIDINE 0.2MG TABLET PO SCH (05:54)
[2022-08-15] MEDS ORDERED: AMLODIPINE 10MG TABLET PO SCH (09:00)
[2022-08-15] MEDS ORDERED: ONDANSETRON HCL 4MG/2ML INJ IV PRN (09:15)
[2022-08-15] MEDS: TAMSULOSIN HCL 0.4MG SR CAPSULE PO SCH (09:23)
[2022-08-15] MEDS ORDERED: IPRATROPIUM BROMIDE (0.02%) 0.5MG/2.5ML NEB HHN PRN (10:30)
[2022-08-15] MEDS ORDERED: ALBUTEROL (0.083%) 2.5MG/3ML NEB HHN PRN (10:30)
[2022-08-15] MEDS ORDERED: IPRATROPIUM/ALBUTEROL 0.5-3(2.5)MG/3ML NEB HHN PRN (10:30)
[2022-08-15 11:28] LABS: BASOPHILS % 0.5 % (0.0-2.0); EOSINOPHILS % 1.2 % (0.0-5.0); HEMATOCRIT. 24.3 % (42.0-52.0); HEMOGLOBIN. 7.9 g/dL (14.0-18.0); LYMPHOCYTES % 11.7 % (20.0-50.0); MEAN CORPUSCULAR HEMOGLOBIN 22.1 pg (28.0-32.0); MEAN CORPUSCULAR VOLUME 68.2 fL (80.0-94.0); MEAN PLATELET VOLUME 7.1 fl (7.4-10.4); MONOCYTES % 14.5 % (2.0-8.0); NEUTROPHILS % 72.1 % (40.0-76.0); PLATELET 231 x1000/uL (130-400); RED BLOOD CELL COUNT 3.57 mill/uL (4.7-6.1)
[2022-08-15 19:45] LABS: TOTAL IRON BINDING CAPACITY 296 ug/dL (250-450)
[2022-08-15 20:04] LABS: HEPATITIS B SURFACE ANTIGEN NEGATIVE
[2022-08-16] VITALS: BP 143/93
[2022-08-16] MEDS: ATORVASTATIN CALCIUM 20MG TABLET PO SCH ×2 (00:51→20:42)
[2022-08-16] MEDS: HYDRALAZINE HCL 50MG TABLET PO SCH ×4 (00:51→20:41)
[2022-08-16] MEDS: QUETIAPINE FUMARATE 25MG TABLET PO SCH ×2 (00:51→20:42)
[2022-08-16] MEDS: CARVEDILOL 6.25 MG TABLET PO SCH ×3 (00:51→20:41)
[2022-08-16] MEDS: EPOETIN ALFA-EPBX 4,000 UNIT/ML VIAL SUBCUT SCH (00:52)
[2022-08-16 04:00] VITALS: BP 142/86
[2022-08-16 08:00] VITALS: BP 153/94
[2022-08-16] MEDS ORDERED: LOSARTAN POTASSIUM 50 MG TABLET PO SCH (09:00)
[2022-08-16] MEDS ORDERED: AMLODIPINE 5MG TABLET PO SCH (09:00)
[2022-08-16] MEDS: TAMSULOSIN HCL 0.4MG SR CAPSULE PO SCH (09:14)
[2022-08-16 10:11] LABS: HEMOGLOBIN. 7.8 g/dL (14.0-18.0); MEAN CORPUSCULAR HEMOGLOBIN 22.1 pg (28.0-32.0); MEAN CORPUSCULAR VOLUME 67.9 fL (80.0-94.0); MEAN PLATELET VOLUME 7.2 fl (7.4-10.4); PLATELET 222 x1000/uL (130-400); RED BLOOD CELL COUNT 3.53 mill/uL (4.7-6.1); RED CELL DISTRIBUTION WIDTH 20.1 % (11.6-14.6)
[2022-08-16 10:34] LABS: PHOSPHORUS 4.4 mg/dL (2.5-4.9)
[2022-08-16 12:00] VITALS: BP 146/89
[2022-08-16] MEDS: IRON SUCROSE COMPLEX 100 MG/5 ML ML IV SCH (14:45)
[2022-08-16 16:00] VITALS: BP 138/75
[2022-08-16 16:34] LABS: PLATELET ESTIMATE NORMAL
[2022-08-16 20:00] VITALS: BP 157/93
[2022-08-16] MEDS: AMLODIPINE 5MG TABLET PO SCH (20:50)
[2022-08-17 04:00] VITALS: BP 138/82
[2022-08-17] MEDS: HYDRALAZINE HCL 50MG TABLET PO SCH (05:17)
[2022-08-17 06:23] LABS: HEMATOCRIT. 26.7 % (42.0-52.0); HEMOGLOBIN. 8.6 g/dL (14.0-18.0); MEAN CORPUSCULAR HEMOGLOBIN 22.1 pg (28.0-32.0); MEAN CORPUSCULAR VOLUME 68.5 fL (80.0-94.0); MEAN PLATELET VOLUME 7.3 fl (7.4-10.4); PLATELET 221 x1000/uL (130-400); RED CELL DISTRIBUTION WIDTH 20.5 % (11.6-14.6)
[2022-08-17 08:00] VITALS: BP 152/104
[2022-08-17] MEDS: AMLODIPINE 5MG TABLET PO SCH ×2 (09:02→22:00)
[2022-08-17] MEDS: TAMSULOSIN HCL 0.4MG SR CAPSULE PO SCH (09:02)
[2022-08-17] MEDS: CARVEDILOL 6.25 MG TABLET PO SCH (09:03)
[2022-08-17] MEDS: IRON SUCROSE COMPLEX 100 MG/5 ML ML IV SCH (09:04)
[2022-08-17 12:00] VITALS: BP 143/91
[2022-08-17] MEDS: HYDRALAZINE HCL 100MG TABLET PO SCH ×2 (14:43→22:00)
[2022-08-17 16:00] VITALS: BP 148/100
[2022-08-17 16:13] LABS: PLATELET ESTIMATE NORMAL
[2022-08-17] MEDS ORDERED: CEFTRIAXONE 1GM PREMIX 50 ML IV SCH (17:45)
[2022-08-17 20:00] VITALS: BP 154/93
[2022-08-17] MEDS ORDERED: DOXAZOSIN MESYLATE 2MG TABLET PO SCH (21:00)
[2022-08-17] MEDS: CEFTRIAXONE 1,000 MG in DEXTROSE 5% WATER 50 ML IV SCH (21:43)
[2022-08-17] MEDS: ATORVASTATIN CALCIUM 20MG TABLET PO SCH (21:43)
[2022-08-17] MEDS: CARVEDILOL 12.5MG TABLET PO SCH (21:44)
[2022-08-17] MEDS: QUETIAPINE FUMARATE 25MG TABLET PO SCH (22:00)
[2022-08-18] VITALS (13 sets, daily range): BP systolic 110–153; BP diastolic 66–100
[2022-08-18] MEDS: HYDRALAZINE HCL 100MG TABLET PO SCH ×3 (05:35→21:31)
[2022-08-18 06:36] LABS: HEMATOCRIT. 23.8 % (42.0-52.0); HEMOGLOBIN. 7.8 g/dL (14.0-18.0); MEAN CORPUSCULAR HEMOGLOBIN 22.2 pg (28.0-32.0); MEAN CORPUSCULAR VOLUME 67.6 fL (80.0-94.0); MEAN PLATELET VOLUME 8.6 fl (7.4-10.4); PLATELET 207 x1000/uL (130-400); RED BLOOD CELL COUNT 3.52 mill/uL (4.7-6.1); RED CELL DISTRIBUTION WIDTH 20.3 % (11.6-14.6)
[2022-08-18] MEDS: AMLODIPINE 5MG TABLET PO SCH ×2 (09:25→21:32)
[2022-08-18] MEDS: IRON SUCROSE COMPLEX 100 MG/5 ML ML IV SCH (09:25)
[2022-08-18] MEDS: CARVEDILOL 12.5MG TABLET PO SCH ×2 (09:25→21:31)
[2022-08-18] MEDS: CEFTRIAXONE 1,000 MG in DEXTROSE 5% WATER 50 ML IV SCH (21:30)
[2022-08-18] MEDS: DOXAZOSIN MESYLATE 2MG TABLET PO SCH (21:30)
[2022-08-18] MEDS: ATORVASTATIN CALCIUM 20MG TABLET PO SCH (21:31)
[2022-08-18] MEDS: QUETIAPINE FUMARATE 25MG TABLET PO SCH (21:32)
[2022-08-18] MEDS: EPOETIN ALFA-EPBX 4,000 UNIT/ML VIAL SUBCUT SCH (21:45)
[2022-08-19] VITALS: BP 108/62
[2022-08-19 04:00] VITALS: BP 137/88
[2022-08-19] MEDS: HYDRALAZINE HCL 100MG TABLET PO SCH ×3 (05:59→20:59)
[2022-08-19 08:00] VITALS: BP 119/79
[2022-08-19 09:51] LABS: PLATELET ESTIMATE NORMAL
[2022-08-19] MEDS: IRON SUCROSE COMPLEX 100 MG/5 ML ML IV SCH (10:28)
[2022-08-19] MEDS: AMLODIPINE 5MG TABLET PO SCH ×2 (10:29→20:58)
[2022-08-19] MEDS: CARVEDILOL 12.5MG TABLET PO SCH ×2 (10:29→20:58)
[2022-08-19 12:00] VITALS: BP 120/79
[2022-08-19 16:00] VITALS: BP 126/85
[2022-08-19 20:00] VITALS: BP 129/76
[2022-08-19] MEDS: CEFTRIAXONE 1,000 MG in DEXTROSE 5% WATER 50 ML IV SCH (20:57)
[2022-08-19] MEDS: ATORVASTATIN CALCIUM 20MG TABLET PO SCH (20:58)
[2022-08-19] MEDS: DOXAZOSIN MESYLATE 2MG TABLET PO SCH (20:59)
[2022-08-19] MEDS: QUETIAPINE FUMARATE 25MG TABLET PO SCH (20:59)
[2022-08-20] VITALS (12 sets, daily range): BP systolic 110–150; BP diastolic 69–98
[2022-08-20] MEDS: HYDRALAZINE HCL 100MG TABLET PO SCH ×3 (05:06→20:32)
[2022-08-20 07:59] LABS: HEMATOCRIT. 25.7 % (42.0-52.0); HEMOGLOBIN. 8.2 g/dL (14.0-18.0); MEAN CORPUSCULAR HEMOGLOBIN 22.1 pg (28.0-32.0); MEAN CORPUSCULAR VOLUME 69.2 fL (80.0-94.0); MEAN PLATELET VOLUME 8.3 fl (7.4-10.4); PLATELET 198 x1000/uL (130-400); RED BLOOD CELL COUNT 3.71 mill/uL (4.7-6.1); RED CELL DISTRIBUTION WIDTH 20.6 % (11.6-14.6)
[2022-08-20] MEDS: CARVEDILOL 12.5MG TABLET PO SCH ×2 (09:00→20:32)
[2022-08-20 14:01] LABS: PLATELET ESTIMATE NORMAL
[2022-08-20] MEDS: DOXAZOSIN MESYLATE 2MG TABLET PO SCH (20:31)
[2022-08-20] MEDS: QUETIAPINE FUMARATE 25MG TABLET PO SCH (20:31)
[2022-08-20] MEDS: EPOETIN ALFA-EPBX 4,000 UNIT/ML VIAL SUBCUT SCH (20:32)
[2022-08-20] MEDS: ATORVASTATIN CALCIUM 20MG TABLET PO SCH (20:32)
[2022-08-20] MEDS: CEFTRIAXONE 1,000 MG in DEXTROSE 5% WATER 50 ML IV SCH (20:33)
[2022-08-21] VITALS: BP 125/65
[2022-08-21 04:00] VITALS: BP 149/89
[2022-08-21] MEDS: HYDRALAZINE HCL 100MG TABLET PO SCH ×3 (05:55→21:26)
[2022-08-21 08:00] VITALS: BP 156/80
[2022-08-21] MEDS: CARVEDILOL 12.5MG TABLET PO SCH ×2 (09:16→21:27)
[2022-08-21] MEDS: AMLODIPINE 5MG TABLET PO SCH (09:17)
[2022-08-21 12:00] VITALS: BP 132/88
[2022-08-21 20:00] VITALS: BP 146/84
[2022-08-21] MEDS: CEFTRIAXONE 1,000 MG in DEXTROSE 5% WATER 50 ML IV SCH (21:25)
[2022-08-21] MEDS: QUETIAPINE FUMARATE 25MG TABLET PO SCH (21:26)
[2022-08-21] MEDS: DOXAZOSIN MESYLATE 2MG TABLET PO SCH (21:26)
[2022-08-21] MEDS: ATORVASTATIN CALCIUM 20MG TABLET PO SCH (21:27)
[2022-08-22] VITALS (10 sets, daily range): BP systolic 122–145; BP diastolic 63–89
[2022-08-22] MEDS: HYDRALAZINE HCL 100MG TABLET PO SCH ×3 (05:45→21:03)
[2022-08-22 07:08] LABS: HEMATOCRIT. 24.7 % (42.0-52.0); MEAN CORPUSCULAR HEMOGLOBIN 22.2 pg (28.0-32.0); MEAN CORPUSCULAR VOLUME 68.3 fL (80.0-94.0); MEAN PLATELET VOLUME 7.6 fl (7.4-10.4); PLATELET 205 x1000/uL (130-400); RED BLOOD CELL COUNT 3.62 mill/uL (4.7-6.1); RED CELL DISTRIBUTION WIDTH 20.9 % (11.6-14.6)
[2022-08-22 08:11] LABS: PHOSPHORUS 5.2 mg/dL (2.5-4.9)
[2022-08-22] MEDS: AMLODIPINE 5MG TABLET PO SCH (09:00)
[2022-08-22] MEDS: CARVEDILOL 12.5MG TABLET PO SCH ×2 (09:00→21:03)
[2022-08-22 11:06] LABS: PLATELET ESTIMATE NORMAL
[2022-08-22] MEDS: CEFTRIAXONE 1,000 MG in DEXTROSE 5% WATER 50 ML IV SCH (21:01)
[2022-08-22] MEDS: ATORVASTATIN CALCIUM 20MG TABLET PO SCH (21:02)
[2022-08-22] MEDS: QUETIAPINE FUMARATE 25MG TABLET PO SCH (21:02)
[2022-08-22] MEDS: EPOETIN ALFA-EPBX 4,000 UNIT/ML VIAL SUBCUT SCH (21:02)
[2022-08-22] MEDS: DOXAZOSIN MESYLATE 2MG TABLET PO SCH (21:03)
[2022-08-23] VITALS: BP 138/71
[2022-08-23 04:00] VITALS: BP 143/73
[2022-08-23] MEDS: HYDRALAZINE HCL 100MG TABLET PO SCH ×3 (06:00→22:14)
[2022-08-23 08:00] VITALS: BP 141/81
[2022-08-23] MEDS: AMLODIPINE 5MG TABLET PO SCH (10:46)
[2022-08-23] MEDS: CARVEDILOL 12.5MG TABLET PO SCH ×2 (10:46→22:14)
[2022-08-23 12:00] VITALS: BP 145/85
[2022-08-23 16:00] VITALS: BP 152/97
[2022-08-23 20:00] VITALS: BP 142/83
[2022-08-23] MEDS: ATORVASTATIN CALCIUM 20MG TABLET PO SCH (22:12)
[2022-08-23] MEDS: QUETIAPINE FUMARATE 25MG TABLET PO SCH (22:14)
[2022-08-23] MEDS: DOXAZOSIN MESYLATE 2MG TABLET PO SCH (23:15)
[2022-08-24 04:00] VITALS: BP 111/57
[2022-08-24] MEDS: HYDRALAZINE HCL 100MG TABLET PO SCH ×3 (05:57→21:24)
[2022-08-24 07:05] LABS: BASOPHILS % 0.5 % (0.0-2.0); EOSINOPHILS % 1.8 % (0.0-5.0); HEMATOCRIT. 24.6 % (42.0-52.0); HEMOGLOBIN. 8.1 g/dL (14.0-18.0); MEAN CORPUSCULAR HEMOGLOBIN 22.8 pg (28.0-32.0); MEAN CORPUSCULAR VOLUME 69.1 fL (80.0-94.0); MEAN PLATELET VOLUME 7.5 fl (7.4-10.4); MONOCYTES % 16.3 % (2.0-8.0); NEUTROPHILS % 51.4 % (40.0-76.0); PLATELET 204 x1000/uL (130-400); RED BLOOD CELL COUNT 3.56 mill/uL (4.7-6.1)
[2022-08-24 08:00] VITALS: BP 148/86
[2022-08-24 08:05] LABS: PHOSPHORUS 4.1 mg/dL (2.5-4.9)
[2022-08-24] MEDS: AMLODIPINE 5MG TABLET PO SCH (09:38)
[2022-08-24] MEDS: CARVEDILOL 12.5MG TABLET PO SCH ×2 (09:39→21:23)
[2022-08-24] MEDS ORDERED: SODIUM POLYSTYRENE SULFONATE 15 G/60 ML BOT PO NR (10:15)
[2022-08-24 12:00] VITALS: BP 153/83
[2022-08-24 16:00] VITALS: BP 158/90
[2022-08-24 20:00] VITALS: BP 157/86
[2022-08-24] MEDS: DOXAZOSIN MESYLATE 2MG TABLET PO SCH (21:23)
[2022-08-24] MEDS: QUETIAPINE FUMARATE 25MG TABLET PO SCH (21:23)
[2022-08-24] MEDS: ATORVASTATIN CALCIUM 20MG TABLET PO SCH (21:23)
[2022-08-25] VITALS (14 sets, daily range): BP systolic 122–159; BP diastolic 68–100
[2022-08-25] MEDS: HYDRALAZINE HCL 100MG TABLET PO SCH ×3 (05:48→22:00)
[2022-08-25 07:10] LABS: PHOSPHORUS 4.8 mg/dL (2.5-4.9)
[2022-08-25] MEDS: AMLODIPINE 5MG TABLET PO SCH ×2 (08:58→16:35)
[2022-08-25] MEDS: CARVEDILOL 12.5MG TABLET PO SCH ×2 (08:58→22:06)
[2022-08-25] MEDS ORDERED: MAGNESIUM 2 G PREMIX 50 ML IV NR (10:00)
[2022-08-25] MEDS: EPOETIN ALFA-EPBX 4,000 UNIT/ML VIAL SUBCUT SCH (22:05)
[2022-08-25] MEDS: QUETIAPINE FUMARATE 25MG TABLET PO SCH (22:05)
[2022-08-25] MEDS: ATORVASTATIN CALCIUM 20MG TABLET PO SCH (22:05)
[2022-08-25] MEDS: DOXAZOSIN MESYLATE 2MG TABLET PO SCH (22:06)
[2022-08-26] MEDS: HYDRALAZINE HCL 100MG TABLET PO SCH ×3 (05:53→22:13)
[2022-08-26 06:00] VITALS: BP 149/91
[2022-08-26 07:19] LABS: HEMOGLOBIN. 8.3 g/dL (14.0-18.0); MEAN CORPUSCULAR VOLUME 69.3 fL (80.0-94.0); MEAN PLATELET VOLUME 8.3 fl (7.4-10.4); PLATELET 202 x1000/uL (130-400); RED BLOOD CELL COUNT 3.61 mill/uL (4.7-6.1); RED CELL DISTRIBUTION WIDTH 21.2 % (11.6-14.6)
[2022-08-26 08:00] VITALS: BP 139/87
[2022-08-26] MEDS: CARVEDILOL 12.5MG TABLET PO SCH ×2 (09:55→20:23)
[2022-08-26] MEDS: AMLODIPINE 5MG TABLET PO SCH ×2 (09:56→17:52)
[2022-08-26 12:00] VITALS: BP 144/80
[2022-08-26 16:00] VITALS: BP 140/80
[2022-08-26 20:00] VITALS: BP 143/83
[2022-08-26] MEDS: ATORVASTATIN CALCIUM 20MG TABLET PO SCH (20:23)
[2022-08-26] MEDS: DOXAZOSIN MESYLATE 2MG TABLET PO SCH (20:23)
[2022-08-26] MEDS: QUETIAPINE FUMARATE 25MG TABLET PO SCH (20:23)
[2022-08-26 21:15] LABS: PLATELET ESTIMATE NORMAL
[2022-08-26 22:14] VITALS: BP 137/82
[2022-08-27] VITALS (9 sets, daily range): BP systolic 124–151; BP diastolic 70–94
[2022-08-27] MEDS: HYDRALAZINE HCL 100MG TABLET PO SCH ×3 (06:01→22:00)
[2022-08-27 08:37] LABS: BASOPHILS % 0.3 % (0.0-2.0); EOSINOPHILS % 2.8 % (0.0-5.0); HEMATOCRIT. 25.1 % (42.0-52.0); HEMOGLOBIN. 8.1 g/dL (14.0-18.0); LYMPHOCYTES % 35.8 % (20.0-50.0); MEAN CORPUSCULAR HEMOGLOBIN 22.5 pg (28.0-32.0); MEAN CORPUSCULAR VOLUME 69.9 fL (80.0-94.0); MEAN PLATELET VOLUME 7.3 fl (7.4-10.4); MONOCYTES % 14.5 % (2.0-8.0); NEUTROPHILS % 46.6 % (40.0-76.0); PLATELET 202 x1000/uL (130-400); RED BLOOD CELL COUNT 3.59 mill/uL (4.7-6.1); RED CELL DISTRIBUTION WIDTH 22.4 % (11.6-14.6)
[2022-08-27] MEDS: CARVEDILOL 12.5MG TABLET PO SCH ×2 (09:00→22:56)
[2022-08-27] MEDS: AMLODIPINE 5MG TABLET PO SCH (15:17)
[2022-08-27] MEDS: QUETIAPINE FUMARATE 25MG TABLET PO SCH (22:56)
[2022-08-27] MEDS: EPOETIN ALFA-EPBX 4,000 UNIT/ML VIAL SUBCUT SCH (22:57)
[2022-08-27] MEDS: ATORVASTATIN CALCIUM 20MG TABLET PO SCH (22:57)
[2022-08-27] MEDS: DOXAZOSIN MESYLATE 4MG TABLET PO SCH (23:03)
[2022-08-28] VITALS: BP 173/97
[2022-08-28 04:00] VITALS: BP 139/88
[2022-08-28] MEDS: HYDRALAZINE HCL 100MG TABLET PO SCH ×3 (06:55→22:00)
[2022-08-28 08:00] VITALS: BP 159/97
[2022-08-28] MEDS: CARVEDILOL 12.5MG TABLET PO SCH ×2 (10:09→22:00)
[2022-08-28] MEDS: AMLODIPINE 5MG TABLET PO SCH ×2 (10:10→16:44)
[2022-08-28 12:00] VITALS: BP_SYST 146; BP_SYST 153; BP_DIAS 81; BP_DIAS 88
[2022-08-28] MEDS ORDERED: SODIUM BICARBONATE 4% (2.4MEQ) 5ML VIAL IV ONE (13:16)
[2022-08-28] MEDS ORDERED: LIDOCAINE HCL 1% 10 MG/ML 10ML VIAL ONE (13:17)
[2022-08-28 16:00] VITALS: BP 150/88
[2022-08-28] MEDS: ACETAMINOPHEN 325MG TABLET PO PRN ×2 (16:44→22:01)
[2022-08-28 20:00] VITALS: BP 154/87
[2022-08-28] MEDS: DOXAZOSIN MESYLATE 4MG TABLET PO SCH (21:59)
[2022-08-28] MEDS: QUETIAPINE FUMARATE 25MG TABLET PO SCH (21:59)
[2022-08-28] MEDS: ATORVASTATIN CALCIUM 20MG TABLET PO SCH (22:00)
[2022-08-29] VITALS (18 sets, daily range): BP systolic 117–155; BP diastolic 64–98
[2022-08-29] MEDS: HYDRALAZINE HCL 100MG TABLET PO SCH ×3 (06:09→21:16)
[2022-08-29] MEDS: ACETAMINOPHEN 325MG TABLET PO PRN ×2 (06:10→11:02)
[2022-08-29 06:32] LABS: BASOPHILS % 0.4 % (0.0-2.0); EOSINOPHILS % 2.7 % (0.0-5.0); HEMATOCRIT. 25.6 % (42.0-52.0); HEMOGLOBIN. 8.2 g/dL (14.0-18.0); LYMPHOCYTES % 30.8 % (20.0-50.0); MEAN CORPUSCULAR HEMOGLOBIN 22.2 pg (28.0-32.0); MEAN CORPUSCULAR VOLUME 69.4 fL (80.0-94.0); MEAN PLATELET VOLUME 8.3 fl (7.4-10.4); MONOCYTES % 14.5 % (2.0-8.0); NEUTROPHILS % 51.6 % (40.0-76.0); PLATELET 203 x1000/uL (130-400); RED BLOOD CELL COUNT 3.69 mill/uL (4.7-6.1); RED CELL DISTRIBUTION WIDTH 22.1 % (11.6-14.6)
[2022-08-29 06:49] LABS: INR 1.1; PARTIAL THROMBOPLASTIN TIME 28.4 sec (23.4-31.0); PROTHROMBIN TIME 11.7 sec (9.6-11.0)
[2022-08-29] MEDS: CARVEDILOL 12.5MG TABLET PO SCH ×2 (09:00→21:17)
[2022-08-29] MEDS: AMLODIPINE 5MG TABLET PO SCH ×2 (09:00→17:12)
[2022-08-29] MEDS: QUETIAPINE FUMARATE 25MG TABLET PO SCH (21:17)
[2022-08-29] MEDS: ATORVASTATIN CALCIUM 20MG TABLET PO SCH (21:18)
[2022-08-29] MEDS: DOXAZOSIN MESYLATE 4MG TABLET PO SCH (21:18)
[2022-08-30] VITALS: BP 140/60
[2022-08-30 04:00] VITALS: BP 153/85
[2022-08-30] MEDS: HYDRALAZINE HCL 100MG TABLET PO SCH ×3 (06:05→22:10)
[2022-08-30 08:00] VITALS: BP 149/89
[2022-08-30] MEDS: AMLODIPINE 5MG TABLET PO SCH ×2 (08:44→17:34)
[2022-08-30] MEDS: CARVEDILOL 12.5MG TABLET PO SCH ×2 (08:45→22:10)
[2022-08-30 12:00] VITALS: BP 155/94
[2022-08-30] MEDS: ACETAMINOPHEN 325MG TABLET PO PRN (15:11)
[2022-08-30 16:00] VITALS: BP 141/91
[2022-08-30 20:12] VITALS: BP 143/89
[2022-08-30] MEDS: ATORVASTATIN CALCIUM 20MG TABLET PO SCH (22:09)
[2022-08-30] MEDS: QUETIAPINE FUMARATE 25MG TABLET PO SCH (22:09)
[2022-08-30] MEDS: DOXAZOSIN MESYLATE 4MG TABLET PO SCH (22:11)
[2022-08-31] VITALS (11 sets, daily range): BP systolic 130–153; BP diastolic 51–93
[2022-08-31] MEDS: HYDRALAZINE HCL 100MG TABLET PO SCH ×3 (05:04→22:00)
[2022-08-31] MEDS: CARVEDILOL 12.5MG TABLET PO SCH ×2 (08:38→21:00)
[2022-08-31] MEDS: AMLODIPINE 5MG TABLET PO SCH ×2 (08:38→16:36)
[2022-08-31 10:04] LABS: HEMATOCRIT. 25.6 % (42.0-52.0); HEMOGLOBIN. 8.3 g/dL (14.0-18.0); MEAN CORPUSCULAR HEMOGLOBIN 22.6 pg (28.0-32.0); MEAN CORPUSCULAR VOLUME 69.2 fL (80.0-94.0); MEAN PLATELET VOLUME 8.3 fl (7.4-10.4); PLATELET 203 x1000/uL (130-400); RED CELL DISTRIBUTION WIDTH 22.8 % (11.6-14.6)
[2022-08-31 10:31] LABS: PHOSPHORUS 4.5 mg/dL (2.5-4.9)
[2022-08-31 12:37] LABS: PLATELET ESTIMATE NORMAL
[2022-08-31] MEDS: DOXAZOSIN MESYLATE 4MG TABLET PO SCH (21:00)
[2022-09-01] VITALS: BP 157/86
[2022-09-01] MEDS: ATORVASTATIN CALCIUM 20MG TABLET PO SCH ×2 (02:37→21:03)
[2022-09-01] MEDS: QUETIAPINE FUMARATE 25MG TABLET PO SCH ×2 (02:37→21:04)
[2022-09-01 04:00] VITALS: BP 151/82
[2022-09-01] MEDS: HYDRALAZINE HCL 100MG TABLET PO SCH ×3 (06:28→21:03)
[2022-09-01 07:08] LABS: HEMATOCRIT. 26.9 % (42.0-52.0); HEMOGLOBIN. 8.7 g/dL (14.0-18.0); MEAN CORPUSCULAR HEMOGLOBIN 22.6 pg (28.0-32.0); MEAN CORPUSCULAR VOLUME 69.5 fL (80.0-94.0); MEAN PLATELET VOLUME 8.3 fl (7.4-10.4); PLATELET 205 x1000/uL (130-400); RED BLOOD CELL COUNT 3.87 mill/uL (4.7-6.1); RED CELL DISTRIBUTION WIDTH 21.9 % (11.6-14.6)
[2022-09-01 08:00] VITALS: BP 161/88
[2022-09-01] MEDS: AMLODIPINE 5MG TABLET PO SCH ×2 (08:37→16:18)
[2022-09-01] MEDS: CARVEDILOL 12.5MG TABLET PO SCH ×2 (08:38→21:03)
[2022-09-01 08:43] LABS: PHOSPHORUS 4.9 mg/dL (2.5-4.9)
[2022-09-01 12:00] VITALS: BP 153/95
[2022-09-01 16:00] VITALS: BP 138/86
[2022-09-01] MEDS: ACETAMINOPHEN 325MG TABLET PO PRN (16:19)
[2022-09-01 17:31] LABS: PLATELET ESTIMATE NORMAL
[2022-09-01 20:00] VITALS: BP 140/80
[2022-09-01] MEDS: EPOETIN ALFA-EPBX 4,000 UNIT/ML VIAL SUBCUT SCH (21:02)
[2022-09-01] MEDS: DOXAZOSIN MESYLATE 4MG TABLET PO SCH (21:03)
[2022-09-02] VITALS (15 sets, daily range): BP systolic 112–151; BP diastolic 72–91
[2022-09-02] MEDS: HYDRALAZINE HCL 100MG TABLET PO SCH ×3 (05:17→21:36)
[2022-09-02] MEDS: CARVEDILOL 12.5MG TABLET PO SCH ×2 (09:00→21:37)
[2022-09-02] MEDS: AMLODIPINE 5MG TABLET PO SCH ×2 (09:00→17:00)
[2022-09-02] MEDS: ACETAMINOPHEN 325MG TABLET PO PRN (11:21)
[2022-09-02] MEDS: DOXAZOSIN MESYLATE 4MG TABLET PO SCH (21:36)
[2022-09-02] MEDS: ATORVASTATIN CALCIUM 20MG TABLET PO SCH (21:36)
[2022-09-02] MEDS: QUETIAPINE FUMARATE 25MG TABLET PO SCH (21:37)
[2022-09-03] VITALS: BP 129/77
[2022-09-03 04:00] VITALS: BP 136/83
[2022-09-03] MEDS: HYDRALAZINE HCL 100MG TABLET PO SCH ×3 (05:53→23:00)
[2022-09-03 08:00] VITALS: BP 139/84
[2022-09-03] MEDS: CARVEDILOL 12.5MG TABLET PO SCH ×2 (09:00→23:02)
[2022-09-03] MEDS: AMLODIPINE 5MG TABLET PO SCH ×2 (09:00→17:00)
[2022-09-03 12:00] VITALS: BP 144/83
[2022-09-03] MEDS: ACETAMINOPHEN 325MG TABLET PO PRN (15:48)
[2022-09-03 16:00] VITALS: BP 139/80
[2022-09-03 20:00] VITALS: BP 139/82
[2022-09-03] MEDS: EPOETIN ALFA-EPBX 4,000 UNIT/ML VIAL SUBCUT SCH (22:58)
[2022-09-03] MEDS: ATORVASTATIN CALCIUM 20MG TABLET PO SCH (22:59)
[2022-09-03] MEDS: QUETIAPINE FUMARATE 25MG TABLET PO SCH (23:01)
[2022-09-03] MEDS: DOXAZOSIN MESYLATE 4MG TABLET PO SCH (23:01)
[2022-09-04] VITALS (15 sets, daily range): BP systolic 126–144; BP diastolic 66–84
[2022-09-04] MEDS: HYDRALAZINE HCL 100MG TABLET PO SCH ×3 (05:22→21:16)
[2022-09-04 06:30] LABS: HEMOGLOBIN. 8.8 g/dL (14.0-18.0); MEAN CORPUSCULAR HEMOGLOBIN 22.8 pg (28.0-32.0); MEAN CORPUSCULAR VOLUME 69.6 fL (80.0-94.0); MEAN PLATELET VOLUME 8.1 fl (7.4-10.4); PLATELET 223 x1000/uL (130-400); RED BLOOD CELL COUNT 3.88 mill/uL (4.7-6.1)
[2022-09-04 07:42] LABS: PLATELET ESTIMATE NORMAL
[2022-09-04 07:43] LABS: PHOSPHORUS 5.2 mg/dL (2.5-4.9)
[2022-09-04] MEDS: AMLODIPINE 5MG TABLET PO SCH ×2 (08:24→16:39)
[2022-09-04] MEDS: CARVEDILOL 12.5MG TABLET PO SCH ×2 (08:24→21:16)
[2022-09-04] MEDS: ACETAMINOPHEN 325MG TABLET PO PRN (14:56)
[2022-09-04] MEDS: DOXAZOSIN MESYLATE 4MG TABLET PO SCH (21:15)
[2022-09-04] MEDS: ATORVASTATIN CALCIUM 20MG TABLET PO SCH (21:15)
[2022-09-04] MEDS: QUETIAPINE FUMARATE 25MG TABLET PO SCH (21:16)
[2022-09-05] VITALS: BP 131/71
[2022-09-05] MEDS: ACETAMINOPHEN 325MG TABLET PO PRN ×2 (01:31→05:39)
[2022-09-05 04:00] VITALS: BP 159/95
[2022-09-05] MEDS: HYDRALAZINE HCL 100MG TABLET PO SCH ×3 (05:38→23:18)
[2022-09-05 07:44] VITALS: BP 138/80
[2022-09-05] MEDS: AMLODIPINE 5MG TABLET PO SCH ×2 (08:35→17:50)
[2022-09-05] MEDS: CARVEDILOL 12.5MG TABLET PO SCH ×2 (08:35→21:27)
[2022-09-05 11:52] VITALS: BP 144/87
[2022-09-05 15:46] VITALS: BP 145/85
[2022-09-05 20:00] VITALS: BP 148/87
[2022-09-05] MEDS: DOXAZOSIN MESYLATE 4MG TABLET PO SCH (21:25)
[2022-09-05] MEDS: ATORVASTATIN CALCIUM 20MG TABLET PO SCH (21:28)
[2022-09-05] MEDS: QUETIAPINE FUMARATE 25MG TABLET PO SCH (21:29)
[2022-09-05] MEDS: EPOETIN ALFA-EPBX 4,000 UNIT/ML VIAL SUBCUT SCH (21:49)
[2022-09-06] VITALS (14 sets, daily range): BP systolic 103–149; BP diastolic 58–88
[2022-09-06] MEDS: HYDRALAZINE HCL 100MG TABLET PO SCH ×3 (05:43→20:43)
[2022-09-06] MEDS: CARVEDILOL 12.5MG TABLET PO SCH ×2 (11:39→20:44)
[2022-09-06] MEDS: AMLODIPINE 5MG TABLET PO SCH ×2 (11:39→17:00)
[2022-09-06 15:19] LABS: HEMATOCRIT. 28.1 % (42.0-52.0); HEMOGLOBIN. 9.3 g/dL (14.0-18.0); MEAN CORPUSCULAR HEMOGLOBIN 23.2 pg (28.0-32.0); MEAN CORPUSCULAR VOLUME 69.6 fL (80.0-94.0); MEAN PLATELET VOLUME 8.3 fl (7.4-10.4); PLATELET 250 x1000/uL (130-400); RED BLOOD CELL COUNT 4.03 mill/uL (4.7-6.1); RED CELL DISTRIBUTION WIDTH 21.9 % (11.6-14.6)
[2022-09-06 15:39] LABS: PHOSPHORUS 4.3 mg/dL (2.5-4.9)
[2022-09-06] MEDS: ACETAMINOPHEN 325MG TABLET PO PRN (17:00)
[2022-09-06 17:35] LABS: PLATELET ESTIMATE NORMAL
[2022-09-06] MEDS: DOXAZOSIN MESYLATE 4MG TABLET PO SCH (20:43)
[2022-09-06] MEDS: QUETIAPINE FUMARATE 25MG TABLET PO SCH (20:43)
[2022-09-06] MEDS: ATORVASTATIN CALCIUM 20MG TABLET PO SCH (20:44)
[2022-09-07 04:00] VITALS: BP 152/83
[2022-09-07] MEDS: HYDRALAZINE HCL 100MG TABLET PO SCH ×3 (05:37→21:30)
[2022-09-07 08:00] VITALS: BP 143/90
[2022-09-07] MEDS: CARVEDILOL 12.5MG TABLET PO SCH ×2 (10:35→21:29)
[2022-09-07] MEDS: AMLODIPINE 5MG TABLET PO SCH ×2 (10:35→17:08)
[2022-09-07 12:00] VITALS: BP 142/87
[2022-09-07 16:00] VITALS: BP 124/63
[2022-09-07 20:00] VITALS: BP 131/76
[2022-09-07] MEDS: QUETIAPINE FUMARATE 25MG TABLET PO SCH (21:27)
[2022-09-07] MEDS: ATORVASTATIN CALCIUM 20MG TABLET PO SCH (21:27)
[2022-09-07] MEDS: DOXAZOSIN MESYLATE 4MG TABLET PO SCH (21:29)
[2022-09-08] VITALS (14 sets, daily range): BP systolic 116–148; BP diastolic 70–89
[2022-09-08] MEDS: HYDRALAZINE HCL 100MG TABLET PO SCH ×3 (06:26→21:22)
[2022-09-08] MEDS: CARVEDILOL 12.5MG TABLET PO SCH ×2 (09:00→21:22)
[2022-09-08] MEDS: AMLODIPINE 5MG TABLET PO SCH ×2 (09:00→16:13)
[2022-09-08] MEDS: ATORVASTATIN CALCIUM 20MG TABLET PO SCH (21:21)
[2022-09-08] MEDS: EPOETIN ALFA-EPBX 4,000 UNIT/ML VIAL SUBCUT SCH (21:21)
[2022-09-08] MEDS: DOXAZOSIN MESYLATE 4MG TABLET PO SCH (21:22)
[2022-09-08] MEDS: QUETIAPINE FUMARATE 25MG TABLET PO SCH (21:22)
[2022-09-09] VITALS: BP 118/60
[2022-09-09 04:00] VITALS: BP 115/82
[2022-09-09] MEDS: HYDRALAZINE HCL 100MG TABLET PO SCH ×3 (06:08→21:25)
[2022-09-09 06:30] LABS: HEMATOCRIT. 27.7 % (42.0-52.0); HEMOGLOBIN. 9.3 g/dL (14.0-18.0); MEAN CORPUSCULAR HEMOGLOBIN 23.4 pg (28.0-32.0); MEAN CORPUSCULAR VOLUME 69.7 fL (80.0-94.0); MEAN PLATELET VOLUME 8.5 fl (7.4-10.4); PLATELET 267 x1000/uL (130-400); RED BLOOD CELL COUNT 3.97 mill/uL (4.7-6.1); RED CELL DISTRIBUTION WIDTH 22.2 % (11.6-14.6)
[2022-09-09 08:00] VITALS: BP 129/77
[2022-09-09] MEDS: AMLODIPINE 5MG TABLET PO SCH ×2 (08:38→16:39)
[2022-09-09] MEDS: CARVEDILOL 12.5MG TABLET PO SCH ×2 (08:39→21:24)
[2022-09-09 12:00] VITALS: BP 125/60
[2022-09-09 13:58] LABS: PLATELET ESTIMATE NORMAL
[2022-09-09 16:00] VITALS: BP 135/77
[2022-09-09 20:00] VITALS: BP 148/77
[2022-09-09] MEDS: DOXAZOSIN MESYLATE 4MG TABLET PO SCH (21:24)
[2022-09-09] MEDS: QUETIAPINE FUMARATE 25MG TABLET PO SCH (21:24)
[2022-09-09] MEDS: ATORVASTATIN CALCIUM 20MG TABLET PO SCH (21:24)
[2022-09-10] VITALS (14 sets, daily range): BP systolic 105–140; BP diastolic 54–86
[2022-09-10] MEDS: HYDRALAZINE HCL 100MG TABLET PO SCH ×3 (05:27→20:30)
[2022-09-10] MEDS: AMLODIPINE 5MG TABLET PO SCH ×2 (10:57→16:40)
[2022-09-10] MEDS: CARVEDILOL 12.5MG TABLET PO SCH ×2 (10:58→20:31)
[2022-09-10] MEDS: ACETAMINOPHEN 325MG TABLET PO PRN (11:45)
[2022-09-10] MEDS: ATORVASTATIN CALCIUM 20MG TABLET PO SCH (20:29)
[2022-09-10] MEDS: DOXAZOSIN MESYLATE 4MG TABLET PO SCH (20:30)
[2022-09-10] MEDS: QUETIAPINE FUMARATE 25MG TABLET PO SCH (20:30)
[2022-09-10] MEDS: EPOETIN ALFA-EPBX 4,000 UNIT/ML VIAL SUBCUT SCH (20:39)
[2022-09-11] VITALS (16 sets, daily range): BP systolic 120–151; BP diastolic 60–89
[2022-09-11] MEDS: HYDRALAZINE HCL 100MG TABLET PO SCH ×3 (05:33→21:47)
[2022-09-11 06:01] LABS: INR 1.1; PARTIAL THROMBOPLASTIN TIME 29.2 sec (23.4-31.0); PROTHROMBIN TIME 11.4 sec (9.6-11.0)
[2022-09-11] MEDS: CARVEDILOL 12.5MG TABLET PO SCH ×2 (09:51→21:49)
[2022-09-11] MEDS: AMLODIPINE 5MG TABLET PO SCH ×2 (09:53→16:54)
[2022-09-11] MEDS ORDERED: CEFAZOLIN 1000MG PREMIX 50 ML IV NR (13:00)
[2022-09-11] MEDS ORDERED: HEPARIN 1000 UNITS/ML 10ML ONE (13:02)
[2022-09-11] MEDS ORDERED: LIDOCAINE HCL 1% 10 MG/ML 10ML VIAL ONE (13:02)
[2022-09-11] MEDS ORDERED: FENTANYL CITRATE/PF 50MCG/ML 2ML VIAL IV NR (13:30)
[2022-09-11] MEDS: ACETAMINOPHEN 325MG TABLET PO PRN (16:54)
[2022-09-11] MEDS: QUETIAPINE FUMARATE 25MG TABLET PO SCH (21:48)
[2022-09-11] MEDS: DOXAZOSIN MESYLATE 4MG TABLET PO SCH (21:48)
[2022-09-11] MEDS: ATORVASTATIN CALCIUM 20MG TABLET PO SCH (21:49)
[2022-09-12] VITALS (14 sets, daily range): BP systolic 116–161; BP diastolic 72–90
[2022-09-12] MEDS: HYDRALAZINE HCL 100MG TABLET PO SCH ×3 (05:56→21:05)
[2022-09-12] MEDS: CARVEDILOL 12.5MG TABLET PO SCH ×2 (09:41→21:06)
[2022-09-12] MEDS: AMLODIPINE 5MG TABLET PO SCH ×2 (09:41→17:00)
[2022-09-12] MEDS: ATORVASTATIN CALCIUM 20MG TABLET PO SCH (21:06)
[2022-09-12] MEDS: DOXAZOSIN MESYLATE 4MG TABLET PO SCH (21:06)
[2022-09-13] VITALS: BP 150/80
[2022-09-13 04:00] VITALS: BP_SYST 132; BP_SYST 144; BP_DIAS 51; BP_DIAS 86
[2022-09-13] MEDS: HYDRALAZINE HCL 100MG TABLET PO SCH ×3 (06:55→20:28)
[2022-09-13 08:00] VITALS: BP 160/95
[2022-09-13] MEDS: AMLODIPINE 5MG TABLET PO SCH ×2 (09:05→16:59)
[2022-09-13 12:00] VITALS: BP 143/88
[2022-09-13 16:00] VITALS: BP 136/86
[2022-09-13] MEDS: LOSARTAN POTASSIUM 50 MG TABLET PO SCH (17:38)
[2022-09-13 20:00] VITALS: BP 143/80
[2022-09-13] MEDS: DOXAZOSIN MESYLATE 4MG TABLET PO SCH (20:27)
[2022-09-14] VITALS: BP 131/78
[2022-09-14 04:00] VITALS: BP 141/81
[2022-09-14] MEDS: HYDRALAZINE HCL 100MG TABLET PO SCH ×2 (05:16→15:10)
[2022-09-14 08:00] VITALS: BP 138/64
[2022-09-14] MEDS: LOSARTAN POTASSIUM 50 MG TABLET PO SCH (09:00)
[2022-09-14] MEDS: AMLODIPINE 5MG TABLET PO SCH ×2 (09:30→17:45)
[2022-09-14 12:00] VITALS: BP 139/64
[2022-09-14 16:00] VITALS: BP 160/96
[2022-09-14 20:00] VITALS: BP 154/90
[2022-09-14] MEDS: DOXAZOSIN MESYLATE 4MG TABLET PO SCH (20:21)
[2022-09-15] VITALS (9 sets, daily range): BP systolic 120–154; BP diastolic 70–93
[2022-09-15 06:58] LABS: BASOPHILS % 0.6 % (0.0-2.0); EOSINOPHILS % 1.1 % (0.0-5.0); HEMATOCRIT. 29.1 % (42.0-52.0); HEMOGLOBIN. 9.7 g/dL (14.0-18.0); MEAN CORPUSCULAR HEMOGLOBIN 23.2 pg (28.0-32.0); MEAN CORPUSCULAR VOLUME 69.6 fL (80.0-94.0); MEAN PLATELET VOLUME 8.5 fl (7.4-10.4); MONOCYTES % 13.5 % (2.0-8.0); NEUTROPHILS % 58.8 % (40.0-76.0); PLATELET 268 x1000/uL (130-400); RED BLOOD CELL COUNT 4.17 mill/uL (4.7-6.1); RED CELL DISTRIBUTION WIDTH 21.7 % (11.6-14.6)
[2022-09-15 07:50] LABS: PHOSPHORUS 6.4 mg/dL (2.5-4.9)
[2022-09-15] MEDS: LOSARTAN POTASSIUM 50 MG TABLET PO SCH (09:51)
[2022-09-15] MEDS: AMLODIPINE 5MG TABLET PO SCH ×2 (09:51→17:00)
[2022-09-15] MEDS: CALCIUM ACETATE 667MG CAPSULE PO SCH (12:50)
[2022-09-15] MEDS ORDERED: EPOETIN ALFA-EPBX 4,000 UNIT/ML VIAL SUBCUT SCH (21:00)
[2022-09-15] MEDS: DOXAZOSIN MESYLATE 4MG TABLET PO SCH (22:23)
[2022-09-16] MEDS: CALCIUM ACETATE 667MG CAPSULE PO SCH ×2 (07:50→10:25)
[2022-09-16 08:00] VITALS: BP 148/86
[2022-09-16] MEDS: LOSARTAN POTASSIUM 50 MG TABLET PO SCH ×2 (09:00→10:40)
[2022-09-16] MEDS: AMLODIPINE 5MG TABLET PO SCH ×2 (10:40→19:11)
[2022-09-16 12:00] VITALS: BP 139/87
[2022-09-16] MEDS: ENOXAPARIN 30MG/0.3ML SYR SUBCUT SCH (14:00)
[2022-09-16 16:00] VITALS: BP 134/86
[2022-09-16 20:00] VITALS: BP 142/84
[2022-09-16] MEDS: DOXAZOSIN MESYLATE 4MG TABLET PO SCH (20:59)
[2022-09-17] VITALS (13 sets, daily range): BP systolic 98–151; BP diastolic 59–96
[2022-09-17] MEDS: CALCIUM ACETATE 667MG CAPSULE PO SCH ×3 (07:50→17:29)
[2022-09-17 08:08] LABS: BASOPHILS % 0.5 % (0.0-2.0); EOSINOPHILS % 0.9 % (0.0-5.0); HEMATOCRIT. 29.9 % (42.0-52.0); HEMOGLOBIN. 10.2 g/dL (14.0-18.0); LYMPHOCYTES % 27.4 % (20.0-50.0); MEAN CORPUSCULAR HEMOGLOBIN 23.4 pg (28.0-32.0); MEAN CORPUSCULAR VOLUME 68.8 fL (80.0-94.0); MEAN PLATELET VOLUME 8.3 fl (7.4-10.4); MONOCYTES % 13.8 % (2.0-8.0); NEUTROPHILS % 57.4 % (40.0-76.0); PLATELET 263 x1000/uL (130-400); RED BLOOD CELL COUNT 4.35 mill/uL (4.7-6.1); RED CELL DISTRIBUTION WIDTH 21.5 % (11.6-14.6)
[2022-09-17 08:10] LABS: PHOSPHORUS 6.1 mg/dL (2.5-4.9)
[2022-09-17] MEDS: LOSARTAN POTASSIUM 50 MG TABLET PO SCH ×2 (09:00→17:30)
[2022-09-17] MEDS: AMLODIPINE 5MG TABLET PO SCH ×2 (09:00→17:34)
[2022-09-17] MEDS: ENOXAPARIN 30MG/0.3ML SYR SUBCUT SCH (13:59)
[2022-09-17] MEDS: DOXAZOSIN MESYLATE 4MG TABLET PO SCH (21:26)
[2022-09-18] VITALS: BP 154/91
[2022-09-18 04:00] VITALS: BP 148/98
[2022-09-18] MEDS: CALCIUM ACETATE 667MG CAPSULE PO SCH ×5 (06:14→18:51)
[2022-09-18 08:00] VITALS: BP 144/96
[2022-09-18] MEDS: LOSARTAN POTASSIUM 50 MG TABLET PO SCH (09:27)
[2022-09-18] MEDS: AMLODIPINE 5MG TABLET PO SCH ×2 (09:27→18:50)
[2022-09-18 12:00] VITALS: BP 150/91
[2022-09-18] MEDS: ENOXAPARIN 30MG/0.3ML SYR SUBCUT SCH (14:02)
[2022-09-18 16:00] VITALS: BP 143/83
[2022-09-18 20:00] VITALS: BP 144/83
[2022-09-18] MEDS: DOXAZOSIN MESYLATE 4MG TABLET PO SCH (21:09)
[2022-09-19] VITALS (15 sets, daily range): BP systolic 121–168; BP diastolic 80–99
[2022-09-19] MEDS: CALCIUM ACETATE 667MG CAPSULE PO SCH ×3 (08:19→16:51)
[2022-09-19] MEDS: LOSARTAN POTASSIUM 50 MG TABLET PO SCH (09:00)
[2022-09-19] MEDS: AMLODIPINE 5MG TABLET PO SCH ×2 (09:00→16:50)
[2022-09-19 12:03] LABS: HEMATOCRIT. 30.7 % (42.0-52.0); HEMOGLOBIN. 10.2 g/dL (14.0-18.0); MEAN CORPUSCULAR HEMOGLOBIN 22.8 pg (28.0-32.0); MEAN CORPUSCULAR VOLUME 68.6 fL (80.0-94.0); MEAN PLATELET VOLUME 8.2 fl (7.4-10.4); PLATELET 244 x1000/uL (130-400); RED BLOOD CELL COUNT 4.47 mill/uL (4.7-6.1); RED CELL DISTRIBUTION WIDTH 20.9 % (11.6-14.6)
[2022-09-19 13:14] LABS: PLATELET ESTIMATE NORMAL
[2022-09-19] MEDS: ENOXAPARIN 30MG/0.3ML SYR SUBCUT SCH (16:51)
[2022-09-19] MEDS: DOXAZOSIN MESYLATE 4MG TABLET PO SCH (21:28)
[2022-09-20] VITALS: BP 146/89
[2022-09-20 04:00] VITALS: BP 149/81
[2022-09-20 08:00] VITALS: BP 148/97
[2022-09-20] MEDS: AMLODIPINE 5MG TABLET PO SCH ×2 (08:21→18:31)
[2022-09-20] MEDS: CALCIUM ACETATE 667MG CAPSULE PO SCH ×3 (08:22→18:31)
[2022-09-20] MEDS: LOSARTAN POTASSIUM 50 MG TABLET PO SCH (08:22)
[2022-09-20 12:00] VITALS: BP 145/89
[2022-09-20] MEDS: ENOXAPARIN 30MG/0.3ML SYR SUBCUT SCH (14:00)
[2022-09-20 16:00] VITALS: BP 162/99
[2022-09-20 20:00] VITALS: BP 161/87
[2022-09-20] MEDS: DOXAZOSIN MESYLATE 4MG TABLET PO SCH (21:59)
[2022-09-21] VITALS: BP 154/88
[2022-09-21 04:00] VITALS: BP 158/93
[2022-09-21 08:00] VITALS: BP 135/88
[2022-09-21] MEDS: LOSARTAN POTASSIUM 50 MG TABLET PO SCH (09:38)
[2022-09-21] MEDS: CALCIUM ACETATE 667MG CAPSULE PO SCH ×3 (09:38→17:51)
[2022-09-21] MEDS: AMLODIPINE 5MG TABLET PO SCH ×2 (09:39→17:51)
[2022-09-21 12:00] VITALS: BP 168/109
[2022-09-21] MEDS: ENOXAPARIN 30MG/0.3ML SYR SUBCUT SCH (13:22)
[2022-09-21] MEDS: HYDRALAZINE HCL 10MG TABLET PO PRN (13:27)
[2022-09-21 16:00] VITALS: BP 146/88
[2022-09-21 16:11] LABS: BASOPHILS % 0.5 % (0.0-2.0); EOSINOPHILS % 1.6 % (0.0-5.0); HEMATOCRIT. 31.9 % (42.0-52.0); HEMOGLOBIN. 10.4 g/dL (14.0-18.0); LYMPHOCYTES % 30.5 % (20.0-50.0); MEAN CORPUSCULAR HEMOGLOBIN 22.6 pg (28.0-32.0); MEAN CORPUSCULAR VOLUME 69.4 fL (80.0-94.0); MEAN PLATELET VOLUME 8.4 fl (7.4-10.4); MONOCYTES % 12.2 % (2.0-8.0); NEUTROPHILS % 55.2 % (40.0-76.0); PLATELET 278 x1000/uL (130-400); RED CELL DISTRIBUTION WIDTH 21.4 % (11.6-14.6)
[2022-09-21 16:30] LABS: PHOSPHORUS 5.1 mg/dL (2.5-4.9)
[2022-09-21 19:55] LABS: PLATELET ESTIMATE NORMAL
[2022-09-21] MEDS: DOXAZOSIN MESYLATE 4MG TABLET PO SCH (20:55)
[2022-09-22] VITALS (14 sets, daily range): BP systolic 90–168; BP diastolic 62–99
[2022-09-22] MEDS: CALCIUM ACETATE 667MG CAPSULE PO SCH ×3 (08:57→17:24)
[2022-09-22] MEDS: LOSARTAN POTASSIUM 50 MG TABLET PO SCH (09:00)
[2022-09-22] MEDS: AMLODIPINE 5MG TABLET PO SCH ×2 (09:00→17:24)
[2022-09-22] MEDS: ENOXAPARIN 30MG/0.3ML SYR SUBCUT SCH (13:57)
[2022-09-22 16:08] LABS: BASOPHILS % 0.4 % (0.0-2.0); EOSINOPHILS % 1.6 % (0.0-5.0); HEMATOCRIT. 28.9 % (42.0-52.0); HEMOGLOBIN. 9.7 g/dL (14.0-18.0); LYMPHOCYTES % 27.7 % (20.0-50.0); MEAN CORPUSCULAR HEMOGLOBIN 22.9 pg (28.0-32.0); MEAN CORPUSCULAR VOLUME 68.6 fL (80.0-94.0); MEAN PLATELET VOLUME 8.4 fl (7.4-10.4); MONOCYTES % 13.8 % (2.0-8.0); NEUTROPHILS % 56.5 % (40.0-76.0); PLATELET 254 x1000/uL (130-400); RED BLOOD CELL COUNT 4.22 mill/uL (4.7-6.1)
[2022-09-22] MEDS: DOXAZOSIN MESYLATE 4MG TABLET PO SCH (21:16)
[2022-09-23] VITALS: BP 142/89
[2022-09-23 04:00] VITALS: BP 152/90
[2022-09-23 08:00] VITALS: BP 150/101
[2022-09-23] MEDS: LOSARTAN POTASSIUM 50 MG TABLET PO SCH (09:39)
[2022-09-23] MEDS: CALCIUM ACETATE 667MG CAPSULE PO SCH ×3 (09:39→18:01)
[2022-09-23 11:58] VITALS: BP 164/99
[2022-09-23] MEDS: HYDRALAZINE HCL 10MG TABLET PO PRN (12:46)
[2022-09-23] MEDS: ENOXAPARIN 30MG/0.3ML SYR SUBCUT SCH (12:48)
[2022-09-23 16:00] VITALS: BP 145/80
[2022-09-23 20:00] VITALS: BP 144/81
[2022-09-23] MEDS: DOXAZOSIN MESYLATE 4MG TABLET PO SCH (21:51)
[2022-09-24] VITALS (14 sets, daily range): BP systolic 108–170; BP diastolic 80–102
[2022-09-24] MEDS: HYDRALAZINE HCL 10MG TABLET PO PRN (00:53)
[2022-09-24] MEDS: CLONIDINE 0.1MG TABLET PO PRN ×2 (03:59→19:22)
[2022-09-24 07:16] LABS: HEMATOCRIT. 27.8 % (42.0-52.0); HEMOGLOBIN. 9.4 g/dL (14.0-18.0); MEAN CORPUSCULAR HEMOGLOBIN 23.2 pg (28.0-32.0); MEAN CORPUSCULAR VOLUME 69.2 fL (80.0-94.0); MEAN PLATELET VOLUME 8.5 fl (7.4-10.4); PLATELET 236 x1000/uL (130-400); RED BLOOD CELL COUNT 4.02 mill/uL (4.7-6.1); RED CELL DISTRIBUTION WIDTH 21.3 % (11.6-14.6)
[2022-09-24 08:53] LABS: PHOSPHORUS 4.6 mg/dL (2.5-4.9)
[2022-09-24] MEDS: CALCIUM ACETATE 667MG CAPSULE PO SCH ×2 (13:53→19:23)
[2022-09-24] MEDS: ENOXAPARIN 30MG/0.3ML SYR SUBCUT SCH (15:12)
[2022-09-24 17:09] LABS: HEPATITIS B SURFACE AB < 3.1 mIU/mL
[2022-09-24 17:20] LABS: HEPATITIS B SURFACE ANTIGEN NEGATIVE
[2022-09-24 20:08] LABS: PLATELET ESTIMATE NORMAL
[2022-09-25] MEDS ORDERED: DOXAZOSIN MESYLATE 4MG TABLET PO NR
[2022-09-25] MEDS: DOXAZOSIN MESYLATE 4MG TABLET PO SCH (00:45)
[2022-09-25 02:00] VITALS: BP 150/99
[2022-09-25 08:00] VITALS: BP 162/105
[2022-09-25] MEDS: CALCIUM ACETATE 667MG CAPSULE PO SCH ×3 (08:32→18:34)
[2022-09-25] MEDS: LOSARTAN POTASSIUM 50 MG TABLET PO SCH ×2 (08:33→09:00)
[2022-09-25] MEDS: CLONIDINE 0.1MG TABLET PO PRN (08:33)
[2022-09-25] MEDS ORDERED: SODIUM POLYSTYRENE SULFONATE 15 G/60 ML BOT PO SCH (09:30)
[2022-09-25] MEDS: HYDRALAZINE HCL 10MG TABLET PO PRN (12:28)
[2022-09-25] MEDS: ENOXAPARIN 30MG/0.3ML SYR SUBCUT SCH (14:18)
[2022-09-25 20:00] VITALS: BP 150/93
[2022-09-25] MEDS ORDERED: DOXAZOSIN MESYLATE 2MG TABLET PO SCH (21:00)
[2022-09-26] VITALS (14 sets, daily range): BP systolic 126–181; BP diastolic 64–110
[2022-09-26 05:25] LABS: BASOPHILS % 0.3 % (0.0-2.0); HEMATOCRIT. 30.3 % (42.0-52.0); MEAN CORPUSCULAR HEMOGLOBIN 22.8 pg (28.0-32.0); MEAN CORPUSCULAR VOLUME 69.4 fL (80.0-94.0); MEAN PLATELET VOLUME 8.2 fl (7.4-10.4); MONOCYTES % 13.3 % (2.0-8.0); NEUTROPHILS % 54.4 % (40.0-76.0); PLATELET 221 x1000/uL (130-400); RED BLOOD CELL COUNT 4.37 mill/uL (4.7-6.1); RED CELL DISTRIBUTION WIDTH 20.9 % (11.6-14.6)
[2022-09-26 06:02] LABS: PHOSPHORUS 5.4 mg/dL (2.5-4.9)
[2022-09-26] MEDS: CALCIUM ACETATE 667MG CAPSULE PO SCH ×2 (07:50→13:35)
[2022-09-26] MEDS: LOSARTAN POTASSIUM 50 MG TABLET PO SCH (08:25)
[2022-09-26] MEDS ORDERED: AMLO5TAB88 PO (12:59)
[2022-09-26] MEDS ORDERED: LOSA50TA3 PO (12:59)
[2022-09-26] MEDS: ENOXAPARIN 30MG/0.3ML SYR SUBCUT SCH (14:25)
[2022-09-27] VITALS: BP 183/96
[2022-09-27 04:00] VITALS: BP 116/98
[2022-09-27] MEDS: CLONIDINE 0.1MG TABLET PO PRN ×2 (04:34→08:39)
[2022-09-27 06:54] LABS: BASOPHILS % 0.5 % (0.0-2.0); EOSINOPHILS % 1.8 % (0.0-5.0); HEMATOCRIT. 28.9 % (42.0-52.0); HEMOGLOBIN. 9.8 g/dL (14.0-18.0); LYMPHOCYTES % 35.9 % (20.0-50.0); MEAN CORPUSCULAR HEMOGLOBIN 23.2 pg (28.0-32.0); MEAN CORPUSCULAR VOLUME 68.4 fL (80.0-94.0); MEAN PLATELET VOLUME 8.5 fl (7.4-10.4); MONOCYTES % 14.9 % (2.0-8.0); NEUTROPHILS % 46.9 % (40.0-76.0); PLATELET 225 x1000/uL (130-400); RED BLOOD CELL COUNT 4.23 mill/uL (4.7-6.1); RED CELL DISTRIBUTION WIDTH 21.3 % (11.6-14.6)
[2022-09-27 07:56] LABS: PHOSPHORUS 5.6 mg/dL (2.5-4.9)
[2022-09-27 08:00] VITALS: BP 170/105
[2022-09-27] MEDS: LOSARTAN POTASSIUM 50 MG TABLET PO SCH ×2 (08:39→17:00)
[2022-09-27] MEDS: CALCIUM ACETATE 667MG CAPSULE PO SCH ×3 (08:42→18:20)
[2022-09-27 12:00] VITALS: BP 156/97
[2022-09-27] MEDS: ENOXAPARIN 30MG/0.3ML SYR SUBCUT SCH (13:08)
[2022-09-27 16:00] VITALS: BP 147/93
[2022-09-27 20:00] VITALS: BP 156/88
[2022-09-28] VITALS: BP 163/97
[2022-09-28] MEDS: CLONIDINE 0.1MG TABLET PO PRN (00:51)
[2022-09-28] MEDS: HYDRALAZINE HCL 10MG TABLET PO PRN (02:57)
[2022-09-28 04:00] VITALS: BP 187/104
[2022-09-28] MEDS: HYDRALAZINE HCL 50MG TABLET PO SCH ×3 (06:30→17:11)
[2022-09-28] MEDS: CALCIUM ACETATE 667MG CAPSULE PO SCH ×3 (07:03→17:10)
[2022-09-28 08:00] VITALS: BP 174/99
[2022-09-28] MEDS: LOSARTAN POTASSIUM 50 MG TABLET PO SCH ×2 (08:13→21:00)
[2022-09-28] MEDS: METOPROLOL TARTRATE 50MG TABLET PO SCH ×2 (08:14→17:11)
[2022-09-28] MEDS: AMLODIPINE 5MG TABLET PO SCH ×2 (08:14→21:00)
[2022-09-28 11:55] VITALS: BP 135/96
[2022-09-28] MEDS: ENOXAPARIN 30MG/0.3ML SYR SUBCUT SCH (12:35)
[2022-09-28 15:58] VITALS: BP 137/82
[2022-09-28] MEDS ORDERED: QUETIAPINE FUMARATE 25MG TABLET PO SCH (21:00)
[2022-09-29] VITALS (11 sets, daily range): BP systolic 134–151; BP diastolic 70–92
[2022-09-29 06:46] LABS: BASOPHILS % 0.4 % (0.0-2.0); EOSINOPHILS % 1.4 % (0.0-5.0); HEMATOCRIT. 27.2 % (42.0-52.0); HEMOGLOBIN. 9.4 g/dL (14.0-18.0); MEAN CORPUSCULAR HEMOGLOBIN 23.4 pg (28.0-32.0); MEAN PLATELET VOLUME 8.6 fl (7.4-10.4); MONOCYTES % 13.1 % (2.0-8.0); NEUTROPHILS % 56.1 % (40.0-76.0); PLATELET 221 x1000/uL (130-400); RED CELL DISTRIBUTION WIDTH 21.1 % (11.6-14.6)
[2022-09-29] MEDS: CALCIUM ACETATE 667MG CAPSULE PO SCH ×3 (07:50→17:50)
[2022-09-29] MEDS: LOSARTAN POTASSIUM 50 MG TABLET PO SCH (09:09)
[2022-09-29] MEDS: HYDRALAZINE HCL 10MG TABLET PO PRN (09:10)
[2022-09-29] MEDS: METOPROLOL TARTRATE 50MG TABLET PO SCH ×2 (09:10→17:00)
[2022-09-29] MEDS: AMLODIPINE 5MG TABLET PO SCH (09:10)
[2022-09-29] MEDS: HYDRALAZINE HCL 50MG TABLET PO SCH (09:12)
[2022-09-29] MEDS: ENOXAPARIN 30MG/0.3ML SYR SUBCUT SCH (13:34)
[2022-09-29] MEDS ORDERED: CLONIDINE 0.1MG TABLET PO PRN (15:15)
[2022-09-29] MEDS ORDERED: HYDRALAZINE HCL 50MG TABLET PO SCH (22:00)
== END 2022-09-29 20:05 | disposition home or self-care (01) | DRG 194 ==
LOC: ER 10:53 → MICUSO 16:43 → EDBEDREQTM 16:52 → EDBEDREQ 16:52 → 7EST 20:37 → 6EST 08-18 05:21 → 5WST 08-28 11:04 → 6WST 09-12 15:00 → 6EST 09-14 15:30 → UNDODISIN 09-15 12:53
PROVIDERS: ADMIT Internal Medicine; ATTEND Internal Medicine
PROC: 5A1D70Z Performance of Urinary Filtration, Intermittent, Less than 6 Hours Per Day (ICD-10-PCS; 2022-08-15)
PROC: 5A1D70Z Performance of Urinary Filtration, Intermittent, Less than 6 Hours Per Day (ICD-10-PCS; 2022-08-18)
PROC: 5A1D70Z Performance of Urinary Filtration, Intermittent, Less than 6 Hours Per Day (ICD-10-PCS; 2022-08-20)
PROC: 5A1D70Z Performance of Urinary Filtration, Intermittent, Less than 6 Hours Per Day (ICD-10-PCS; 2022-08-22)
PROC: 5A1D70Z Performance of Urinary Filtration, Intermittent, Less than 6 Hours Per Day (ICD-10-PCS; 2022-08-25)
PROC: 5A1D70Z Performance of Urinary Filtration, Intermittent, Less than 6 Hours Per Day (ICD-10-PCS; 2022-08-27)
PROC: 0JBM0ZX Excision of Left Upper Leg Subcutaneous Tissue and Fascia, Open Approach, Diagnostic (ICD-10-PCS; 2022-08-28)
PROC: 5A1D70Z Performance of Urinary Filtration, Intermittent, Less than 6 Hours Per Day (ICD-10-PCS; 2022-08-29)
PROC: 5A1D70Z Performance of Urinary Filtration, Intermittent, Less than 6 Hours Per Day (ICD-10-PCS; 2022-08-31)
PROC: 5A1D70Z Performance of Urinary Filtration, Intermittent, Less than 6 Hours Per Day (ICD-10-PCS; 2022-09-02)
PROC: 5A1D70Z Performance of Urinary Filtration, Intermittent, Less than 6 Hours Per Day (ICD-10-PCS; 2022-09-04)
PROC: 5A1D70Z Performance of Urinary Filtration, Intermittent, Less than 6 Hours Per Day (ICD-10-PCS; 2022-09-06)
PROC: 5A1D70Z Performance of Urinary Filtration, Intermittent, Less than 6 Hours Per Day (ICD-10-PCS; 2022-09-08)
PROC: 5A1D70Z Performance of Urinary Filtration, Intermittent, Less than 6 Hours Per Day (ICD-10-PCS; 2022-09-10)
PROC: 05PY33Z Removal of Infusion Device from Upper Vein, Percutaneous Approach (ICD-10-PCS; principal; 2022-09-12)
PROC: 05HY33Z Insertion of Infusion Device into Upper Vein, Percutaneous Approach (ICD-10-PCS; 2022-09-12)
PROC: 5A1D70Z Performance of Urinary Filtration, Intermittent, Less than 6 Hours Per Day (ICD-10-PCS; 2022-09-12)
PROC: 5A1D70Z Performance of Urinary Filtration, Intermittent, Less than 6 Hours Per Day (ICD-10-PCS; 2022-09-15)
PROC: 5A1D70Z Performance of Urinary Filtration, Intermittent, Less than 6 Hours Per Day (ICD-10-PCS; 2022-09-17)
PROC: 5A1D70Z Performance of Urinary Filtration, Intermittent, Less than 6 Hours Per Day (ICD-10-PCS; 2022-09-19)
PROC: 5A1D70Z Performance of Urinary Filtration, Intermittent, Less than 6 Hours Per Day (ICD-10-PCS; 2022-09-22)
PROC: 5A1D70Z Performance of Urinary Filtration, Intermittent, Less than 6 Hours Per Day (ICD-10-PCS; 2022-09-24)
PROC: 5A1D70Z Performance of Urinary Filtration, Intermittent, Less than 6 Hours Per Day (ICD-10-PCS; 2022-09-26)
PROC: 5A1D70Z Performance of Urinary Filtration, Intermittent, Less than 6 Hours Per Day (ICD-10-PCS; 2022-09-29)
DX: I13.2 Hypertensive heart and chronic kidney disease with heart failure and with stage 5 chronic kidney disease, or end stage renal disease (principal); N18.6 End stage renal disease; E11.22 Type 2 diabetes mellitus with diabetic chronic kidney disease; E44.0 Moderate protein-calorie malnutrition; E87.1 Hypo-osmolality and hyponatremia; D36.10 Benign neoplasm of peripheral nerves and autonomic nervous system, unspecified; D50.9 Iron deficiency anemia, unspecified; E78.5 Hyperlipidemia, unspecified; I50.23 Acute on chronic systolic (congestive) heart failure; E87.5 Hyperkalemia; J44.9 Chronic obstructive pulmonary disease, unspecified; Z20.822 Contact with and (suspected) exposure to COVID-19; F14.10 Cocaine abuse, uncomplicated; F17.210 Nicotine dependence, cigarettes, uncomplicated; K21.9 Gastro-esophageal reflux disease without esophagitis; Z68.23 Body mass index [BMI] 23.0-23.9, adult; Z86.16 Personal history of COVID-19; Z99.2 Dependence on renal dialysis; Z82.49 Family history of ischemic heart disease and other diseases of the circulatory system; Z91.15 Patient's noncompliance with renal dialysis; Z79.899 Other long term (current) drug therapy
CPT/HCPCS: 20206; 36415; 36558; 36589; 71045; 73552; 73721; 76881; 76942; 77001; 80048; 80053; 80061; 80076; 82962; 83540; 83550; 83735; 83880; 84100; 84145; 84484; 85025; 86705; 86706; 86803; 86850; 86900; 87340; 87426; 88304; 90935; 93005; 99152; 99153; 99291; C1750; C1769; C1893; J0696; J0885; J1644; J1650; J1815; J3475; J3490; J7060; U0003; U0005; G0500

== ENCOUNTER 2024-03-23 13:16 | Inpatient (IN) | payer OTHER ==
[~2024-03-23] VITALS: Ht 172.7 cm; Wt 88.5 kg
[~2024-03-23 13:16] MED LIST changes: -CLON0.2T PO; +LOSA-413 PO
[2024-03-23] MEDS: SODIUM CHLORIDE 0.9% 1,000 ML IV ONE (14:11)
[2024-03-23 14:32] LABS: HEMOGLOBIN. 9.9 g/dL (14.0-18.0); MEAN CORPUSCULAR HEMOGLOBIN 25.9 pg (28.0-32.0); MEAN CORPUSCULAR HGB CONC 34.1 g/dL (31.0-37.0); MEAN CORPUSCULAR VOLUME 75.8 fL (80.0-94.0); MEAN PLATELET VOLUME 7.9 fl (7.4-10.4); PLATELET 291 x1000/uL (130-400); RED BLOOD CELL COUNT 3.82 mill/uL (4.7-6.1); WHITE BLOOD COUNT 23.7 x1000/uL (4.5-11.0)
[2024-03-23 14:37] LABS: DIFFERENTIAL COMMENT 1; INR 1.2; PROTHROMBIN TIME 13.1 sec (9.6-11.0)
[2024-03-23 14:44] LABS: CARBON DIOXIDE 30 mEq/L (21-32); CHLORIDE 94 mEq/L (98-107); SODIUM 134 mEq/L (136-145)
[2024-03-23 14:49] LABS: GLUCOSE 97 mg/dL (70-105)
[2024-03-23 14:50] LABS: UREA NITROGEN BLOOD 38 mg/dL (9-23)
[2024-03-23 14:51] LABS: ALANINE AMINOTRANSFERASE 43 IU/L (10-49); TROPONIN I HIGH SENSITIVITY 25 ng/L (3.0-53)
[2024-03-23 14:52] LABS: ALBUMIN 3.9 g/dL (3.2-4.8); ASPARTATE AMINOTRANSFERASE 33 IU/L (<34); BILIRUBIN TOTAL 0.9 mg/dL (0.1-1.0); PROTEIN TOTAL 7.5 g/dL (6.0-8.3)
[2024-03-23] MEDS ORDERED: SODIUM CHLORIDE 0.9% 1000ML BAG (SEPSIS BOLUS) IV ONE (15:30)
[2024-03-23] MEDS: PIPERACILLIN/TAZO 3.375G/50ML 50 ML IV ONE (16:21)
[2024-03-23] MEDS: VANCOMYCIN 1G PREMIX 200 ML IV ONE (16:56)
[2024-03-23 17:11] LABS: INR 1.3; PROTHROMBIN TIME 13.8 sec (9.6-11.0)
[2024-03-23 17:39] LABS: TROPONIN I HIGH SENSITIVITY 19 ng/L (3.0-53)
[2024-03-23 18:00] LABS: MICROCYTOSIS 1+; PLATELET ESTIMATE NORMAL
[2024-03-23] MEDS ORDERED: IPRATROPIUM/ALBUTEROL 0.5-3(2.5)MG/3ML NEB HHN PRN (18:30)
[2024-03-23] MEDS ORDERED: DEXTROSE 50% WATER 50ML SYRINGE IV PRN (18:30)
[2024-03-23 18:33] LABS: CLARITY URINE TURBID (CLEAR); COLOR URINE DARK YELLOW (YELLOW); GLUCOSE URINE NEGATIVE (NEGATIVE); KETONES URINE TRACE (NEGATIVE); LEUKOCYTE ESTERASE URINE 3+ (NEGATIVE); NITRITE URINE NEGATIVE (NEGATIVE); OCCULT BLOOD URINE 1+ (NEGATIVE); PH URINE 5.5 (4.5-8.0); PROTEIN URINE 3+ (NEGATIVE); SPECIFIC GRAVITY URINE 1.018 (1.005-1.030)
[2024-03-23] MEDS: POTASSIUM CHLORIDE 20MEQ TABLET SR PO NR (18:46)
[2024-03-23 18:57] LABS: BACTERIA URINE 2+; SQUAMOUS EPITHELIAL CELL URINE FEW /lpf (RARE/1+); WBC URINE TNTC /hpf (0-2)
[2024-03-23 19:55] LABS: IRON 26 ug/dL (65-175)
[2024-03-23 19:58] LABS: TOTAL IRON BINDING CAPACITY 386 ug/dl (250-425)
[2024-03-23 20:01] LABS: FOLIC ACID (FOLATE) SERUM 17.91 ng/mL (>5.38); VITAMIN B12 SERUM 902 pg/mL (211-911)
[2024-03-23] MEDS: VANCOMYCIN 500MG/100ML IV NR (20:18)
[2024-03-23] MEDS: SODIUM CHLORIDE 0.45% 1,000 ML IV SCH (20:18)
[2024-03-23 20:38] LABS: FERRITIN 2469 ng/mL (22-322)
[2024-03-23] MEDS: BLOOD SUGAR DIAGNOSTIC STRIP TEST SCH (21:59)
[2024-03-23] MEDS: ATORVASTATIN CALCIUM 20MG TABLET PO SCH (21:59)
[2024-03-23 22:00] VITALS: BP 114/65; PULSE 117; RESP 16; TEMP 38.00304; O2SAT 98
[2024-03-23] MEDS ORDERED: CLONIDINE 0.2MG TABLET PO SCH (22:00)
[2024-03-23] MEDS: HYDRALAZINE HCL 100MG TABLET PO SCH (22:00)
[2024-03-23] MEDS ORDERED: PIPERACILLIN/TAZOBACTAM 3.375 G in DEXTROSE 5% WATER 50 ML IV SCH (23:00)
[2024-03-24] MEDS: PIPERACILLIN/TAZO 3.375G/50ML IV SCH (00:20)
[2024-03-24] MEDS: ACETAMINOPHEN 325MG TABLET PO PRN (02:23)
[2024-03-24 03:45] VITALS: BP 93/51; PULSE 91; RESP 18; TEMP 37.11408; TEMP 37.1408; O2SAT 98
[2024-03-24] MEDS: SODIUM CHLORIDE 0.9% 250 ML IV NR (04:23)
[2024-03-24] MEDS ORDERED: SODIUM CHLORIDE 0.9% 250 ML IV NR (05:15)
[2024-03-24] MEDS ORDERED: AMLO10TA4 MT (05:55)
[2024-03-24] MEDS ORDERED: CALC667C MT (05:55)
[2024-03-24] MEDS ORDERED: ATOR20TA MT (05:55)
[2024-03-24] MEDS ORDERED: HYDR100T11 MT (05:55)
[2024-03-24 06:07] LABS: CHLORIDE 98 mEq/L (98-107); POTASSIUM 3.7 mEq/L (3.5-5.1); SODIUM 133 mEq/L (136-145)
[2024-03-24 06:08] LABS: CARBON DIOXIDE 26 mEq/L (21-32)
[2024-03-24 06:13] LABS: GLUCOSE 173 mg/dL (70-105)
[2024-03-24 06:14] LABS: ALANINE AMINOTRANSFERASE 42 IU/L (10-49); ASPARTATE AMINOTRANSFERASE 36 IU/L (<34); CREATINE KINASE MB FRACTION < 0.5 ng/mL (0.5-3.6); LDL CHOLESTEROL 28 mg/dL (5-100); TRIGLYCERIDE 80 mg/dL (0-150); TROPONIN I HIGH SENSITIVITY 27 ng/L (3.0-53); UREA NITROGEN BLOOD 49 mg/dL (9-23)
[2024-03-24 06:15] LABS: ALBUMIN 3.2 g/dL (3.2-4.8); BILIRUBIN DIRECT 0.4 mg/dL (<=3.0); BILIRUBIN TOTAL 0.7 mg/dL (0.1-1.0); PROTEIN TOTAL 6.3 g/dL (6.0-8.3)
[2024-03-24 06:16] LABS: CHOLESTEROL 54 mg/dL (<200); HDL CHOLESTEROL < 20 mg/dL (>55)
[2024-03-24 06:18] LABS: T4 FREE 1.27 ng/dL (0.89-1.76)
[2024-03-24 06:19] LABS: THYROID STIMULATING HORMONE 3.71 uIU/mL (0.55-4.78)
[2024-03-24 06:20] LABS: CREATINE KINASE 51 IU/L (46-171)
[2024-03-24] MEDS: SODIUM CHLORIDE 0.45% 1,000 ML IV SCH (06:23)
[2024-03-24 06:51] LABS: HEPATITIS B SURFACE ANTIGEN NEGATIVE (Negative)
[2024-03-24 06:59] LABS: CREATININE 9.8 mg/dL (0.6-1.3)
[2024-03-24 07:12] LABS: HEPATITIS A AB IGM NEGATIVE (Negative); HEPATITIS B CORE AB IGM NEGATIVE (Negative)
[2024-03-24 07:13] LABS: HEPATITIS C AB NON REACTIVE (Neg) (Negative)
[2024-03-24 07:58] VITALS: BP 93/53; PULSE 77; RESP 20; TEMP 35.89176; O2SAT 98
[2024-03-24 08:18] LABS: SODIUM URINE RANDOM 38 mEq/L
[2024-03-24] MEDS: LACTOBACILLUS GG CAPSULE PO SCH (08:23)
[2024-03-24 08:24] LABS: *AMPHETAMINES SCREEN URINE NEGATIVE (NEGATIVE)
[2024-03-24] MEDS: AMLODIPINE 10MG TABLET PO SCH (08:24)
[2024-03-24 08:25] LABS: *BARBITURATES SCREEN URINE NEGATIVE (NEGATIVE); *BENZODIAZEPINES SCREEN URINE NEGATIVE (NEGATIVE); *COCAINE SCREEN URINE NEGATIVE (NEGATIVE); CANNABINOID URINE SCREEN NEGATIVE (NEGATIVE); ECSTASY MDMA SCREEN URINE NEGATIVE (NEGATIVE); METHADONE URINE SCREEN NEGATIVE (NEGATIVE); OPIATES URINE SCREEN NEGATIVE (NEGATIVE); PHENCYCLIDINE URINE SCREEN NEGATIVE (NEGATIVE)
[2024-03-24 09:56] LABS: OSMOLALITY URINE 296 mOsm/kg (500-850)
[2024-03-24 10:30] LABS: HEMATOCRIT. 26.1 % (42.0-52.0); HEMOGLOBIN. 8.6 g/dL (14.0-18.0); MEAN CORPUSCULAR HEMOGLOBIN 25.6 pg (28.0-32.0); MEAN CORPUSCULAR VOLUME 77.7 fL (80.0-94.0); MEAN PLATELET VOLUME 7.8 fl (7.4-10.4); PLATELET 228 x1000/uL (130-400); RED BLOOD CELL COUNT 3.36 mill/uL (4.7-6.1); RED CELL DISTRIBUTION WIDTH 14.3 % (11.6-14.6); WHITE BLOOD COUNT 18.7 x1000/uL (4.5-11.0)
[2024-03-24 10:49] LABS: DIFFERENTIAL COMMENT 1
[2024-03-24] MEDS: MIDODRINE HCL 5MG TABLET PO NR (11:36)
[2024-03-24 12:00] VITALS: BP 92/56; PULSE 78; RESP 18; TEMP 36.44736; O2SAT 95
[2024-03-24] MEDS: MIDODRINE HCL 5MG TABLET PO SCH (12:50)
[2024-03-24 13:31] LABS: PLATELET ESTIMATE NORMAL
[2024-03-24 13:33] LABS: ROULEAUX 1+
[2024-03-24 13:35] LABS: ANISOCYTOSIS 1+
[2024-03-24 13:36] LABS: MICROCYTOSIS 1+
[2024-03-24] MEDS: DOXYCYCLINE 100MG/100ML 100 ML IV SCH (15:17)
[2024-03-24 16:00] VITALS: BP 125/59; PULSE 91; RESP 20; TEMP 38.72532; O2SAT 98
[2024-03-24 20:00] VITALS: BP 102/59; PULSE 74; RESP 18; TEMP 36.3918; O2SAT 97
[2024-03-25] VITALS: BP 109/63; PULSE 80; RESP 18; TEMP 36.50292; O2SAT 99
[2024-03-25 04:00] VITALS: BP 119/67; PULSE 96; RESP 19; TEMP 36.72516; O2SAT 98
[2024-03-25] MEDS: CHLORPROMAZINE HCL 25 MG TABLET PO NR ×2 (05:25→23:42)
[2024-03-25 06:55] LABS: CALCIUM 8.4 mg/dL (8.7-10.4)
[2024-03-25 07:02] LABS: CREATININE 11.8 mg/dL (0.6-1.3)
[2024-03-25 07:21] LABS: BASOPHILS % 0.3 % (0.0-2.0); DIFFERENTIAL COMMENT 0; EOSINOPHILS % 0.7 % (0.0-5.0); HEMATOCRIT. 25.5 % (42.0-52.0); HEMOGLOBIN. 8.6 g/dL (14.0-18.0); LYMPHOCYTES % 12.9 % (20.0-50.0); MEAN CORPUSCULAR HEMOGLOBIN 26.1 pg (28.0-32.0); MEAN CORPUSCULAR HGB CONC 33.7 g/dL (31.0-37.0); MEAN CORPUSCULAR VOLUME 77.6 fL (80.0-94.0); MEAN PLATELET VOLUME 8.3 fl (7.4-10.4); MONOCYTES % 12.1 % (2.0-8.0); PLATELET 287 x1000/uL (130-400); RED BLOOD CELL COUNT 3.29 mill/uL (4.7-6.1); RED CELL DISTRIBUTION WIDTH 14.1 % (11.6-14.6); WHITE BLOOD COUNT 20.3 x1000/uL (4.5-11.0)
[2024-03-25 08:00] VITALS: BP 117/67; PULSE 94; RESP 20; TEMP 37.503; O2SAT 98
[2024-03-25] MEDS ORDERED: LIDOCAINE HCL 1% 10 MG/ML 10ML VIAL ONE (08:30)
[2024-03-25 12:00] VITALS: BP 127/75; PULSE 106; RESP 20; TEMP 37.72524; O2SAT 97
[2024-03-25 16:00] VITALS: BP 131/71; PULSE 108; RESP 18; TEMP 37.28076; O2SAT 98
[2024-03-25 20:42] VITALS: BP 111/64; PULSE 96; RESP 16; TEMP 36.6696; O2SAT 97
[2024-03-26] VITALS: BP 137/72; PULSE 103; RESP 19; TEMP 36.55848; O2SAT 99
[2024-03-26 04:00] VITALS: BP 129/76; PULSE 98; RESP 19; TEMP 36.3918; O2SAT 96
[2024-03-26 06:48] LABS: BASOPHILS % 0.5 % (0.0-2.0); DIFFERENTIAL COMMENT 0; EOSINOPHILS % 0.5 % (0.0-5.0); HEMATOCRIT. 23.2 % (42.0-52.0); HEMOGLOBIN. 7.8 g/dL (14.0-18.0); LYMPHOCYTES % 13.5 % (20.0-50.0); MEAN CORPUSCULAR HEMOGLOBIN 26.1 pg (28.0-32.0); MEAN CORPUSCULAR HGB CONC 33.8 g/dL (31.0-37.0); MEAN CORPUSCULAR VOLUME 77.2 fL (80.0-94.0); MEAN PLATELET VOLUME 8.1 fl (7.4-10.4); MONOCYTES % 11.9 % (2.0-8.0); NEUTROPHILS % 73.6 % (40.0-76.0); PLATELET 255 x1000/uL (130-400); RED BLOOD CELL COUNT 3.01 mill/uL (4.7-6.1); RED CELL DISTRIBUTION WIDTH 13.7 % (11.6-14.6); WHITE BLOOD COUNT 15.6 x1000/uL (4.5-11.0)
[2024-03-26 06:59] LABS: CARBON DIOXIDE 22 mEq/L (21-32); CHLORIDE 97 mEq/L (98-107); POTASSIUM 3.9 mEq/L (3.5-5.1); SODIUM 129 mEq/L (136-145)
[2024-03-26 07:00] LABS: CALCIUM 8.3 mg/dL (8.7-10.4)
[2024-03-26 07:05] LABS: GLUCOSE 91 mg/dL (70-105); UREA NITROGEN BLOOD 76 mg/dL (9-23)
[2024-03-26 07:07] LABS: PHOSPHORUS 6.1 mg/dL (2.5-4.9)
[2024-03-26 07:14] LABS: CREATININE 13.4 mg/dL (0.6-1.3)
[2024-03-26 07:45] VITALS: BP 112/70; PULSE 95; RESP 18; TEMP 37.11408; O2SAT 96
[2024-03-26] MEDS: ENOXAPARIN 30MG/0.3ML SYR SUBCUT SCH (11:49)
[2024-03-26 11:57] VITALS: BP 113/68; PULSE 83; RESP 18; TEMP 35.61396; O2SAT 98
[2024-03-26] MEDS ORDERED: MIDODRINE HCL 5MG TABLET PO SCH (13:00)
[2024-03-26 15:58] VITALS: BP 108/68; PULSE 83; RESP 18; TEMP 36.50292; O2SAT 99
[2024-03-26 20:00] VITALS: BP 122/64; PULSE 90; RESP 20; TEMP 36.33624; O2SAT 93
[2024-03-27] VITALS: BP 126/73; PULSE 90; RESP 20; TEMP 36.33624; O2SAT 94
[2024-03-27 04:00] VITALS: BP 127/72; PULSE 83; RESP 20; TEMP 36.28068; O2SAT 94
[2024-03-27 06:21] LABS: BASOPHILS % 0.2 % (0.0-2.0); DIFFERENTIAL COMMENT 0; EOSINOPHILS % 0.4 % (0.0-5.0); HEMATOCRIT. 23.2 % (42.0-52.0); HEMOGLOBIN. 7.8 g/dL (14.0-18.0); LYMPHOCYTES % 13.3 % (20.0-50.0); MEAN CORPUSCULAR HEMOGLOBIN 26.1 pg (28.0-32.0); MEAN CORPUSCULAR HGB CONC 33.8 g/dL (31.0-37.0); MEAN CORPUSCULAR VOLUME 77.3 fL (80.0-94.0); MEAN PLATELET VOLUME 8.2 fl (7.4-10.4); MONOCYTES % 10.2 % (2.0-8.0); NEUTROPHILS % 75.9 % (40.0-76.0); PLATELET 288 x1000/uL (130-400); RED CELL DISTRIBUTION WIDTH 13.9 % (11.6-14.6); WHITE BLOOD COUNT 13.3 x1000/uL (4.5-11.0)
[2024-03-27 06:30] LABS: POTASSIUM 4.4 mEq/L (3.5-5.1)
[2024-03-27 07:00] LABS: CREATININE 14.8 mg/dL (0.6-1.3)
[2024-03-27 08:00] VITALS: BP 114/69; PULSE 80; RESP 18; TEMP 36.50292; O2SAT 97
[2024-03-27 12:00] VITALS: BP 106/59; PULSE 68; RESP 18; TEMP 36.00288; O2SAT 99
[2024-03-27] MEDS: CALCIUM ACETATE 667MG CAPSULE PO SCH (13:00)
[2024-03-27 16:00] VITALS: BP 121/72; PULSE 78; RESP 18; TEMP 35.89176; O2SAT 98
[2024-03-27 20:00] VITALS: BP 119/71; PULSE 80; RESP 20; TEMP 36.55848; O2SAT 98
[2024-03-27] MEDS: CEFAZOLIN 1000MG PREMIX 50 ML IV SCH (20:08)
[2024-03-28] VITALS (15 sets, daily range): BP systolic 113–136; BP diastolic 61–84; PULSE 69–88; RESP 16–20; TEMP 36.55848–37.00296; O2SAT 97–100
[2024-03-28 05:52] LABS: INR 1.1; PROTHROMBIN TIME 12.2 sec (9.6-11.0)
[2024-03-28 05:55] LABS: CARBON DIOXIDE 18 mEq/L (21-32); CHLORIDE 99 mEq/L (98-107); POTASSIUM 4.6 mEq/L (3.5-5.1); SODIUM 132 mEq/L (136-145)
[2024-03-28 05:56] LABS: CALCIUM 8.1 mg/dL (8.7-10.4)
[2024-03-28 06:00] LABS: BASOPHILS % 0.3 % (0.0-2.0); DIFFERENTIAL COMMENT 0; EOSINOPHILS % 0.5 % (0.0-5.0); HEMATOCRIT. 23.4 % (42.0-52.0); LYMPHOCYTES % 12.1 % (20.0-50.0); MEAN CORPUSCULAR HEMOGLOBIN 26.3 pg (28.0-32.0); MEAN CORPUSCULAR HGB CONC 34.2 g/dL (31.0-37.0); MEAN CORPUSCULAR VOLUME 76.9 fL (80.0-94.0); MEAN PLATELET VOLUME 7.9 fl (7.4-10.4); MONOCYTES % 9.9 % (2.0-8.0); NEUTROPHILS % 77.2 % (40.0-76.0); PLATELET 319 x1000/uL (130-400); RED BLOOD CELL COUNT 3.04 mill/uL (4.7-6.1); RED CELL DISTRIBUTION WIDTH 13.8 % (11.6-14.6); WHITE BLOOD COUNT 11.9 x1000/uL (4.5-11.0)
[2024-03-28 06:01] LABS: GLUCOSE 90 mg/dL (70-105); UREA NITROGEN BLOOD 96 mg/dL (9-23)
[2024-03-28 06:59] LABS: CREATININE 15.9 mg/dL (0.6-1.3)
[2024-03-28] MEDS ORDERED: LIDOCAINE HCL 1% 10 MG/ML 10ML VIAL ONE (08:45)
[2024-03-28] MEDS ORDERED: NALOXONE HCL 0.4MG/ML VIAL IV PRN (14:15)
[2024-03-28] MEDS: HYDROCODONE/ACETAMINOPHEN 5/325MG TABLET PO PRN (14:23)
[2024-03-29] VITALS: BP 117/67; PULSE 90; RESP 20; TEMP 36.89184; O2SAT 96
[2024-03-29 04:00] VITALS: BP 121/69; PULSE 85; RESP 18; TEMP 36.89184; O2SAT 98
[2024-03-29 08:00] VITALS: BP 93/56; PULSE 79; RESP 20; TEMP 36.50292; O2SAT 100
[2024-03-29 10:32] LABS: BASOPHILS % 0.6 % (0.0-2.0); DIFFERENTIAL COMMENT 0; EOSINOPHILS % 0.3 % (0.0-5.0); HEMATOCRIT. 22.1 % (42.0-52.0); HEMOGLOBIN. 7.6 g/dL (14.0-18.0); LYMPHOCYTES % 13.9 % (20.0-50.0); MEAN CORPUSCULAR HEMOGLOBIN 26.5 pg (28.0-32.0); MEAN CORPUSCULAR HGB CONC 34.2 g/dL (31.0-37.0); MEAN CORPUSCULAR VOLUME 77.6 fL (80.0-94.0); MEAN PLATELET VOLUME 7.4 fl (7.4-10.4); NEUTROPHILS % 73.2 % (40.0-76.0); PLATELET 292 x1000/uL (130-400); RED BLOOD CELL COUNT 2.85 mill/uL (4.7-6.1); RED CELL DISTRIBUTION WIDTH 13.7 % (11.6-14.6); WHITE BLOOD COUNT 8.2 x1000/uL (4.5-11.0)
[2024-03-29 10:41] LABS: CHLORIDE 101 mEq/L (98-107); POTASSIUM 4.5 mEq/L (3.5-5.1); SODIUM 133 mEq/L (136-145)
[2024-03-29 10:42] LABS: CALCIUM 8.1 mg/dL (8.7-10.4); CARBON DIOXIDE 20 mEq/L (21-32)
[2024-03-29 10:47] LABS: GLUCOSE 82 mg/dL (70-105); UREA NITROGEN BLOOD 74 mg/dL (9-23)
[2024-03-29 10:50] LABS: PHOSPHORUS 7.4 mg/dL (2.5-4.9)
[2024-03-29 10:57] LABS: CREATININE 13.1 mg/dL (0.6-1.3)
[2024-03-29 12:00] VITALS: BP 134/70; PULSE 81; RESP 20; TEMP 36.61404; O2SAT 98
[2024-03-29] MEDS ORDERED: TETRACAINE/BENZOCAINE/BUTAMBEN 20 GM SPRAY MM ONE (12:24)
[2024-03-29] MEDS ORDERED: LIDOCAINE 2% 6ML GLYDO MM ONE (12:24)
[2024-03-29] MEDS ORDERED: MIDAZOLAM HCL 2 MG/2 ML VIAL ONE ×2 (12:33→12:44)
[2024-03-29] MEDS ORDERED: FENTANYL CITRATE/PF 50MCG/ML 2ML VIAL ONE (12:33)
[2024-03-29] MEDS ORDERED: DIPHENHYDRAMINE 50MG/ML VIAL ONE (12:44)
[2024-03-29 16:00] VITALS: BP 122/69; PULSE 87; RESP 20; TEMP 36.6696; O2SAT 100
[2024-03-29] MEDS: CALCIUM ACETATE 667MG CAPSULE PO SCH (18:49)
[2024-03-29] MEDS: FERROUS SULFATE 325MG TABLET PO SCH (19:15)
[2024-03-29 20:00] VITALS: BP 130/73; PULSE 91; RESP 20; TEMP 37.00296; O2SAT 97
[2024-03-30] VITALS (12 sets, daily range): BP systolic 110–138; BP diastolic 58–85; PULSE 74–84; RESP 16–20; TEMP 36.22512–36.6696; O2SAT 96–100
[2024-03-30 10:43] LABS: BASOPHILS % 0.3 % (0.0-2.0); DIFFERENTIAL COMMENT 0; EOSINOPHILS % 0.5 % (0.0-5.0); HEMATOCRIT. 21.5 % (42.0-52.0); HEMOGLOBIN. 7.1 g/dL (14.0-18.0); LYMPHOCYTES % 14.7 % (20.0-50.0); MEAN CORPUSCULAR HEMOGLOBIN 25.8 pg (28.0-32.0); MEAN CORPUSCULAR HGB CONC 33.2 g/dL (31.0-37.0); MEAN CORPUSCULAR VOLUME 77.8 fL (80.0-94.0); MEAN PLATELET VOLUME 7.3 fl (7.4-10.4); MONOCYTES % 12.8 % (2.0-8.0); NEUTROPHILS % 71.7 % (40.0-76.0); PLATELET 289 x1000/uL (130-400); RED BLOOD CELL COUNT 2.77 mill/uL (4.7-6.1); RED CELL DISTRIBUTION WIDTH 13.9 % (11.6-14.6); WHITE BLOOD COUNT 7.5 x1000/uL (4.5-11.0)
[2024-03-30 10:53] LABS: CALCIUM 8.3 mg/dL (8.7-10.4)
[2024-03-30 11:48] LABS: CREATININE 10.7 mg/dL (0.6-1.3)
[2024-03-30] MEDS ORDERED: IPRATROPIUM/ALBUTEROL 0.5-3(2.5)MG/3ML NEB HHN PRN (13:45)
[2024-03-30] MEDS ORDERED: EPOETIN ALFA-EPBX 10,000 UNIT/ML VIAL SUBCUT NR (21:00)
[2024-03-31] VITALS: BP 128/65; PULSE 86; RESP 19; TEMP 36.61404; O2SAT 99
[2024-03-31 04:00] VITALS: BP 128/70; PULSE 80; RESP 19; TEMP 36.33624; O2SAT 98
[2024-03-31 08:00] VITALS: BP 137/76; PULSE 82; RESP 20; TEMP 36.28068; O2SAT 97
[2024-03-31] MEDS: EPOETIN ALFA-EPBX 10,000 UNIT/ML VIAL SUBCUT NR (09:09)
[2024-03-31 12:00] VITALS: BP 135/71; PULSE 80; RESP 18; TEMP 36.44736; O2SAT 96
[2024-03-31 16:00] VITALS: BP 136/74; PULSE 87; RESP 20; TEMP 35.89176; O2SAT 99
[2024-03-31 20:00] VITALS: BP 143/85; PULSE 82; RESP 20; TEMP 36.22512; O2SAT 98
[2024-04-01] VITALS (13 sets, daily range): BP systolic 126–151; BP diastolic 71–87; PULSE 82–96; RESP 16–20; TEMP 36.00288–36.78072; O2SAT 96–100
[2024-04-01 07:03] LABS: CHLORIDE 103 mEq/L (98-107); POTASSIUM 5.1 mEq/L (3.5-5.1); SODIUM 133 mEq/L (136-145)
[2024-04-01 07:04] LABS: CALCIUM 8.4 mg/dL (8.7-10.4); CARBON DIOXIDE 20 mEq/L (21-32)
[2024-04-01 07:08] LABS: GLUCOSE 88 mg/dL (70-105)
[2024-04-01 07:09] LABS: UREA NITROGEN BLOOD 76 mg/dL (9-23)
[2024-04-01 07:11] LABS: PHOSPHORUS 6.3 mg/dL (2.5-4.9)
[2024-04-01 07:18] LABS: CREATININE 12.8 mg/dL (0.6-1.3)
[2024-04-01 07:22] LABS: BASOPHILS % 0.3 % (0.0-2.0); DIFFERENTIAL COMMENT 0; EOSINOPHILS % 0.4 % (0.0-5.0); HEMATOCRIT. 21.4 % (42.0-52.0); HEMOGLOBIN. 7.2 g/dL (14.0-18.0); LYMPHOCYTES % 24.9 % (20.0-50.0); MEAN CORPUSCULAR HEMOGLOBIN 26.4 pg (28.0-32.0); MEAN CORPUSCULAR HGB CONC 33.8 g/dL (31.0-37.0); MEAN CORPUSCULAR VOLUME 78.1 fL (80.0-94.0); MEAN PLATELET VOLUME 7.3 fl (7.4-10.4); MONOCYTES % 12.3 % (2.0-8.0); NEUTROPHILS % 62.1 % (40.0-76.0); PLATELET 289 x1000/uL (130-400); RED BLOOD CELL COUNT 2.73 mill/uL (4.7-6.1); RED CELL DISTRIBUTION WIDTH 13.9 % (11.6-14.6); WHITE BLOOD COUNT 5.8 x1000/uL (4.5-11.0)
[2024-04-02] VITALS: BP 123/75; PULSE 84; RESP 19; TEMP 36.89184; O2SAT 97
[2024-04-02 04:00] VITALS: BP 127/71; PULSE 83; RESP 18; TEMP 36.00288; O2SAT 98
[2024-04-02 08:00] VITALS: BP 138/75; PULSE 91; RESP 18; TEMP 36.61404; O2SAT 99
[2024-04-02 08:28] LABS: HEMATOCRIT 22.2 % (42.0-52.0); HEMOGLOBIN 7.6 g/dL (14.0-18.0); MEAN CORPUSCULAR HEMOGLOBIN 26.8 pg (28.0-32.0); MEAN CORPUSCULAR VOLUME 78.8 fL (80.0-94.0); PLATELET 269 x1000/uL (130-400); POTASSIUM 5.2 mEq/L (3.5-5.1); RED BLOOD CELL COUNT 2.82 mill/uL (4.7-6.1); RED CELL DISTRIBUTION WIDTH 14.1 % (11.6-14.6); WHITE BLOOD COUNT 5.4 x1000/uL (4.5-11.0)
[2024-04-02 08:29] LABS: CALCIUM 8.3 mg/dL (8.7-10.4)
[2024-04-02 08:36] LABS: CREATININE 9.4 mg/dL (0.6-1.3)
[2024-04-02 12:00] VITALS: BP 127/69; PULSE 95; RESP 18; TEMP 36.55848; O2SAT 98
[2024-04-02 16:00] VITALS: BP 130/78; PULSE 83; RESP 18; TEMP 36.44736; O2SAT 100
[2024-04-02 20:00] VITALS: BP 118/68; PULSE 89; RESP 18; TEMP 36.55848; O2SAT 98
[2024-04-03] VITALS: BP 122/72; PULSE 82; RESP 18; TEMP 36.22512; O2SAT 99
[2024-04-03 04:00] VITALS: BP 134/76; PULSE 83; RESP 18; TEMP 36.55848; O2SAT 98
[2024-04-03 07:04] LABS: CALCIUM 8.4 mg/dL (8.7-10.4); CARBON DIOXIDE 22 mEq/L (21-32); CHLORIDE 103 mEq/L (98-107); POTASSIUM 5.2 mEq/L (3.5-5.1); SODIUM 134 mEq/L (136-145)
[2024-04-03 07:09] LABS: GLUCOSE 82 mg/dL (70-105)
[2024-04-03 07:10] LABS: UREA NITROGEN BLOOD 60 mg/dL (9-23)
[2024-04-03 07:12] LABS: PHOSPHORUS 4.5 mg/dL (2.5-4.9)
[2024-04-03 07:13] LABS: BASOPHILS % 0.3 % (0.0-2.0); DIFFERENTIAL COMMENT 0; EOSINOPHILS % 0.4 % (0.0-5.0); HEMATOCRIT. 21.5 % (42.0-52.0); HEMOGLOBIN. 7.3 g/dL (14.0-18.0); LYMPHOCYTES % 29.1 % (20.0-50.0); MEAN CORPUSCULAR HEMOGLOBIN 26.3 pg (28.0-32.0); MEAN CORPUSCULAR HGB CONC 33.8 g/dL (31.0-37.0); MEAN CORPUSCULAR VOLUME 77.8 fL (80.0-94.0); MEAN PLATELET VOLUME 7.3 fl (7.4-10.4); MONOCYTES % 7.7 % (2.0-8.0); NEUTROPHILS % 62.5 % (40.0-76.0); PLATELET 279 x1000/uL (130-400); RED BLOOD CELL COUNT 2.77 mill/uL (4.7-6.1); WHITE BLOOD COUNT 5.3 x1000/uL (4.5-11.0)
[2024-04-03 07:15] LABS: CREATININE 11.2 mg/dL (0.6-1.3)
[2024-04-03 08:00] VITALS: BP 131/71; PULSE 95; RESP 16; TEMP 36.44736; O2SAT 99
[2024-04-03] MEDS: SODIUM ZIRCONIUM CYCLOSILICATE 10GM/PACKET PO SCH (10:53)
[2024-04-03 12:00] VITALS: BP 135/81; PULSE 84; RESP 15; TEMP 36.22512; O2SAT 98
[2024-04-03 16:00] VITALS: BP 133/79; PULSE 86; RESP 16; TEMP 36.22512; O2SAT 98
[2024-04-03 20:00] VITALS: BP 132/79; PULSE 89; RESP 16; TEMP 36.50292; O2SAT 98
[2024-04-04] VITALS: BP 137/81; PULSE 86; RESP 18; TEMP 36.3918; O2SAT 98
[2024-04-04 04:00] VITALS: BP 137/82; PULSE 86; RESP 16; TEMP 36.44736; O2SAT 98
[2024-04-04 07:21] LABS: BASOPHILS % 0.4 % (0.0-2.0); DIFFERENTIAL COMMENT 0; EOSINOPHILS % 0.6 % (0.0-5.0); MEAN CORPUSCULAR HEMOGLOBIN 26.8 pg (28.0-32.0); MEAN CORPUSCULAR HGB CONC 34.5 g/dL (31.0-37.0); MEAN CORPUSCULAR VOLUME 77.7 fL (80.0-94.0); MEAN PLATELET VOLUME 7.3 fl (7.4-10.4); MONOCYTES % 8.5 % (2.0-8.0); NEUTROPHILS % 64.5 % (40.0-76.0); PLATELET 290 x1000/uL (130-400); RED BLOOD CELL COUNT 2.62 mill/uL (4.7-6.1); RED CELL DISTRIBUTION WIDTH 13.9 % (11.6-14.6)
[2024-04-04 07:26] LABS: CALCIUM 8.3 mg/dL (8.7-10.4); POTASSIUM 5.1 mEq/L (3.5-5.1)
[2024-04-04 07:53] LABS: HEMATOCRIT. 20.4 % (42.0-52.0)
[2024-04-04 07:54] LABS: WHITE BLOOD COUNT 5.2 x1000/uL (4.5-11.0)
[2024-04-04 07:56] LABS: CREATININE 12.3 mg/dL (0.6-1.3)
[2024-04-04 08:00] VITALS: BP 131/79; PULSE 77; RESP 18; TEMP 36.61404; O2SAT 97
[2024-04-04 12:00] VITALS: BP 138/88; PULSE 81; RESP 16; TEMP 36.44736; O2SAT 100
[2024-04-04 15:55] VITALS: BP 133/82; PULSE 85; RESP 18; TEMP 36.55848; O2SAT 98
[2024-04-04 20:00] VITALS: BP 132/80; PULSE 91; RESP 20; TEMP 36.55848; O2SAT 96
[2024-04-05] VITALS (29 sets, daily range): BP systolic 131–160; BP diastolic 61–88; PULSE 67–99; RESP 15–21; TEMP 36.114–37.05852; O2SAT 95–100
[2024-04-05] MEDS: FOLIC ACID/VITAMIN B COMP W-C TABLET PO SCH (08:10)
[2024-04-05 08:32] LABS: BASOPHILS % 0.3 % (0.0-2.0); DIFFERENTIAL COMMENT 0; EOSINOPHILS % 0.9 % (0.0-5.0); HEMATOCRIT. 21.5 % (42.0-52.0); HEMOGLOBIN. 7.1 g/dL (14.0-18.0); LYMPHOCYTES % 23.9 % (20.0-50.0); MEAN CORPUSCULAR HEMOGLOBIN 25.6 pg (28.0-32.0); MEAN CORPUSCULAR HGB CONC 32.9 g/dL (31.0-37.0); MEAN CORPUSCULAR VOLUME 77.8 fL (80.0-94.0); MEAN PLATELET VOLUME 7.2 fl (7.4-10.4); MONOCYTES % 10.7 % (2.0-8.0); NEUTROPHILS % 64.2 % (40.0-76.0); PLATELET 314 x1000/uL (130-400); RED BLOOD CELL COUNT 2.76 mill/uL (4.7-6.1); RED CELL DISTRIBUTION WIDTH 14.1 % (11.6-14.6); WHITE BLOOD COUNT 6.3 x1000/uL (4.5-11.0)
[2024-04-05 08:48] LABS: POTASSIUM 5.5 mEq/L (3.5-5.1)
[2024-04-05 08:49] LABS: CALCIUM 8.3 mg/dL (8.7-10.4)
[2024-04-05] MEDS ORDERED: LIDOCAINE HCL 1% 10 MG/ML 10ML VIAL ONE (08:54)
[2024-04-05 09:03] LABS: PHOSPHORUS 5.2 mg/dL (2.5-4.9)
[2024-04-05] MEDS ORDERED: FENTANYL CITRATE/PF 50MCG/ML 2ML VIAL ONE (09:16)
[2024-04-05 09:53] LABS: CREATININE 13.6 mg/dL (0.6-1.3)
[2024-04-05] MEDS ORDERED: NALOXONE HCL 0.4MG/ML VIAL IV PRN (11:45)
[2024-04-05] MEDS: HYDROCODONE/ACETAMINOPHEN 5/325MG TABLET PO PRN (11:49)
[2024-04-05] MEDS: EPOETIN ALFA-EPBX 4,000 UNIT/ML VIAL SUBCUT SCH (20:22)
[2024-04-06] VITALS: BP 148/80; PULSE 82; RESP 20; TEMP 36.114; O2SAT 97
[2024-04-06 04:00] VITALS: BP 155/74; PULSE 87; RESP 20; TEMP 36.9474; O2SAT 97
[2024-04-06 06:57] LABS: CALCIUM 8.2 mg/dL (8.7-10.4); POTASSIUM 5.2 mEq/L (3.5-5.1)
[2024-04-06 07:10] LABS: HEMATOCRIT 23.9 % (42.0-52.0); MEAN CORPUSCULAR HGB CONC 33.6 g/dL (31.0-37.0); MEAN CORPUSCULAR VOLUME 80.3 fL (80.0-94.0); PLATELET 318 x1000/uL (130-400); RED BLOOD CELL COUNT 2.98 mill/uL (4.7-6.1); RED CELL DISTRIBUTION WIDTH 15.5 % (11.6-14.6); WHITE BLOOD COUNT 7.2 x1000/uL (4.5-11.0)
[2024-04-06 07:51] LABS: CREATININE 10.9 mg/dL (0.6-1.3)
[2024-04-06 08:30] VITALS: BP 168/65; PULSE 89; RESP 18; TEMP 36.61404; O2SAT 94
[2024-04-06] MEDS: SODIUM ZIRCONIUM CYCLOSILICATE 10GM/PACKET PO NR (08:58)
[2024-04-06 12:00] VITALS: BP 156/72; PULSE 90; RESP 18; TEMP 36.114; O2SAT 97
[2024-04-06 16:00] VITALS: BP 170/94; PULSE 18; RESP 18; TEMP 37.39188; O2SAT 97
[2024-04-06] MEDS: HYDRALAZINE 20MG/ML VIAL IV PRN (17:49)
[2024-04-06 20:00] VITALS: BP 155/87; PULSE 93; RESP 20; TEMP 36.6696; O2SAT 96
[2024-04-06] MEDS ORDERED: HYDRALAZINE HCL 50MG TABLET PO SCH (21:00)
[2024-04-06] MEDS: HYDRALAZINE HCL 100MG TABLET PO SCH (21:47)
[2024-04-07] VITALS (9 sets, daily range): BP systolic 115–178; BP diastolic 60–101; PULSE 82–113; RESP 18–20; TEMP 36.22512–38.44752; O2SAT 96–99
[2024-04-07 07:27] LABS: POTASSIUM 4.9 mEq/L (3.5-5.1)
[2024-04-07 07:28] LABS: CALCIUM 8.3 mg/dL (8.7-10.4)
[2024-04-07 07:40] LABS: CREATININE 12.3 mg/dL (0.6-1.3)
[2024-04-07 08:08] LABS: BASOPHILS % 0.3 % (0.0-2.0); EOSINOPHILS % 1.1 % (0.0-5.0); HEMATOCRIT. 22.9 % (42.0-52.0); HEMOGLOBIN. 7.7 g/dL (14.0-18.0); LYMPHOCYTES % 17.7 % (20.0-50.0); MEAN CORPUSCULAR HEMOGLOBIN 26.9 pg (28.0-32.0); MEAN CORPUSCULAR HGB CONC 33.6 g/dL (31.0-37.0); MEAN CORPUSCULAR VOLUME 80.1 fL (80.0-94.0); MONOCYTES % 12.5 % (2.0-8.0); NEUTROPHILS % 68.4 % (40.0-76.0); PLATELET 284 x1000/uL (130-400); RED BLOOD CELL COUNT 2.86 mill/uL (4.7-6.1); RED CELL DISTRIBUTION WIDTH 15.5 % (11.6-14.6); WHITE BLOOD COUNT 8.1 x1000/uL (4.5-11.0)
[2024-04-07] MEDS ORDERED: AMLODIPINE 5MG TABLET PO SCH (09:00)
[2024-04-07] MEDS: SODIUM ZIRCONIUM CYCLOSILICATE 10GM/PACKET PO NR (09:21)
[2024-04-07] MEDS: AMLODIPINE 10MG TABLET PO SCH (09:21)
[2024-04-07] MEDS ORDERED: DIPHENHYDRAMINE 50MG/ML VIAL ONE (12:54)
[2024-04-07] MEDS ORDERED: HEPARIN 1000 UNITS/ML 10ML ONE (12:54)
[2024-04-07] MEDS ORDERED: VERAPAMIL HCL 2.5 MG/1 ML 2ML VIAL IV ONE (12:54)
[2024-04-07] MEDS ORDERED: LIDOCAINE HCL 1% 10 MG/ML 10ML VIAL ONE (12:54)
[2024-04-07] MEDS ORDERED: IODIXANOL 320MG/ML 100 ML BOTTLE IV ONE (12:54)
[2024-04-08] VITALS: BP 159/87; PULSE 106; RESP 18; TEMP 37.00296; O2SAT 99
[2024-04-08 04:00] VITALS: BP 149/88; PULSE 103; RESP 18; TEMP 36.89184; O2SAT 98
[2024-04-08 06:09] LABS: POTASSIUM 4.4 mEq/L (3.5-5.1)
[2024-04-08 06:10] LABS: CALCIUM 8.7 mg/dL (8.7-10.4)
[2024-04-08 06:16] LABS: CREATININE 9.9 mg/dL (0.6-1.3)
[2024-04-08 06:20] LABS: HEMATOCRIT 24.5 % (42.0-52.0); HEMOGLOBIN 8.3 g/dL (14.0-18.0); MEAN CORPUSCULAR HEMOGLOBIN 26.8 pg (28.0-32.0); MEAN CORPUSCULAR HGB CONC 33.9 g/dL (31.0-37.0); MEAN CORPUSCULAR VOLUME 79.1 fL (80.0-94.0); PLATELET 293 x1000/uL (130-400); RED CELL DISTRIBUTION WIDTH 15.4 % (11.6-14.6); WHITE BLOOD COUNT 8.9 x1000/uL (4.5-11.0)
[2024-04-08 08:13] VITALS: BP 179/101; PULSE 113; RESP 18; TEMP 36.61404; O2SAT 100
[2024-04-08 12:16] VITALS: BP 148/88; PULSE 100; RESP 18; TEMP 36.55848; O2SAT 100
[2024-04-08] MEDS: ATENOLOL 25MG TABLET PO SCH (12:18)
[2024-04-08 16:00] VITALS: BP 151/75; PULSE 91; RESP 18; TEMP 36.28068; O2SAT 100
[2024-04-08 20:00] VITALS: BP 126/76; PULSE 92; RESP 18; TEMP 36.72516; O2SAT 96
[2024-04-09] VITALS (8 sets, daily range): BP systolic 122–158; BP diastolic 70–93; PULSE 66–98; RESP 17–19; TEMP 36.3918–37.503; O2SAT 95–99
[2024-04-09] MEDS ORDERED: FERR-63 PO (11:17)
[2024-04-09] MEDS ORDERED: HYDR100T11 MT (11:17)
[2024-04-09] MEDS ORDERED: ATEN-42 PO (11:17)
[2024-04-09] MEDS ORDERED: FOLI0.8T53 PO (11:17)
[2024-04-09] MEDS ORDERED: CALC667C MT (11:17)
[2024-04-09] MEDS ORDERED: ATOR20TA PO (11:17)
[2024-04-09] MEDS ORDERED: AMLO10TA4 MT (11:17)
[2024-04-09] MEDS ORDERED: LACT1CAP77 PO (11:17)
== END 2024-04-09 15:30 | disposition home or self-care (01) | DRG 466 ==
LOC: ER 13:28 → 5WST 17:14 → EDBEDREQ 17:20 → 5WST 23:50 → 8WST 03-24 03:16
PROVIDERS: ADMIT Internal Medicine; ATTEND Internal Medicine
PROC: 05PYX3Z Removal of Infusion Device from Upper Vein, External Approach (ICD-10-PCS; 2024-03-25)
PROC: 5A1D70Z Performance of Urinary Filtration, Intermittent, Less than 6 Hours Per Day (ICD-10-PCS; 2024-03-28)
PROC: 02HV33Z Insertion of Infusion Device into Superior Vena Cava, Percutaneous Approach (ICD-10-PCS; 2024-03-28)
PROC: B548ZZA Ultrasonography of Superior Vena Cava, Guidance (ICD-10-PCS; 2024-03-28)
PROC: 5A1D70Z Performance of Urinary Filtration, Intermittent, Less than 6 Hours Per Day (ICD-10-PCS; 2024-03-30)
PROC: 5A1D70Z Performance of Urinary Filtration, Intermittent, Less than 6 Hours Per Day (ICD-10-PCS; 2024-04-01)
PROC: 0JH60XZ Insertion of Tunneled Vascular Access Device into Chest Subcutaneous Tissue and Fascia, Open Approach (ICD-10-PCS; principal; 2024-04-05)
PROC: 02HV33Z Insertion of Infusion Device into Superior Vena Cava, Percutaneous Approach (ICD-10-PCS; 2024-04-05)
PROC: B548ZZA Ultrasonography of Superior Vena Cava, Guidance (ICD-10-PCS; 2024-04-05)
PROC: 5A1D70Z Performance of Urinary Filtration, Intermittent, Less than 6 Hours Per Day (ICD-10-PCS; 2024-04-05)
PROC: 30233N1 Transfusion of Nonautologous Red Blood Cells into Peripheral Vein, Percutaneous Approach (ICD-10-PCS; 2024-04-05)
PROC: 5A1D70Z Performance of Urinary Filtration, Intermittent, Less than 6 Hours Per Day (ICD-10-PCS; 2024-04-07)
PROC: 5A1D70Z Performance of Urinary Filtration, Intermittent, Less than 6 Hours Per Day (ICD-10-PCS; 2024-04-09)
DX: T82.7XXA Infection and inflammatory reaction due to other cardiac and vascular devices, implants and grafts, initial encounter (principal); N18.6 End stage renal disease; A41.01 Sepsis due to Methicillin susceptible Staphylococcus aureus; I76 Septic arterial embolism; I33.0 Acute and subacute infective endocarditis; I13.2 Hypertensive heart and chronic kidney disease with heart failure and with stage 5 chronic kidney disease, or end stage renal disease; E87.1 Hypo-osmolality and hyponatremia; D63.1 Anemia in chronic kidney disease; R65.20 Severe sepsis without septic shock; J18.9 Pneumonia, unspecified organism; E11.22 Type 2 diabetes mellitus with diabetic chronic kidney disease; D50.9 Iron deficiency anemia, unspecified; E66.9 Obesity, unspecified; E87.6 Hypokalemia; I45.10 Unspecified right bundle-branch block; N39.0 Urinary tract infection, site not specified; K52.9 Noninfective gastroenteritis and colitis, unspecified; N40.0 Benign prostatic hyperplasia without lower urinary tract symptoms; N28.1 Cyst of kidney, acquired; D36.13 Benign neoplasm of peripheral nerves and autonomic nervous system of lower limb, including hip; E11.69 Type 2 diabetes mellitus with other specified complication; F32.A Depression, unspecified; F41.9 Anxiety disorder, unspecified; I34.0 Nonrheumatic mitral (valve) insufficiency; I50.22 Chronic systolic (congestive) heart failure; M46.44 Discitis, unspecified, thoracic region; M46.24 Osteomyelitis of vertebra, thoracic region; E21.3 Hyperparathyroidism, unspecified; M25.531 Pain in right wrist; E78.5 Hyperlipidemia, unspecified; R63.4 Abnormal weight loss; Y84.1 Kidney dialysis as the cause of abnormal reaction of the patient, or of later complication, without mention of misadventure at the time of the procedure; R91.1 Solitary pulmonary nodule; Z68.29 Body mass index [BMI] 29.0-29.9, adult; Z99.2 Dependence on renal dialysis; Y92.89 Other specified places as the place of occurrence of the external cause; Z79.51 Long term (current) use of inhaled steroids; Z79.899 Other long term (current) drug therapy; Z82.49 Family history of ischemic heart disease and other diseases of the circulatory system; Z83.3 Family history of diabetes mellitus; Z86.16 Personal history of COVID-19; Z98.1 Arthrodesis status
CPT/HCPCS: 36415; 36556; 36558; 36589; 71045; 71250; 72141; 72146; 72148; 74176; 76705; 76937; 77001; 80048; 80053; 80061; 80076; 80202; 80305; 81003; 82306; 82550; 82553; 82607; 82728; 82746; 82962; 83036; 83540; 83550; 83605; 83735; 83880; 83930; 83935; 84100; 84145; 84300; 84439; 84443; 84484; 85025; 85027; 85379; 85651; 86705; 86709; 86850; 86900; 86920; 87015; 87045; 87070; 87077; 87186; 87340; 87427; 87493; 89055; 90935; 93005; 93306; 93312; 93880; 93970; 99152; 99153; 99285; C1750; C1752; C1769; C1887; C1893; J0360; J0690; J0885; J1200; J1642; J1644; J1650; J2250; J2543; J3010; J3370; J3490; J7030; J7060; P9016; Q0161; Q9967; G0500